=== PATIENT | male | born 1960 | race Caucasian/White ===

== ENCOUNTER 2017-08-03 10:21 | Inpatient (IN) | payer OTHER ==
[2017-08-03] MEDS ORDERED: MAGNESIUM SULFATE-D5W PMX 1 GM in DEXTROSE/WATER 1 100ML.BAG IVPB STA (10:55)
[2017-08-03] MEDS ORDERED: IPRATROPIUM 0.5 MG/2.5 ML NEBU INHALATION STA (10:55)
[2017-08-03] MEDS ORDERED: methylPREDNISolone SOD SUCCI 125 MG/2 ML VIAL IV STA (10:55)
[2017-08-03] MEDS ORDERED: ALBUTEROL NEBULIZED 2.5 MG/3 ML INHALATION STA (10:55)
[2017-08-03 11:46] LABS: Anisocytosis Slight; Basophils # (A) 0.1 k/uL (0-0.2); Basophils % (A) 0 %; Eosinophils # (A) 0.1 k/uL (0-0.7); Eosinophils % (A) 0 %; HCT 45.1 % (39.0-53.0); Lymphocytes # (A) 1.9 k/uL (1.0-4.8); Lymphocytes % (A) 14 %; MCHC 33.2 g/dL (31.0-37.0); MCV 81.4 fL (80.0-100.0); Mean Platelet Volume 6.5; Microcytosis Slight; Monocytes # (A) 0.6 k/uL (0-1.0); Monocytes % (A) 4 %; Neutrophils # (A) 10.4 k/uL (1.3-7.7); Neutrophils % (A) 79 %; Platelet Count 191 k/uL (150-450); RBC 5.54 m/uL (4.30-5.90); RDW 18.8 % (11.5-15.5); WBC 13.2 k/uL (3.8-10.6)
[2017-08-03 11:51] LABS: ALT 45 U/L (21-72); AST 24 U/L (17-59); Albumin 3.7 g/dL (3.5-5.0); Alkaline Phosphatase 67 U/L (38-126); Anion Gap 10 mmol/L; Blood Urea Nitrogen 23 mg/dL (9-20); Calcium 9.4 mg/dL (8.4-10.2); Carbon Dioxide 30 mmol/L (22-30); Chloride 100 mmol/L (98-107); Glucose 102 mg/dL (74-99); Potassium 4.4 mmol/L (3.5-5.1); Sodium 140 mmol/L (137-145); Total Bilirubin 0.4 mg/dL (0.2-1.3); Total Protein 6.6 g/dL (6.3-8.2)
[2017-08-03 11:59] LABS: Prothrombin Time 10.1 sec (9.0-12.0)
[2017-08-03 12:03] LABS: Partial Thromboplastin Time 21.4 sec (22.0-30.0)
--- NOTE | 2017-08-03 12:31 | XR ---
EXAMINATION TYPE: XR chest 2V DATE OF EXAM: 08/03/2017 COMPARISON: Prior chest x-ray 04/26/2016 HISTORY: Difficulty breathing TECHNIQUE: Frontal and lateral views of the chest are obtained. FINDINGS: There is a left-sided pneumothorax likely approximately 50%. No evident effusion. Basilar atelectasis noted on the left. Cardiac mediastinal silhouette, pulmonary vascularity and baldemar within normal limits accounting for patient rotation towards the right. IMPRESSION: Left-sided pneumothorax as described. Patient is rotated. Tension not identified with ce rtainty. Report relayed to Dr. Mazariegos telephonically at the time of interpretation.
--- NOTE | 2017-08-03 12:34 | ED ---
SOB HPI - General Chief Complaint: Shortness of Breath Stated Complaint: SOB Time Seen by Provider: 08/03/17 10:48 Source: patient Mode of arrival: ambulatory Limitations: no limitations - History of Present Illness Initial Comments: Patient presents with shortness of breath, getting worse for several days. He has a history of COPD. He has taken breathing treatments and steroids at home, but with no relief. Patient has no fevers or chills. He has no chest pain or tightness. He has no belly or back pain. He has no nausea or vomiting. Nothing is making his symptoms better. They're only getting worse over time. He has no lightheadedness or dizziness. He denies syncope or presyncope. - Related Data Home Medications Medication Instructions Recorded Confirmed Cholecalciferol [Vitamin D3] 1,000 unit PO BID 01/11/15 08/03/17 Montelukast [Singulair] 10 mg PO HS 01/11/15 08/03/17 Simvastatin [Zocor] 20 mg PO HS 01/11/15 08/03/17 Vit C/E/Zn/Coppr/Lutein/Zeaxan 1 cap PO BID 01/11/15 08/03/17 [Preservision Areds 2 Softgel] Acidophilus Pearls 1 cap PO DAILY 04/26/16 08/03/17 Citalopram Hydrobromide [CeleXA] 40 mg PO DAILY 04/26/16 08/03/17 Alyssa C 1,000 mg PO BID 04/26/16 08/03/17 Multivit-Min/FA/Lycopen/Lutein 1 tab PO DAILY 04/26/16 08/03/17 [Centrum Silver Tablet] Rivaroxaban [Xarelto] 20 mg PO DAILY 04/26/16 08/03/17 Albuterol Inhaler [Ventolin Hfa 1 puff INHALATION RT-Q6H PRN 08/03/17 08/03/17 Inhaler] Glucosam/Elijah-Msm1/C/Nikunj/Bosw 1 tab PO BID 08/03/17 08/03/17 [Glucosamine-Chondroitin Tablet] Psyllium Husk [Metamucil] 0.8 gm PO DAILY 08/03/17 08/03/17 Testosterone Cypionate 200 mg IM Q14D 08/03/17 08/03/17 [Depo-Testosterone] Tiotropium 18 Mcg/Puff [Spiriva] 1 cap INHALATION RT-DAILY 08/03/17 08/03/17 Allergies Allergy/AdvReac Type Severity Reaction Status Date / Time adhesive tape Allergy Rash/Hives Verified 08/03/17 10:57 Review of Systems ROS Statement: Those systems with pertinent positive or pertinent negative responses have been documented in the HPI. ROS Other: All systems not noted in ROS Statement are negative. Past Medical History Past Medical History: COPD, Hyperlipidemia Additional Past Medical History / Comment(s): Pulmonary embolism involving the RML arteries diagnosed in 01/2016, obesity, restless leg syndrome History of Any Multi-Drug Resistant Organisms: None Reported Past Surgical History: Appendectomy, Hernia Repair, Tonsillectomy Additional Past Surgical History / Comment(s): tic delaroux surgery, three incisonal hernias repairs and appendectomy for a perforated appendix Past Psychological History: Anxiety Smoking Status: Former smoker Past Alcohol Use History: Occasional Past Drug Use History: None Reported - Past Family History Father Additional Family Medical History / Comment(s): bronchitis pleuricy. dad's mom had leukemia Mother Additional Family Medical History / Comment(s): emphysemia General Exam Limitations: no limitations General appearance: alert, in no apparent distress Head exam: Present: atraumatic, normocephalic, normal inspection Eye exam: Present: normal appearance, PERRL, EOMI. Absent: scleral icterus, conjunctival injection, periorbital swelling ENT exam: Present: normal exam, mucous membranes moist Neck exam: Present: normal inspection. Absent: tenderness, meningismus, lymphadenopathy Respiratory exam: Present: respiratory distress, wheezes. Absent: rales, rhonchi, stridor Cardiovascular Exam: Present: regular rate, normal rhythm, normal heart sounds. Absent: systolic murmur, diastolic murmur, rubs, gallop, clicks GI/Abdominal exam: Present: soft, normal bowel sounds. Absent: distended, tenderness, guarding, rebound, rigid Extremities exam: Present: normal inspection, full ROM, normal capillary refill. Absent: tenderness, pedal edema, joint swelling, calf tenderness Back exam: Present: normal inspection Neurological exam: Present: alert, oriented X3, CN II-XII intact Psychiatric exam: Present: normal affect, normal mood Skin exam: Present: warm, dry, intact, normal color. Absent: rash Course Vital Signs 08/03/17 08/03/17 08/03/17 10:44 11:09 11:27 Temperature 98.1 F Pulse Rate 81 85 85 Respiratory 22 Rate Blood Pressure 133/70 O2 Sat by Pulse 92 L Oximetry 08/03/17 08/03/17 11:49 12:01 Temperature Pulse Rate 88 99 Respiratory 20 Rate Blood Pressure 133/78 O2 Sat by Pulse 92 L Oximetry Medical Decision Making - Medical Decision Making Patient presents with shortness of breath. I gave him IV magnesium, IV Solu- Medrol, breathing treatments. Chest x-ray reveals no pneumonia, but is positive for left-sided pneumothorax. Patient is placed on supplement oxygen and will be admitted to the hospital. - Lab Data Result diagrams: 08/03/17 11:25 08/03/17 11:25 Lab Results 08/03/17 08/03/17 08/03/17 Range/Units 11:25 11:25 11:25 WBC 13.2 H (3.8-10.6) k/uL RBC 5.54 (4.30-5.90) m/uL Hgb 15.0 (13.0-17.5) gm/dL Hct 45.1 (39.0-53.0) % MCV 81.4 (80.0-100.0) fL MCH 27.0 (25.0-35.0) pg MCHC 33.2 (31.0-37.0) g/dL RDW 18.8 H (11.5-15.5) % Plt Count 191 (150-450) k/uL Neutrophils % 79 % Lymphocytes % 14 % Monocytes % 4 % Eosinophils % 0 % Basophils % 0 % Neutrophils # 10.4 H (1.3-7.7) k/uL Lymphocytes # 1.9 (1.0-4.8) k/uL Monocytes # 0.6 (0-1.0) k/uL Eosinophils # 0.1 (0-0.7) k/uL Basophils # 0.1 (0-0.2) k/uL Anisocytosis Slight Microcytosis Slight PT (9.0-12.0) sec INR (<1.2) APTT (22.0-30.0) sec Sodium 140 (137-145) mmol/L Potassium 4.4 (3.5-5.1) mmol/L Chloride 100 (98-107) mmol/L Carbon Dioxide 30 (22-30) mmol/L Anion Gap 10 mmol/L BUN 23 H (9-20) mg/dL Creatinine 0.62 L (0.66-1.25) mg/dL Est GFR (CKD-EPI)AfAm >90 (>60 ml/min/1.73 sqM) Est GFR (CKD-EPI)NonAf >90 (>60 ml/min/1.73 sqM) Glucose 102 H (74-99) mg/dL Calcium 9.4 (8.4-10.2) mg/dL Total Bilirubin 0.4 (0.2-1.3) mg/dL AST 24 (17-59) U/L ALT 45 (21-72) U/L Alkaline Phosphatase 67 (38-126) U/L Troponin I (0.000-0.034) ng/mL NT-Pro-B Natriuret Pep 34 pg/mL Total Protein 6.6 (6.3-8.2) g/dL Albumin 3.7 (3.5-5.0) g/dL 08/03/17 08/03/17 Range/Units 11:25 11:25 WBC (3.8-10.6) k/uL RBC (4.30-5.90) m/uL Hgb (13.0-17.5) gm/dL Hct (39.0-53.0) % MCV (80.0-100.0) fL MCH (25.0-35.0) pg MCHC (31.0-37.0) g/dL RDW (11.5-15.5) % Plt Count (150-450) k/uL Neutrophils % % Lymphocytes % % Monocytes % % Eosinophils % % Basophils % % Neutrophils # (1.3-7.7) k/uL Lymphocytes # (1.0-4.8) k/uL Monocytes # (0-1.0) k/uL Eosinophils # (0-0.7) k/uL Basophils # (0-0.2) k/uL Anisocytosis Microcytosis PT 10.1 (9.0-12.0) sec INR 1.0 (<1.2) APTT 21.4 L (22.0-30.0) sec Sodium (137-145) mmol/L Potassium (3.5-5.1) mmol/L Chloride (98-107) mmol/L Carbon Dioxide (22-30) mmol/L Anion Gap mmol/L BUN (9-20) mg/dL Creatinine (0.66-1.25) mg/dL Est GFR (CKD-EPI)AfAm (>60 ml/min/1.73 sqM) Est GFR (CKD-EPI)NonAf (>60 ml/min/1.73 sqM) Glucose (74-99) mg/dL Calcium (8.4-10.2) mg/dL Total Bilirubin (0.2-1.3) mg/dL AST (17-59) U/L ALT (21-72) U/L Alkaline Phosphatase (38-126) U/L Troponin I <0.012 (0.000-0.034) ng/mL NT-Pro-B Natriuret Pep pg/mL Total Protein (6.3-8.2) g/dL Albumin (3.5-5.0) g/dL 08/03/17 12:33 Twelve-lead EKG shows ventricular rate 84 bpm, normal OH interval and QRS complexes, no ST elevation or depression, interpreted by me as normal sinus rhythm. Critical Care Time Critical Care Time: Yes Total Critical Care Time: 35 Disposition Clinical Impression: COPD (chronic obstructive pulmonary disease) Disposition: ADMITTED IP TO THIS HOSP Condition: Serious Referrals: Yvan Barton MD [Primary Care Provider] - 1-2 days
[2017-08-03] MEDS ORDERED: ONDANSETRON 4 MG/2 ML VIAL IVP PRN (12:35)
[2017-08-03] MEDS ORDERED: NALOXONE 0.4 MG/ML 1 ML VIAL IV PRN (12:35)
[2017-08-03] MEDS ORDERED: ALBUTEROL NEBULIZED 2.5 MG/3 ML INHALATION PRN (12:38)
[2017-08-03] MEDS ORDERED: RX INFO: IV CONTRAST WAS GIVEN 1 EACH MISC MISCELLANE PRN (13:42)
--- NOTE | 2017-08-03 14:06 | CT ---
EXAMINATION TYPE: CT angio chest DATE OF EXAM: 08/03/2017 COMPARISON: Chest x-ray from earlier in the day. HISTORY: KASEY. Pneumothorax CT DLP: 683 mGycm CONTRAST: CT chest with contrast and 3D reconstruction with MIP imaging is performed with IV Contrast, patient injected with 100ml mL of Isovue 370. Contrast-enhanced CT of the chest was performed through the course of the pulmonary arteries with burt g and mediastinal window settings submitted. 3D reconstruction with MIP imaging was also performed. PULMONARY ARTERIES: The pulmonary arteries and their major tributaries are patent. I do not see sandi dence for sizable filling defect to suggest pulmonary embolic process. LUNGS: 50% left-sided pneumothorax noted. Left lower lobe infiltrate and/or atelectasis. Mild depende nt atelectasis right lung base. No mediastinal shift. Upper lobe bulla noted. MEDIASTINUM: Thoracic aorta is of normal caliber,however, evaluation is limited given timing of the contrast bolus. If there is concern for thoracic aortic pathology consider NIKI. Correlate clinicall y . The heart is mildly enlarged. No evidence for mediastinal mass. No mediastinal lymph nodes grea ter than 1cm. HILAR STRUCTURES: No evidence for mass. No hilar lymph nodes greater than 1 cm. UPPER ABDOMEN: No significant abnormality is seen. IMPRESSION: 1. No evidence for Pulmonary embolism at this time. 2. 50% left-sided pneumothorax. No evidence for mediastinal shift. 3. Left basilar atelectasis or infiltrate.
[2017-08-03] MEDS: HYDROcodone/APAP 5-325MG 1 EACH TAB PO PRN ×2 (14:47→19:22)
--- NOTE | 2017-08-03 14:57 | XR ---
EXAMINATION TYPE: XR chest 1V DATE OF EXAM: 08/03/2017 COMPARISON: Prior chest x-ray same date earlier time HISTORY: Pneumothorax, status post thoracic vent placement TECHNIQUE: Single frontal view of the chest is obtained. FINDINGS: There is been interval placement of a thoracic vent on the left flank catheter is coursing towards the mediastinum. Pneumothorax is improved as compared to prior exam. There is some minimal b asilar atelectasis present. IMPRESSION: No evident complication status post chest tube placement. Improved pneumothorax.
[2017-08-03] MEDS: NYSTATIN 100,000 UNIT/ML SUSP 500,000 UNIT/5 ML CUP PO SCH ×3 (15:14→21:50)
--- NOTE | 2017-08-03 15:17 | P.HPIM ---
History of Present Illness 56 year old was sent to the ER from pulmonology office with increasing shortness of breath. Patient states he has been on CPAP machine for sleep apnea for 3 weeks.Patient has chronic COPD. Was evaluated by pulmonolgy chest tube inserted. Review of Systems Respiratory: Reports cough, Reports pain, Reports wheezing Past Medical History Past Medical History: COPD, Hyperlipidemia, Pneumonia, Pulmonary Embolus (PE), Sleep Apnea/CPAP/BIPAP Additional Past Medical History / Comment(s): Recent respiratory infection with 2 different antibiotics uses/steriods, VERA with CPAP started beginning of July, R pulmonary embolism, back pain but worsened with recent problem of coughing, DDD, diverticular dx. History of Any Multi-Drug Resistant Organisms: None Reported Past Surgical History: Appendectomy, Hernia Repair, Tonsillectomy Additional Past Surgical History / Comment(s): tic delaroux surgery, three incisonal hernias repairs and appendectomy for a perforated appendix, ulvula trimmed, deviated septum surgery, colonoscopy. Past Anesthesia/Blood Transfusion Reactions: No Reported Reaction Smoking Status: Former smoker - Past Family History Father Additional Family Medical History / Comment(s): bronchitis pleuricy. dad's mom had leukemia Mother Additional Family Medical History / Comment(s): emphysemia Medications and Allergies Home Medications Medication Instructions Recorded Confirmed Type Cholecalciferol [Vitamin D3] 1,000 unit PO BID 01/11/15 08/03/17 History Montelukast [Singulair] 10 mg PO HS 01/11/15 08/03/17 History Simvastatin [Zocor] 20 mg PO HS 01/11/15 08/03/17 History Vit C/E/Zn/Coppr/Lutein/Zeaxan 1 cap PO BID 01/11/15 08/03/17 History [Preservision Areds 2 Softgel] Acidophilus Pearls 1 cap PO DAILY 04/26/16 08/03/17 History Citalopram Hydrobromide [CeleXA] 40 mg PO DAILY 04/26/16 08/03/17 History Alyssa C 1,000 mg PO BID 04/26/16 08/03/17 History Multivit-Min/FA/Lycopen/Lutein 1 tab PO DAILY 04/26/16 08/03/17 History [Centrum Silver Tablet] Rivaroxaban [Xarelto] 20 mg PO DAILY 04/26/16 08/03/17 History Albuterol Inhaler [Ventolin Hfa 1 puff INHALATION RT-Q6H PRN 08/03/17 08/03/17 History Inhaler] Glucosam/Elijah-Msm1/C/Nikunj/Bosw 1 tab PO BID 08/03/17 08/03/17 History [Glucosamine-Chondroitin Tablet] Psyllium Husk [Metamucil] 0.8 gm PO DAILY 08/03/17 08/03/17 History Testosterone Cypionate 200 mg IM Q14D 08/03/17 08/03/17 History [Depo-Testosterone] Tiotropium 18 Mcg/Puff [Spiriva] 1 cap INHALATION RT-DAILY 08/03/17 08/03/17 History Allergies Allergy/AdvReac Type Severity Reaction Status Date / Time adhesive tape Allergy Rash/Hives Verified 08/03/17 10:57 Physical Exam Vitals: Vital Signs Temp Pulse Resp BP Pulse Ox 08/03/17 14:42 98 F 93 20 137/69 93 L 08/03/17 14:21 100 20 93 L 08/03/17 13:50 102 H 20 132/64 92 L 08/03/17 12:47 100 20 140/74 91 L 08/03/17 12:01 99 08/03/17 11:49 88 20 133/78 92 L 08/03/17 11:27 85 08/03/17 11:09 85 08/03/17 10:44 98.1 F 81 22 133/70 92 L Intake and Output 08/03/17 08/03/17 08/03/17 06:59 14:59 22:59 Other: Weight 122.47 kg - Constitutional General appearance: mild distress - EENT ENT: normal oropharynx Ears: bilateral: normal - Neck Neck: normal ROM - Respiratory Respiratory: left: diminished, bilateral: rhonchi, wheezing - Cardiovascular Rhythm: regular - Gastrointestinal General gastrointestinal: soft - Integumentary Integumentary: flushed - Neurologic Neurologic: CNII-XII intact - Musculoskeletal Musculoskeletal: generalized weakness - Psychiatric Psychiatric: A&O x's 3, appropriate affect, intact judgment & insight Results CBC & Chem 7: 08/03/17 11:25 08/03/17 11:25 Labs: Abnormal Lab Results - Last 24 Hours (Table) 08/03/17 08/03/17 08/03/17 Range/Units 11:25 11:25 11:25 WBC 13.2 H (3.8-10.6) k/uL RDW 18.8 H (11.5-15.5) % Neutrophils # 10.4 H (1.3-7.7) k/uL APTT 21.4 L (22.0-30.0) sec BUN 23 H (9-20) mg/dL Creatinine 0.62 L (0.66-1.25) mg/dL Glucose 102 H (74-99) mg/dL Chest x-ray: report reviewed Thrombosis Risk Factor Assmnt - Choose All That Apply Any of the Below Risk Factors Present?: Yes Each Factor Represents 1 point: Abnormal pulmonary function (COPD), Age 41-60 years, Obesity (BMI >25), Serious lung disease incl. pneumonia (< 1month) Other Risk Factors: No Other congenital or acquired thrombophilia - If yes, enter type in comment: No Thrombosis Risk Factor Assessment Total Risk Factor Score: 4 Thrombosis Risk Factor Assessment Level: Moderate Risk Assessment and Plan Plan: assessment COPD exacerbation Pneumothorax 50% left with chest tube hyperlipidemia hx pulmonary embolus sleep apnea with CPAP plan continued consultation with pulmonology
[2017-08-03] MEDS ORDERED: MORPHINE SULFATE/PF 10MG/10ML VL IVP PRN (16:23)
[2017-08-03] MEDS: MORPHINE SULFATE/PF 10MG/10ML VL IVP PRN ×2 (17:10→23:16)
--- NOTE | 2017-08-03 17:33 | P.PCN ---
Date of Procedure: 08/03/17 Preoperative Diagnosis: Left pneumothorax Postoperative Diagnosis: Left sided pneumothorax with reexpansion of the left lung Procedure(s) Performed: Left-sided Thora-Vent insertion Anesthesia: local Surgeon: Giovani Guadarrama Estimated Blood Loss (ml): 0 Pathology: none sent Condition: stable Disposition: PACU Indications for Procedure: Acute shortness of breath and large left-sided pneumothorax Operative Findings: Large left-sided pneumothorax per chest x-ray Description of Procedure: The procedure was explained in detail to the patient. Risks and benefits were provided including the risk of bleeding. Knowing the procedure needed to be done under urgent basis based on his profound shortness of breath and large left lung pneumothorax. The THORA-VENT was positioned and gently introduced through a small incision in the left anterior chest through the second intercostal space. The trocar tip perforated the pleural membrane and entered the pleural cavity. The red signal diaphragm deflects upward, at which point the trocar was not advanced any further. The full length of the catheter was introduced into the pleural cavity using the trocar as a stabilizing guide. The trocar was removed and the device was secured using the included adhesive patch. This was subsequently attached to a Pleur-evac. Air leak present. No complications. Follow-up chest x-ray reveals reexpansion of the left lung.
--- NOTE | 2017-08-03 17:37 | P.CNPUL ---
History of Present Illness Consult date: 08/03/17 Reason for consult: dyspnea, pneumothorax History of present illness: A pleasant 56-year-old male patient with known history of COPD, severe tracheal bronchomalacia, previous history of pulmonary embolism maintained on Xarelto, indigent 2 history of severe obstructive sleep apnea with an AHI of 68.4 and the patient was treated with CPAP which was recently dropped to a pressure of 10 cm of water. The patient has a preserved LV function with an ejection fraction of 55-60% without any valvular abnormalities. His other comorbid conditions include tic douloureux, hyperlipidemia, and obesity. He is an ex- smoker. This patient has been having symptoms of acute COPD exacerbation tracheal bronchitis which was being managed on outpatient basis by Dr. Gonsalez and Dr. Michelle Darling. The patient has received a combination of bronchodilators, and steroids without much of an improvement. Today was seen again in the office and he was actively coughing and bronchospastic. He was also having pain across his left chest. He came in to the burst department and the chest x-ray showed a pneumothorax on the left. Note that the patient has bullous emphysema and the findings were not absolutely clear to me. I proceeded with a CAT scan of the chest that showed no evidence of any pulmonary embolism. There was a 50 % pneumothorax on the left along with some bullous emphysematous changes in the lung apices bilaterally. At that point, I inserted a Thoravent in the emergency department on the left with successful expansion of the left lung. The patient remained hemodynamically stable throughout the procedure. Pulse ox improved and he came up to 95-96% on 2 L of oxygen by nasal cannula following the procedure. The patient has maintained on Spiriva on outpatient basis regarding his COPD. He is an ex-smoker. He has been doing well and his pulmonary embolism dates back to 2016. No swelling in lower extremities. No other complaint otherwise for now. No altered mental status. Review of Systems Comprehensive General Adult ROS Reported by Patient Constitutional Constitutional: no fever, no night sweats, no significant weight gain, no significant weight loss, exercise intolerance secondary to shortness of breath Eyes Eyes: no dry eyes, no vision change, no irritation ENMT Ears: no difficulty hearing, no ear pain Nose: no frequent nosebleeds, no nose problems, no sinus problems Mouth/Throat: no sore throat, no bleeding gums, no snoring, no dry mouth, no mouth ulcers, no oral abnormalities, no teeth problems Cardiovascular Cardiovascular: Left-sided chest pain, worse with breathing and movement., no arm pain on exertion, no shortness of breath when walking, no shortness of breath when lying down, no palpitations, no known heart murmur Respiratory Respiratory: Increased cough, chest tightness and wheezing and pain across the left chest area and the patient is having shortness of breath, sleep apnea. Pneumothorax was also identified in the emergency department. The patient has been vigorously coughing Gastrointestinal Gastrointestinal: no abdominal pain, no nausea, no vomiting, no constipation, normal appetite, no diarrhea, not vomiting blood, no dyspepsia, no GERD Genitourinary Genitourinary: no incontinence, no difficulty urinating, no hematuria, no increased frequency Musculoskeletal Musculoskeletal: no muscle aches, no muscle weakness, no arthralgias/joint pain , no back pain, no swelling in the extremities Integumentary Skin: no abnormal mole, no jaundice, no rashes, no laceration Neurologic Neurologic: no loss of consciousness, no weakness, no numbness, no seizures, no dizziness, no migraines, no headaches, no tremor Psychiatric Psych: no depression, no sleep disturbances, feeling safe in a relationship, no alcohol abuse, no anxiety, no hallucinations, no suicidal thoughts Endocrine Endocrine: no fatigue Hematologic/Lymphatic Hematologic/Lymphatic no swollen glands, no bruising, no excessive bleeding Allergic/Immunologic Allergy/Immunologic: no runny nose, no sinus pressure, no itching, no hives, no frequent sneezing Screening Past Medical History Past Medical History: COPD, Hyperlipidemia, Pneumonia, Pulmonary Embolus (PE), Sleep Apnea/CPAP/BIPAP Additional Past Medical History / Comment(s): COPD, bullous emphysema, previous history of pulmonary embolism back in 2016, obstructive sleep apnea severe maintained on CPAP at a pressure of 10 cm of water, tic douloureux, hyperlipidemia, degenerative arthritis, diverticulosis, chronic back pain History of Any Multi-Drug Resistant Organisms: None Reported Past Surgical History: Appendectomy, Hernia Repair, Tonsillectomy Additional Past Surgical History / Comment(s): tic delaroux surgery, three incisonal hernias repairs and appendectomy for a perforated appendix, ulvula trimmed, deviated septum surgery, colonoscopy. Past Anesthesia/Blood Transfusion Reactions: No Reported Reaction Smoking Status: Former smoker - Past Family History Father Additional Family Medical History / Comment(s): bronchitis pleuricy. dad's mom had leukemia Mother Additional Family Medical History / Comment(s): emphysemia Medications and Allergies Home Medications Medication Instructions Recorded Confirmed Type Cholecalciferol [Vitamin D3] 1,000 unit PO BID 01/11/15 08/03/17 History Montelukast [Singulair] 10 mg PO HS 01/11/15 08/03/17 History Simvastatin [Zocor] 20 mg PO HS 01/11/15 08/03/17 History Vit C/E/Zn/Coppr/Lutein/Zeaxan 1 cap PO BID 01/11/15 08/03/17 History [Preservision Areds 2 Softgel] Acidophilus Pearls 1 cap PO DAILY 04/26/16 08/03/17 History Citalopram Hydrobromide [CeleXA] 40 mg PO DAILY 04/26/16 08/03/17 History Alyssa C 1,000 mg PO BID 04/26/16 08/03/17 History Multivit-Min/FA/Lycopen/Lutein 1 tab PO DAILY 04/26/16 08/03/17 History [Centrum Silver Tablet] Rivaroxaban [Xarelto] 20 mg PO DAILY 04/26/16 08/03/17 History Albuterol Inhaler [Ventolin Hfa 1 puff INHALATION RT-Q6H PRN 08/03/17 08/03/17 History Inhaler] Glucosam/Elijah-Msm1/C/Nikunj/Bosw 1 tab PO BID 08/03/17 08/03/17 History [Glucosamine-Chondroitin Tablet] Psyllium Husk [Metamucil] 0.8 gm PO DAILY 08/03/17 08/03/17 History Testosterone Cypionate 200 mg IM Q14D 08/03/17 08/03/17 History [Depo-Testosterone] Tiotropium 18 Mcg/Puff [Spiriva] 1 cap INHALATION RT-DAILY 08/03/17 08/03/17 History Allergies Allergy/AdvReac Type Severity Reaction Status Date / Time adhesive tape Allergy Rash/Hives Verified 08/03/17 10:57 Physical Exam Vitals: Vital Signs Temp Pulse Pulse Resp BP BP Pulse Ox 08/03/17 16:49 92 24 03/28/18 16:29 98 08/03/17 16:16 94 08/03/17 15:14 98 F 92 24 127/77 92 L 08/03/17 14:42 98 F 93 20 137/69 93 L 08/03/17 14:21 100 20 93 L 08/03/17 13:50 102 H 20 132/64 92 L 08/03/17 12:47 100 20 140/74 91 L 08/03/17 12:01 99 08/03/17 11:49 88 20 133/78 92 L 08/03/17 11:27 85 08/03/17 11:09 85 08/03/17 10:44 98.1 F 81 22 133/70 92 L Intake and Output 08/03/17 08/03/17 08/03/17 06:59 14:59 22:59 Other: Weight 122.47 kg General Appearance no diaphoresis, patient was having respiratory distress, speech interrupted because of frequent cough dyspnea, no pallor, not cachectic , well nourished, appears well, obesity HEENT no pursed lip breathing, no jugular venous distention, no mucous membrane cyanosis, no perioral cyanosis, mallampati classification: class 1, Mallampati Classification: Class 4 Chest shows a marked diminished breath sound bilaterally along with diffuse expiratory wheezes and prolongation of expiratory phase of breathing. Breath sounds were diminished on the left compared to the right and breath sounds equal and following insertion of a small chest tube anteriorly on the left. No use of accessory muscles of breathing. sounds: rales / crackles: bilaterally: midlung an, decreased air movement Heart no right ventricular heave, no distant heart sounds, no s3 gallop, (normal ) jugular vein: jugular venous distention: by 0cm, (normal) jugular vein GI bowel sounds: hyperactive (borborygmi), bowel sounds: diminished or absent Extremities no cyanosis, no clubbing, no edema Neurologic no decreased mental status, no somnolence, no confusion Assisstive Devices: ambulates with no assitive devices Gait and Mobility: gait WNL, full weight bearing Skin General Appearance normal, (normal) normal except as noted Results - Laboratory Findings CBC and BMP: 08/03/17 11:25 08/03/17 11:25 PT/INR, D-dimer PT 10.1 sec (9.0-12.0) 08/03/17 11:25 INR 1.0 (<1.2) 08/03/17 11:25 Abnormal lab findings: Abnormal Labs 08/03/17 08/03/17 08/03/17 11:25 11:25 11:25 WBC 13.2 H RDW 18.8 H Neutrophils # 10.4 H APTT 21.4 L BUN 23 H Creatinine 0.62 L Glucose 102 H - Diagnostic Findings Chest x-ray: image reviewed CT scan - chest: image reviewed Assessment and Plan Plan: Assessment 1 acute secondary left-sided pneumothorax, 50% of the left hemithorax, status post insertion of Thora vent. The patient has positive air leak. There is adequate expansion of the left lung following the procedure. 2 acute shortness of breath secondary to a left-sided pneumothorax and COPD exacerbation 3 acute tracheobronchitis 4 acute COPD exacerbation with secondary shortness of breath cough bronchospasm wheezing 5 obstructive sleep apnea with an AHI of 64 currently on CPAP pressure of 10 cm of water 6 previous history of pulmonary embolism dates back in 2015 7 restless leg syndrome 8 hyperlipidemia 9 tic douloureux Plan Keep theThora vent attached to a Pleur-evac and monitor the air leak. Daily chest x-rays. Put the patient on a combination of DuoNeb the regimen around the clock, IV Solu-Medrol and antitussive medications will be utilized to suppress his cough. Provide the patient incentive spirometer. Hazard for pain control. IV Solu Medrol 60 every 6 hours. Empiric antibiotic coverage with Levaquin 750 mg by mouth daily. Consultation for CT surgery. Resume outpatient medications and the Xarelto can be held for now and be replaced by heparin subcu for DVT prophylaxis as the patient has been adequately treated for his pulmonary embolism that he had back in 2015.
[2017-08-03] MEDS: methylPREDNISolone SOD SUCCI 40 MG/ML 1 ML VIAL IV SCH ×2 (18:33→23:16)
[2017-08-03] MEDS: LEVOFLOXACIN 750 MG TAB PO SCH (18:34)
[2017-08-03] MEDS: ATORVASTATIN 10 MG TAB PO SCH (20:39)
[2017-08-03] MEDS: MONTELUKAST 10 MG TAB PO SCH (20:40)
[2017-08-03] MEDS: FAMOTIDINE 20 MG TAB PO SCH (20:40)
[2017-08-03] MEDS: ALBUTEROL NEBULIZED 2.5 MG/3 ML INHALATION PRN (20:41)
[2017-08-03 21:45] LABS: Glucose,Whole Blood 224 mg/dL (75-99)
[2017-08-03] MEDS: INSULIN ASPART 100 UNIT/ML 1 ML 10 ML VIAL SQ SCH (21:49)
[2017-08-03] MEDS: HEPARIN SODIUM,PORCINE 5,000 UNIT/ML 1 ML VIAL SQ SCH (23:15)
[2017-08-04] MEDS: HYDROcodone/APAP 5-325MG 1 EACH TAB PO PRN ×4 (03:01→22:15)
[2017-08-04] MEDS: methylPREDNISolone SOD SUCCI 40 MG/ML 1 ML VIAL IV SCH ×4 (06:44→23:42)
[2017-08-04 07:44] LABS: Glucose,Whole Blood 180 mg/dL (75-99)
[2017-08-04] MEDS: INSULIN ASPART 100 UNIT/ML 1 ML 10 ML VIAL SQ SCH ×5 (07:45→21:28)
[2017-08-04] MEDS: MORPHINE SULFATE/PF 10MG/10ML VL IVP PRN (07:46)
[2017-08-04] MEDS: HEPARIN SODIUM,PORCINE 5,000 UNIT/ML 1 ML VIAL SQ SCH ×3 (07:46→23:42)
[2017-08-04] MEDS: CITALOPRAM HYDROBROMIDE 20 MG TAB PO SCH (07:47)
[2017-08-04] MEDS: FAMOTIDINE 20 MG TAB PO SCH ×2 (07:48→20:19)
[2017-08-04] MEDS: NYSTATIN 100,000 UNIT/ML SUSP 500,000 UNIT/5 ML CUP PO SCH ×4 (07:48→22:21)
[2017-08-04] MEDS: ALBUTEROL NEBULIZED 2.5 MG/3 ML INHALATION PRN (07:48)
[2017-08-04] MEDS ORDERED: IPRATROPIUM 0.5 MG/2.5 ML NEBU INHALATION SCH (08:00)
[2017-08-04] MEDS: LEVOFLOXACIN 750 MG TAB PO SCH (08:59)
[2017-08-04] MEDS ORDERED: IPRATROPIUM-ALBUTEROL 3 ML NEB INHALATION PRN (11:34)
[2017-08-04 12:01] LABS: Glucose,Whole Blood 154 mg/dL (75-99)
[2017-08-04] MEDS: IPRATROPIUM-ALBUTEROL 3 ML NEB INHALATION SCH ×3 (12:11→20:21)
--- NOTE | 2017-08-04 12:14 | XR ---
EXAMINATION TYPE: XR chest 2V DATE OF EXAM: 08/04/2017 COMPARISON: Prior chest x-ray 08/03/2017 HISTORY: Chest tube and pneumothorax TECHNIQUE: Frontal and lateral views of the chest are obtained. FINDINGS: Left-sided chest tube is again noted, tubing coursing laterally although there are differe nces in rotation. Small left apical pneumothorax persists. Some basilar atelectatic changes are pres ent. Minimal subcutaneous emphysema noted. No evident pleural effusion. IMPRESSION: Similar findings. Chest tube in place. His or atelectasis. Only minimal apical pneumotho rax suspected.
[2017-08-04] MEDS ORDERED: PROMETHAZ-COD 6.25-10 MG/5 ML 5 ML CUP PO PRN (13:35)
[2017-08-04 14:16] LABS: Hemoglobin A1C 6.6 % (4.0-6.0)
[2017-08-04] MEDS: PROMETHAZ-COD 6.25-10 MG/5 ML 5 ML CUP PO SCH ×3 (14:20→23:41)
[2017-08-04] MEDS: MORPHINE ORAL SOLN 10 MG/5 ML CUP PO PRN ×2 (14:22→22:16)
--- NOTE | 2017-08-04 15:41 | P.PN ---
Subjective Progress Note Date: 08/04/17 Principal diagnosis: Acute secondary left-sided pneumothorax, 50% left pneumothorax, status post insertion of Thoravent. Acute exacerbation of COPD, and acute tracheobronchitis. A pleasant 56-year-old male patient with known history of COPD, severe tracheal bronchomalacia, previous history of pulmonary embolism maintained on Xarelto, indigent 2 history of severe obstructive sleep apnea with an AHI of 68.4 and the patient was treated with CPAP which was recently dropped to a pressure of 10 cm of water. The patient has a preserved LV function with an ejection fraction of 55-60% without any valvular abnormalities. His other comorbid conditions include tic douloureux, hyperlipidemia, and obesity. He is an ex- smoker. This patient has been having symptoms of acute COPD exacerbation tracheal bronchitis which was being managed on outpatient basis by Dr. Gonsalez and Dr. Michelel Darling. The patient has received a combination of bronchodilators, and steroids without much of an improvement. Today was seen again in the office and he was actively coughing and bronchospastic. He was also having pain across his left chest. He came in to the burst department and the chest x-ray showed a pneumothorax on the left. Note that the patient has bullous emphysema and the findings were not absolutely clear to me. I proceeded with a CAT scan of the chest that showed no evidence of any pulmonary embolism. There was a 50 % pneumothorax on the left along with some bullous emphysematous changes in the lung apices bilaterally. At that point, I inserted a Thoravent in the emergency department on the left with successful expansion of the left lung. The patient remained hemodynamically stable throughout the procedure. Pulse ox improved and he came up to 95-96% on 2 L of oxygen by nasal cannula following the procedure. The patient has maintained on Spiriva on outpatient basis regarding his COPD. He is an ex-smoker. He has been doing well and his pulmonary embolism dates back to 2016. No swelling in lower extremities. No other complaint otherwise for now. No altered mental status. On 08/04/2017 patient seen in follow-up. He states his shortness of breath is better, but he has a persistent barky, nonproductive cough. Today's chest x- ray was reviewed by Dr. Guadarrama, and showed Thoravent in place. Small left apical pneumothorax persists, some basilar atelectatic changes are present. No evident pleural effusion. Lung sounds are positive for scattered diffuse rhonchi throughout the lung an. Thoravent is in place, and connected to Pleur-evac, there is minimal air leak noted, on today's exam. We'll continue with current treatment, and we will add Phenergan with codeine for persistent coughing. Objective - Vital Signs Vital signs: Vital Signs Temp 97.8 F 08/04/17 07:00 Pulse 86 08/04/17 12:14 Resp 22 08/04/17 07:00 BP 153/81 08/04/17 07:00 Pulse Ox 92 L 08/04/17 07:00 Intake & Output 08/03/17 08/04/17 08/04/17 18:59 06:59 18:59 Intake Total 400 520 Output Total 1000 Balance 400 -480 Weight 122.47 kg Intake: Oral 400 520 Output: Urine 1000 Other: Voiding Method Urinal # Voids 1 - Exam General Appearance no diaphoresis, patient was having respiratory distress, speech interrupted because of frequent cough dyspnea, no pallor, not cachectic , well nourished, appears well, obesity HEENT no pursed lip breathing, no jugular venous distention, no mucous membrane cyanosis, no perioral cyanosis, mallampati classification: class 1, Mallampati Classification: Class 4 Chest shows a marked diminished breath sound bilaterally along with diffuse expiratory wheezes and prolongation of expiratory phase of breathing. Breath sounds were diminished on the left compared to the right and breath sounds equal and following insertion of a small chest tube anteriorly on the left. No use of accessory muscles of breathing. sounds: rales / crackles: bilaterally: midlung an, decreased air movement Heart no right ventricular heave, no distant heart sounds, no s3 gallop, (normal ) jugular vein: jugular venous distention: by 0cm, (normal) jugular vein GI bowel sounds: hyperactive (borborygmi), bowel sounds: diminished or absent Extremities no cyanosis, no clubbing, no edema Neurologic no decreased mental status, no somnolence, no confusion Assisstive Devices: ambulates with no assitive devices Gait and Mobility: gait WNL, full weight bearing Skin General Appearance normal, (normal) normal except as noted - Labs CBC & Chem 7: 08/03/17 11:25 08/03/17 11:25 Labs: Abnormal Lab Results - Last 24 Hours (Table) 08/03/17 08/04/17 08/04/17 Range/Units 21:41 07:33 11:58 POC Glucose (mg/dL) 224 H 180 H 154 H (75-99) mg/dL Microbiology - Last 24 Hours (Table) 08/03/17 11:25 Blood Culture - Preliminary Blood No Growth after 24 hours Assessment and Plan Plan: Assessment: 1 acute secondary left-sided pneumothorax, 50% of the left hemithorax, status post insertion of Thora vent. The patient has positive air leak. There is adequate expansion of the left lung following the procedure. 2 acute shortness of breath secondary to a left-sided pneumothorax and COPD exacerbation 3 acute tracheobronchitis 4 acute COPD exacerbation with secondary shortness of breath cough bronchospasm wheezing 5 obstructive sleep apnea with an AHI of 64 currently on CPAP pressure of 10 cm of water 6 previous history of pulmonary embolism dates back in 2016 7 restless leg syndrome 8 hyperlipidemia 9 tic douloureux Plan: Today's chest x-ray has been reviewed by Dr. Guadarrama, there is a small left apical pneumothorax persists, the Thora vent is in place, patient's left lung is he's reexpanding, minimal air leak noted. He was discussed with the patient that in the future recurrent cases of pneumothorax, he will be referred to cardiothoracic surgery for possible thoracoscopy and resection of any leaking bulla. Otherwise continue current medical treatment, continue current antibiotics, nebulized treatments, we will add Phenergan with codeine. We will continue to follow. I performed a history & physical examination of the patient and discussed their management with my nurse practitioner, Nicole Duarte. I reviewed the nurse practitioner's note and agree with the documented findings and plan of care. Lung sounds are positive for diffuse rhonchi. The findings and the impression was discussed with the patient. I attest to the documentation by the nurse practitioner. Time with Patient: Less than 30
[2017-08-04 17:23] LABS: Glucose,Whole Blood 197 mg/dL (75-99)
--- NOTE | 2017-08-04 17:33 | P.PN ---
Subjective Progress Note Date: 08/04/17 progress note being dictated for Dr. Chase. interval history:maintained on nebulized bronchodilators, antibiotics, steroids.Breathing improving, nonproductive cough.chest x-ray reporting similar findings, minimal subcu emphysema, minimal apical pneumothorax.afebrile, preliminary blood cultures negative at 24 hours. CPAP at bedside.blood sugars elevated. Objective - Vital Signs Vital signs: Vital Signs Temp 97.2 F L 08/04/17 15:00 Pulse 84 08/04/17 15:50 Resp 20 08/04/17 15:00 BP 118/64 08/04/17 15:00 Pulse Ox 92 L 08/04/17 15:00 Intake & Output 08/03/17 08/04/17 08/04/17 18:59 06:59 18:59 Intake Total 400 520 Output Total 1000 Balance 400 -480 Weight 122.47 kg Intake: Oral 400 520 Output: Urine 1000 Other: Voiding Method Urinal # Voids 1 - Exam PHYSICAL EXAM: VITAL SIGNS: [as above] GENERAL: sitting up in bed, increased respiratory effortpersistent cough HEENT: Conjunctivae normal. eyes normal. NECK: No JVD. No thyroid enlargement. No LNs CARDIOVASCULAR: S1, S2 muffled. No murmur RESPIRATION: Breath sounds diminished in the bases. occasional scattered rhonchi , no crackles.expiratory wheezing.left chest tube/Pleurax ABDOMEN: Soft, nontender . No guarding. no masses palpable.Bowel sounds heard. LEGS: No edema. no swelling PSYCHIATRY: Alert and oriented -3, mood and affect normal. NERVOUS SYSTEM: Cranial N 2-12 grossly normal. Moves all 4 limbs. Diffuse weakness No focal deficits. Skin: no ulcer no rash Joints: No active swelling. No inflammation. Lymphatic system. No LN neck axilla or groin. - Labs CBC & Chem 7: 08/03/17 11:25 08/03/17 11:25 Labs: Abnormal Lab Results - Last 24 Hours (Table) 08/03/17 08/03/17 08/04/17 Range/Units 11:25 21:41 07:33 POC Glucose (mg/dL) 224 H 180 H (75-99) mg/dL Hemoglobin A1c 6.6 H (4.0-6.0) % 08/04/17 Range/Units 11:58 POC Glucose (mg/dL) 154 H (75-99) mg/dL Hemoglobin A1c (4.0-6.0) % Microbiology - Last 24 Hours (Table) 08/03/17 11:25 Blood Culture - Preliminary Blood No Growth after 24 hours Assessment and Plan Assessment: -acuteCOPD exacerbationwith acute tracheobronchitis -acute left-sided Pneumothorax 50% with chest tube/thoravent -sleep apnea with CPAP -hx pulmonary embolus -hyperlipidemia -possible Diabetes mellitus, hemoglobin A1c 6.6 plan: Continue on current medication regime ,monitoring and symptomatic treatment. Maintain nebulized bronchodilators, antibiotics, Phenergan with codeine.follow closely with pulmonary.Levemir insulin, pre-meal insulin added to med regime with close monitoring of Accu-Cheks The impression and plan of care has been dictated as directed. : I performed a history and examination of this patient, discussed the same with the dictator. I agree with the dictator's note ,documented as a scribe. Any additional findings or plans will be noted.
[2017-08-04] MEDS: PANTOPRAZOLE 40 MG/10 ML VIAL IVP SCH (18:04)
[2017-08-04] MEDS: MONTELUKAST 10 MG TAB PO SCH (20:19)
[2017-08-04] MEDS: ATORVASTATIN 10 MG TAB PO SCH (20:19)
[2017-08-04] MEDS: SYMBICORT 160-4.5 MCG INHALER INHALATION SCH (20:21)
[2017-08-04 21:07] LABS: Glucose,Whole Blood 199 mg/dL (75-99)
[2017-08-04] MEDS: INSULIN DETEMIR 100 UNIT/ML 10 ML VIAL SQ SCH (21:28)
[2017-08-05] MEDS: MORPHINE ORAL SOLN 10 MG/5 ML CUP PO PRN ×4 (04:22→23:00)
[2017-08-05] MEDS: HYDROcodone/APAP 5-325MG 1 EACH TAB PO PRN ×3 (04:23→19:17)
[2017-08-05] MEDS: methylPREDNISolone SOD SUCCI 40 MG/ML 1 ML VIAL IV SCH ×3 (06:24→17:55)
[2017-08-05] MEDS: PROMETHAZ-COD 6.25-10 MG/5 ML 5 ML CUP PO SCH ×3 (06:24→16:57)
[2017-08-05] MEDS: SYMBICORT 160-4.5 MCG INHALER INHALATION SCH ×2 (07:25→19:53)
[2017-08-05] MEDS: IPRATROPIUM-ALBUTEROL 3 ML NEB INHALATION SCH ×4 (07:25→19:53)
[2017-08-05 07:32] LABS: Glucose,Whole Blood 163 mg/dL (75-99)
[2017-08-05] MEDS: INSULIN ASPART 100 UNIT/ML 1 ML 10 ML VIAL SQ SCH ×7 (07:57→21:18)
[2017-08-05] MEDS: CITALOPRAM HYDROBROMIDE 20 MG TAB PO SCH (07:59)
[2017-08-05] MEDS: LEVOFLOXACIN 750 MG TAB PO SCH (07:59)
[2017-08-05] MEDS: HEPARIN SODIUM,PORCINE 5,000 UNIT/ML 1 ML VIAL SQ SCH ×2 (08:00→16:41)
[2017-08-05] MEDS: PANTOPRAZOLE 40 MG/10 ML VIAL IVP SCH (08:00)
[2017-08-05] MEDS: FAMOTIDINE 20 MG TAB PO SCH (08:00)
[2017-08-05] MEDS: NYSTATIN 100,000 UNIT/ML SUSP 500,000 UNIT/5 ML CUP PO SCH ×4 (08:00→21:21)
--- NOTE | 2017-08-05 10:08 | XR ---
EXAMINATION TYPE: XR chest 2V DATE OF EXAM: 08/05/2017 COMPARISON: Prior chest x-ray 08/04/2017 HISTORY: Chest tube TECHNIQUE: Frontal and lateral views of the chest are obtained. FINDINGS: Left-sided chest tube is again noted basilar atelectatic changes again seen. No evident pn eumothorax. Interval opacity of the right lung base appears right hemidiaphragm. Cardiac mediastinal silhouette, pulmonary vascularity and baldemar are stable. IMPRESSION: No residual pneumothorax is evident. Interval right basilar atelectasis, correlate to ex clude pneumonia, effusion.
[2017-08-05 10:51] LABS: Anisocytosis Slight; Basophils % (A) 0 %; Eosinophils % (A) 0 %; HCT 45.2 % (39.0-53.0); HGB 14.1 gm/dL (13.0-17.5); Hypochromasia Slight; Lymphocytes # (A) 0.6 k/uL (1.0-4.8); Lymphocytes % (A) 4 %; MCH 26.3 pg (25.0-35.0); MCHC 31.2 g/dL (31.0-37.0); MCV 84.2 fL (80.0-100.0); Mean Platelet Volume 6.7; Monocytes # (A) 0.4 k/uL (0-1.0); Monocytes % (A) 3 %; Neutrophils # (A) 13.7 k/uL (1.3-7.7); Neutrophils % (A) 93 %; Platelet Count 202 k/uL (150-450); RBC 5.37 m/uL (4.30-5.90); RDW 18.7 % (11.5-15.5); WBC 14.8 k/uL (3.8-10.6)
[2017-08-05 11:32] LABS: Anion Gap 13 mmol/L; Blood Urea Nitrogen 29 mg/dL (9-20); Calcium 9.3 mg/dL (8.4-10.2); Carbon Dioxide 26 mmol/L (22-30); Chloride 100 mmol/L (98-107); Glucose 166 mg/dL (74-99); Potassium 4.5 mmol/L (3.5-5.1); Sodium 139 mmol/L (137-145)
[2017-08-05 12:42] LABS: Glucose,Whole Blood 194 mg/dL (75-99)
--- NOTE | 2017-08-05 15:24 | P.PN ---
Subjective Progress Note Date: 08/05/17 Principal diagnosis: Acute secondary left-sided pneumothorax, 50% left pneumothorax, status post insertion of Thoravent. Acute exacerbation of COPD, and acute tracheobronchitis. A pleasant 56-year-old male patient with known history of COPD, severe tracheal bronchomalacia, previous history of pulmonary embolism maintained on Xarelto, indigent 2 history of severe obstructive sleep apnea with an AHI of 68.4 and the patient was treated with CPAP which was recently dropped to a pressure of 10 cm of water. The patient has a preserved LV function with an ejection fraction of 55-60% without any valvular abnormalities. His other comorbid conditions include tic douloureux, hyperlipidemia, and obesity. He is an ex- smoker. This patient has been having symptoms of acute COPD exacerbation tracheal bronchitis which was being managed on outpatient basis by Dr. Gonsalez and Dr. Michelle Darling. The patient has received a combination of bronchodilators, and steroids without much of an improvement. Today was seen again in the office and he was actively coughing and bronchospastic. He was also having pain across his left chest. He came in to the burst department and the chest x-ray showed a pneumothorax on the left. Note that the patient has bullous emphysema and the findings were not absolutely clear to me. I proceeded with a CAT scan of the chest that showed no evidence of any pulmonary embolism. There was a 50 % pneumothorax on the left along with some bullous emphysematous changes in the lung apices bilaterally. At that point, I inserted a Thoravent in the emergency department on the left with successful expansion of the left lung. The patient remained hemodynamically stable throughout the procedure. Pulse ox improved and he came up to 95-96% on 2 L of oxygen by nasal cannula following the procedure. The patient has maintained on Spiriva on outpatient basis regarding his COPD. He is an ex-smoker. He has been doing well and his pulmonary embolism dates back to 2016. No swelling in lower extremities. No other complaint otherwise for now. No altered mental status. On 08/04/2017 patient seen in follow-up. He states his shortness of breath is better, but he has a persistent barky, nonproductive cough. Today's chest x- ray was reviewed by Dr. Guadarrama, and showed Thoravent in place. Small left apical pneumothorax persists, some basilar atelectatic changes are present. No evident pleural effusion. Lung sounds are positive for scattered diffuse rhonchi throughout the lung an. Thoravent is in place, and connected to Pleur-evac, there is minimal air leak noted, on today's exam. We'll continue with current treatment, and we will add Phenergan with codeine for persistent coughing. On 07/09/2017 patient is seen and examined. He states his breathing continues to improve, although not back to his baseline. Lung sounds are less congested, less rhonchorous on today's exam. Only a few scattered wheezes, still having the persistent coughing, will stop the flutter valve. The promethazine improved the persistent coughing somewhat. Today's chest x-ray was reviewed by Dr. Guadarrama and showed no residual pneumothorax. Interval right basilar atelectasis. Patient's thoravent remains in place, with no air leak. Today we will disconnect the Pleur-evac, and discontinue to wall suction. We'll repeat the chest x-ray in the morning. Continue with medical treatments, nebulized treatments, steroids, empiric antibiotics, Singulair, promethazine with codeine. Objective - Vital Signs Vital signs: Vital Signs Temp 97.2 F L 08/05/17 06:42 Pulse 89 08/05/17 11:03 Resp 22 08/05/17 06:42 BP 135/73 08/05/17 06:42 Pulse Ox 95 08/05/17 06:42 Intake & Output 08/04/17 08/05/17 08/05/17 18:59 06:59 18:59 Intake Total 520 100 480 Output Total 1000 550 Balance -480 100 -70 Intake: Oral 520 100 480 Output: Urine 1000 550 Other: Voiding Method Urinal Urinal # Voids 1 1 # Bowel Movements 1 0 - Exam General Appearance no diaphoresis, patient was having respiratory distress, speech interrupted because of frequent cough dyspnea, no pallor, not cachectic , well nourished, appears well, obesity HEENT no pursed lip breathing, no jugular venous distention, no mucous membrane cyanosis, no perioral cyanosis, mallampati classification: class 1, Mallampati Classification: Class 4 Chest shows a marked diminished breath sound bilaterally along with a few scattered expiratory wheezes and prolongation of expiratory phase of breathing. Some residual rhonchi bilaterally, but this is improved from yesterday's exam. Left upper chest thoravent connected to pleuravac and wall suction Heart no right ventricular heave, no distant heart sounds, no s3 gallop, (normal ) jugular vein: jugular venous distention: by 0cm, (normal) jugular vein GI bowel sounds: hyperactive (borborygmi), bowel sounds: diminished or absent Extremities no cyanosis, no clubbing, no edema Neurologic no decreased mental status, no somnolence, no confusion Assisstive Devices: ambulates with no assitive devices Gait and Mobility: gait WNL, full weight bearing Skin General Appearance normal, (normal) normal except as noted - Labs CBC & Chem 7: 08/05/17 09:20 08/05/17 09:20 Labs: Abnormal Lab Results - Last 24 Hours (Table) 08/03/17 08/04/17 08/04/17 Range/Units 11:25 17:19 20:56 WBC (3.8-10.6) k/uL RDW (11.5-15.5) % Neutrophils # (1.3-7.7) k/uL Lymphocytes # (1.0-4.8) k/uL BUN (9-20) mg/dL Glucose (74-99) mg/dL POC Glucose (mg/dL) 197 H 199 H (75-99) mg/dL Hemoglobin A1c 6.6 H (4.0-6.0) % 08/05/17 08/05/17 08/05/17 Range/Units 07:25 09:20 09:20 WBC 14.8 H (3.8-10.6) k/uL RDW 18.7 H (11.5-15.5) % Neutrophils # 13.7 H (1.3-7.7) k/uL Lymphocytes # 0.6 L (1.0-4.8) k/uL BUN 29 H (9-20) mg/dL Glucose 166 H (74-99) mg/dL POC Glucose (mg/dL) 163 H (75-99) mg/dL Hemoglobin A1c (4.0-6.0) % 08/05/17 Range/Units 12:34 WBC (3.8-10.6) k/uL RDW (11.5-15.5) % Neutrophils # (1.3-7.7) k/uL Lymphocytes # (1.0-4.8) k/uL BUN (9-20) mg/dL Glucose (74-99) mg/dL POC Glucose (mg/dL) 194 H (75-99) mg/dL Hemoglobin A1c (4.0-6.0) % Microbiology - Last 24 Hours (Table) 08/03/17 11:25 Blood Culture - Preliminary Blood No Growth after 24 hours Assessment and Plan Plan: Assessment: 1 acute secondary left-sided pneumothorax, 50% of the left hemithorax, status post insertion of Thora vent. The patient has positive air leak. There is adequate expansion of the left lung following the procedure. 2 acute shortness of breath secondary to a left-sided pneumothorax and COPD exacerbation 3 acute tracheobronchitis 4 acute COPD exacerbation with secondary shortness of breath cough bronchospasm wheezing 5 obstructive sleep apnea with an AHI of 64 currently on CPAP pressure of 10 cm of water 6 previous history of pulmonary embolism dates back in 2016 7 restless leg syndrome 8 hyperlipidemia 9 tic douloureux Plan: Today's chest x-ray was reviewed by Dr. Guadarrama, and there is no residual pneumothorax noted. The pleuravac and wall suction were discontinued. We'll obtain repeat chest x-ray in the morning, if the left lung remains expanded, may consider capping the Thora vent. Patient reports improvement with dyspnea, chest congestion and wheezing. We'll continue with current treatment for his exacerbation of COPD. Continue current antibiotic coverage, continue nebulized treatments, bronchodilators. Increase activity as tolerated. We'll continue to follow. I performed a history & physical examination of the patient and discussed their management with my nurse practitioner, Nicole Duarte. I reviewed the nurse practitioner's note and agree with the documented findings and plan of care. Lung sounds are less congested, less wheezy on today's exam.. The findings and the impression was discussed with the patient. I attest to the documentation by the nurse practitioner. Time with Patient: Less than 30
--- NOTE | 2017-08-05 15:53 | P.PN ---
Subjective Progress Note Date: 08/05/17 progress note being dictated for Dr. Chase. interval history:maintained on nebulized bronchodilators, antibiotics, steroids.Breathing improving, nonproductive cough.chest x-ray reporting similar findings, minimal subcu emphysema, minimal apical pneumothorax.afebrile, preliminary blood cultures negative at 24 hours. CPAP at bedside.blood sugars elevated. 08/05/2017 maintained on nebulized bronchodilators, antibiotics, steroids. breathing/coughing slowly improving. Chest x-ray reporting no residual pneumothorax, interval right basilar atelectasis, possible pneumonia/effusion. Pleural VAC present, wall suction discontinued today. Blood sugars controlled. Objective - Vital Signs Vital signs: Vital Signs Temp 97.9 F 08/05/17 15:00 Pulse 99 08/05/17 15:00 Resp 20 08/05/17 15:00 BP 125/72 08/05/17 15:00 Pulse Ox 90 L 08/05/17 15:00 Intake & Output 08/04/17 08/05/17 08/05/17 18:59 06:59 18:59 Intake Total 520 100 480 Output Total 1000 550 Balance -480 100 -70 Intake: Oral 520 100 480 Output: Urine 1000 550 Other: Voiding Method Urinal Urinal # Voids 1 1 # Bowel Movements 1 0 - Exam PHYSICAL EXAM: VITAL SIGNS: [as above] GENERAL: sitting up in bed, increased respiratory effort HEENT: Conjunctivae normal. eyes normal. NECK: No JVD. No thyroid enlargement. No LNs CARDIOVASCULAR: S1, S2 muffled. No murmur RESPIRATION: Breath sounds diminished in the bases. occasional scattered rhonchi , no crackles.expiratory wheezing.left chest tube/Pleurax ABDOMEN: Soft, nontender . No guarding. no masses palpable.Bowel sounds heard. LEGS: No edema. no swelling PSYCHIATRY: Alert and oriented -3, mood and affect normal. NERVOUS SYSTEM: Cranial N 2-12 grossly normal. Moves all 4 limbs. Diffuse weakness No focal deficits. Skin: no ulcer no rash Joints: No active swelling. No inflammation. Lymphatic system. No LN neck axilla or groin. - Labs CBC & Chem 7: 08/05/17 09:20 08/05/17 09:20 Labs: Abnormal Lab Results - Last 24 Hours (Table) 08/03/17 08/04/17 08/04/17 Range/Units 11:25 17:19 20:56 WBC (3.8-10.6) k/uL RDW (11.5-15.5) % Neutrophils # (1.3-7.7) k/uL Lymphocytes # (1.0-4.8) k/uL BUN (9-20) mg/dL Glucose (74-99) mg/dL POC Glucose (mg/dL) 197 H 199 H (75-99) mg/dL Hemoglobin A1c 6.6 H (4.0-6.0) % 08/05/17 08/05/17 08/05/17 Range/Units 07:25 09:20 09:20 WBC 14.8 H (3.8-10.6) k/uL RDW 18.7 H (11.5-15.5) % Neutrophils # 13.7 H (1.3-7.7) k/uL Lymphocytes # 0.6 L (1.0-4.8) k/uL BUN 29 H (9-20) mg/dL Glucose 166 H (74-99) mg/dL POC Glucose (mg/dL) 163 H (75-99) mg/dL Hemoglobin A1c (4.0-6.0) % 08/05/17 Range/Units 12:34 WBC (3.8-10.6) k/uL RDW (11.5-15.5) % Neutrophils # (1.3-7.7) k/uL Lymphocytes # (1.0-4.8) k/uL BUN (9-20) mg/dL Glucose (74-99) mg/dL POC Glucose (mg/dL) 194 H (75-99) mg/dL Hemoglobin A1c (4.0-6.0) % Microbiology - Last 24 Hours (Table) 08/03/17 11:25 Blood Culture - Preliminary Blood No Growth after 48 hours Assessment and Plan Assessment: -acuteCOPD exacerbationwith acute tracheobronchitis -acute left-sided Pneumothorax 50% with chest tube/thoravent -sleep apnea with CPAP -hx pulmonary embolus -hyperlipidemia -possible Diabetes mellitus, hemoglobin A1c 6.6 plan: Continue on current medication regime ,monitoring and symptomatic treatment. Maintain nebulized bronchodilators, antibiotics, Phenergan with codeine.follow closely with pulmonary.close monitoring of Accu-Cheks The impression and plan of care has been dictated as directed. : I performed a history and examination of this patient, discussed the same with the dictator. I agree with the dictator's note ,documented as a scribe. Any additional findings or plans will be noted.
[2017-08-05 17:38] LABS: Glucose,Whole Blood 187 mg/dL (75-99)
[2017-08-05 20:32] LABS: Glucose,Whole Blood 205 mg/dL (75-99)
[2017-08-05] MEDS: ATORVASTATIN 10 MG TAB PO SCH (20:36)
[2017-08-05] MEDS: MONTELUKAST 10 MG TAB PO SCH (20:36)
[2017-08-05] MEDS: INSULIN DETEMIR 100 UNIT/ML 10 ML VIAL SQ SCH (21:18)
[2017-08-06] MEDS: PROMETHAZ-COD 6.25-10 MG/5 ML 5 ML CUP PO SCH ×4 (00:08→17:25)
[2017-08-06] MEDS: methylPREDNISolone SOD SUCCI 40 MG/ML 1 ML VIAL IV SCH ×5 (00:09→23:16)
[2017-08-06] MEDS: HEPARIN SODIUM,PORCINE 5,000 UNIT/ML 1 ML VIAL SQ SCH ×4 (00:09→23:16)
[2017-08-06] MEDS: MORPHINE ORAL SOLN 10 MG/5 ML CUP PO PRN ×4 (04:58→23:15)
--- NOTE | 2017-08-06 07:00 | XR ---
EXAMINATION TYPE: XR chest 2V DATE OF EXAM: 08/06/2017 HISTORY: follow up left pneumothorax. REFERENCE: Previous study dated 08/05/2017. FINDINGS: A Heimlich valve remains in place on the left. No definite pneumothorax is seen. There is apparent elevation right hemidiaphragm. Platelike atelectasis in the left midlung has resolv ed. There continues to be atelectatic change or consolidation at the right lung base. I suspect a sma ll right effusion. IMPRESSION: NO DEFINITE RESIDUAL PNEUMOTHORAX.
[2017-08-06 07:50] LABS: Glucose,Whole Blood 148 mg/dL (75-99)
[2017-08-06] MEDS: SYMBICORT 160-4.5 MCG INHALER INHALATION SCH ×2 (07:51→19:34)
[2017-08-06] MEDS: IPRATROPIUM-ALBUTEROL 3 ML NEB INHALATION SCH ×4 (07:51→19:34)
[2017-08-06] MEDS: HYDROcodone/APAP 5-325MG 1 EACH TAB PO PRN ×3 (08:22→20:13)
[2017-08-06] MEDS: PANTOPRAZOLE 40 MG TABLET PO SCH (08:23)
[2017-08-06] MEDS: CITALOPRAM HYDROBROMIDE 20 MG TAB PO SCH (08:23)
[2017-08-06] MEDS: LEVOFLOXACIN 750 MG TAB PO SCH (08:23)
[2017-08-06] MEDS: INSULIN ASPART 100 UNIT/ML 1 ML 10 ML VIAL SQ SCH ×7 (08:23→21:33)
[2017-08-06] MEDS: NYSTATIN 100,000 UNIT/ML SUSP 500,000 UNIT/5 ML CUP PO SCH ×4 (08:23→23:16)
[2017-08-06 08:56] LABS: Anisocytosis Slight; Basophils % (A) 0 %; Eosinophils % (A) 0 %; HCT 44.5 % (39.0-53.0); HGB 14.6 gm/dL (13.0-17.5); Lymphocytes # (A) 1.2 k/uL (1.0-4.8); Lymphocytes % (A) 8 %; MCH 27.1 pg (25.0-35.0); MCHC 32.8 g/dL (31.0-37.0); MCV 82.6 fL (80.0-100.0); Mean Platelet Volume 6.7; Microcytosis Slight; Monocytes # (A) 0.5 k/uL (0-1.0); Monocytes % (A) 3 %; Neutrophils # (A) 12.8 k/uL (1.3-7.7); Neutrophils % (A) 88 %; Platelet Count 200 k/uL (150-450); RBC 5.39 m/uL (4.30-5.90); RDW 18.5 % (11.5-15.5); WBC 14.6 k/uL (3.8-10.6)
[2017-08-06 09:02] LABS: Anion Gap 12 mmol/L; Blood Urea Nitrogen 26 mg/dL (9-20); Calcium 9.3 mg/dL (8.4-10.2); Carbon Dioxide 28 mmol/L (22-30); Chloride 98 mmol/L (98-107); Glucose 167 mg/dL (74-99); Potassium 4.9 mmol/L (3.5-5.1); Sodium 138 mmol/L (137-145)
[2017-08-06] MEDS ORDERED: DOCUSATE 100 MG CAP PO PRN (11:45)
[2017-08-06 12:01] LABS: Glucose,Whole Blood 285 mg/dL (75-99)
--- NOTE | 2017-08-06 13:23 | P.PN ---
Subjective Progress Note Date: 08/06/17 A pleasant 56-year-old male patient with known history of COPD, severe tracheal bronchomalacia, previous history of pulmonary embolism maintained on Xarelto, indigent 2 history of severe obstructive sleep apnea with an AHI of 68.4 and the patient was treated with CPAP which was recently dropped to a pressure of 10 cm of water. The patient has a preserved LV function with an ejection fraction of 55-60% without any valvular abnormalities. His other comorbid conditions include tic douloureux, hyperlipidemia, and obesity. He is an ex- smoker. This patient has been having symptoms of acute COPD exacerbation tracheal bronchitis which was being managed on outpatient basis by Dr. Gonsalez and Dr. Michelle Darling. The patient has received a combination of bronchodilators, and steroids without much of an improvement. Today was seen again in the office and he was actively coughing and bronchospastic. He was also having pain across his left chest. He came in to the burst department and the chest x-ray showed a pneumothorax on the left. Note that the patient has bullous emphysema and the findings were not absolutely clear to me. I proceeded with a CAT scan of the chest that showed no evidence of any pulmonary embolism. There was a 50 % pneumothorax on the left along with some bullous emphysematous changes in the lung apices bilaterally. At that point, I inserted a Thoravent in the emergency department on the left with successful expansion of the left lung. The patient remained hemodynamically stable throughout the procedure. Pulse ox improved and he came up to 95-96% on 2 L of oxygen by nasal cannula following the procedure. The patient has maintained on Spiriva on outpatient basis regarding his COPD. He is an ex-smoker. He has been doing well and his pulmonary embolism dates back to 2016. No swelling in lower extremities. No other complaint otherwise for now. No altered mental status. On 08/04/2017 patient seen in follow-up. He states his shortness of breath is better, but he has a persistent barky, nonproductive cough. Today's chest x- ray was reviewed by Dr. Guadarrama, and showed Thoravent in place. Small left apical pneumothorax persists, some basilar atelectatic changes are present. No evident pleural effusion. Lung sounds are positive for scattered diffuse rhonchi throughout the lung an. Thoravent is in place, and connected to Pleur-evac, there is minimal air leak noted, on today's exam. We'll continue with current treatment, and we will add Phenergan with codeine for persistent coughing. On 07/09/2017 patient is seen and examined. He states his breathing continues to improve, although not back to his baseline. Lung sounds are less congested, less rhonchorous on today's exam. Only a few scattered wheezes, still having the persistent coughing, will stop the flutter valve. The promethazine improved the persistent coughing somewhat. Today's chest x-ray was reviewed by Dr. Guadarrama and showed no residual pneumothorax. Interval right basilar atelectasis. Patient's thoravent remains in place, with no air leak. Today we will disconnect the Pleur-evac, and discontinue to wall suction. We'll repeat the chest x-ray in the morning. Continue with medical treatments, nebulized treatments, steroids, empiric antibiotics, Singulair, promethazine with codeine. On 08/06/2017, I'm seeing this patient for a follow-up. The patient looking well. Cough has improved in the order of 50%. Less progress spastic and wheezy compared to yesterday. The chest x-ray from today is fully expanded and there is no evidence of any pneumothorax. The patient has a Thoravent in place and the catheter has been For now. No significant leukocytosis. Blood sugars slightly elevated as the patient is receiving systemic steroids. He is also on bronchodilators [id number]. The chest x-ray from today shows a limited atelectatic changes in the right lung base. Right hemidiaphragm is also elevated compared to the left. No altered mentation. No chest pain. No other significant events overnight. Objective - Vital Signs Vital signs: Vital Signs Temp 97.4 F L 08/06/17 07:00 Pulse 89 08/06/17 11:35 Resp 18 08/06/17 07:00 BP 149/89 08/06/17 07:00 Pulse Ox 91 L 08/06/17 07:00 Intake & Output 08/05/17 08/06/17 08/06/17 18:59 06:59 18:59 Intake Total 480 Output Total 1350 Balance -870 Intake: Oral 480 Output: Urine 1350 Other: # Voids 1 2 # Bowel Movements 0 - Exam General Appearance no diaphoresis, patient was having respiratory distress, speech interrupted because of frequent cough dyspnea, no pallor, not cachectic , well nourished, appears well, obesity HEENT no pursed lip breathing, no jugular venous distention, no mucous membrane cyanosis, no perioral cyanosis, mallampati classification: class 1, Mallampati Classification: Class 4 Chest shows a marked diminished breath sound bilaterally along with a few scattered expiratory wheezes and prolongation of expiratory phase of breathing. Some residual rhonchi bilaterally, but this is improved from yesterday's exam. Left upper chest thoravent is currently capped Heart no right ventricular heave, no distant heart sounds, no s3 gallop, (normal ) jugular vein: jugular venous distention: by 0cm, (normal) jugular vein GI bowel sounds: hyperactive (borborygmi), bowel sounds: diminished or absent Extremities no cyanosis, no clubbing, no edema Neurologic no decreased mental status, no somnolence, no confusion Assisstive Devices: ambulates with no assitive devices Gait and Mobility: gait WNL, full weight bearing Skin General Appearance normal, (normal) normal except as noted - Labs CBC & Chem 7: 08/06/17 08:08 08/06/17 08:08 Labs: Abnormal Lab Results - Last 24 Hours (Table) 08/05/17 08/05/17 08/06/17 Range/Units 17:36 20:30 07:41 WBC (3.8-10.6) k/uL RDW (11.5-15.5) % Neutrophils # (1.3-7.7) k/uL BUN (9-20) mg/dL Glucose (74-99) mg/dL POC Glucose (mg/dL) 187 H 205 H 148 H (75-99) mg/dL 08/06/17 08/06/17 08/06/17 Range/Units 08:08 08:08 11:59 WBC 14.6 H (3.8-10.6) k/uL RDW 18.5 H (11.5-15.5) % Neutrophils # 12.8 H (1.3-7.7) k/uL BUN 26 H (9-20) mg/dL Glucose 167 H (74-99) mg/dL POC Glucose (mg/dL) 285 H (75-99) mg/dL Microbiology - Last 24 Hours (Table) 08/03/17 11:25 Blood Culture - Preliminary Blood No Growth after 48 hours Assessment and Plan Plan: Assessment 1 acute secondary left-sided pneumothorax, 50% of the left hemithorax, status post insertion of Thora vent. The patient established a full expansion of the left lung and currently the patient does not have any pneumothorax and the catheters. 2 acute shortness of breath secondary to a left-sided pneumothorax and COPD exacerbation, improved as the patient is being treated for COPD exacerbation a left-sided pneumothorax has been treated 3 acute tracheobronchitis, currently on antibiotics and steroids and bronchodilators 4 acute COPD exacerbation with secondary shortness of breath cough bronchospasm wheezing 5 obstructive sleep apnea with an AHI of 64 currently on CPAP pressure of 10 cm of water 6 previous history of pulmonary embolism dates back in 2016 7 restless leg syndrome 8 hyperlipidemia 9 tic douloureux Plan Keep the catheter For now. Repeat chest x-ray in the morning. Continue bronchodilators and steroids for another 24 hours. I'm inclined to keep the catheter in as long as the patient is still cough and. The catheter be taken off the ventilator stage probably tomorrow day after. No other significant events otherwise for now. He is improving. He is ambulating. His cough has subsided. Is on oral antibiotics. We'll continue to follow.
--- NOTE | 2017-08-06 16:41 | PN ---
PROGRESS NOTE DATE OF SERVICE: 08/06/2017. INTERVAL HISTORY: This 56-year-old gentleman who was admitted with COPD acute exacerbation, tracheobronchitis also had left sided pneumothorax 50%. The pneumothorax is completely improved at this time. No chest pain. No palpitation. No fever. Thoravent in situ. EXAM: Alert and oriented times three. Pulse 98, blood pressure 127/63, respiratory rate 16, temperature 97.2, pulse ox 94% on 6 L. HEENT is conjunctivae normal. Neck: No jugular venous distention. Cardiovascular: S1, S2. Respiratory: Breath sounds diminished in the bases. Bilateral scattered rhonchi and crackles. Expiratory wheezing and crackles. Abdomen is soft, nontender. Legs are no edema, no swelling. LABS: WBC 14.6. Accu-Cheks 285. ASSESSMENT: 1. Chronic obstructive pulmonary disease acute exacerbation with acute purulent tracheobronchitis. 2. Acute left side pneumonia 50% status post chest tube Thoravent. 3. Sleep apnea, on CPAP. 4. History of pulmonary embolus. 5. Hyperlipidemia. 6. 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 RECOMMENDATION AND DISCUSSION: This 56-year-old gentleman who presented with multiple complex medical issues. We will monitor the patient closely. Continue the current medications, continue symptomatic treatment. Continue the bronchodilators. Continue empiric antibiotics. Otherwise I would also recommend continue with DVT prophylaxis. Closely follow with Dr. Guadarrama and Cardiothoracic Surgery. Guarded prognosis. Further recommendations to follow. MMODL / IJN: [id number] /
[2017-08-06 16:53] LABS: Glucose,Whole Blood 193 mg/dL (75-99)
[2017-08-06 21:05] LABS: Glucose,Whole Blood 211 mg/dL (75-99)
[2017-08-06] MEDS: INSULIN DETEMIR 100 UNIT/ML 10 ML VIAL SQ SCH (21:33)
[2017-08-06] MEDS: ATORVASTATIN 10 MG TAB PO SCH (21:33)
[2017-08-06] MEDS: MONTELUKAST 10 MG TAB PO SCH (21:33)
[2017-08-07] MEDS: PROMETHAZ-COD 6.25-10 MG/5 ML 5 ML CUP PO SCH ×5 (00:05→23:16)
--- NOTE | 2017-08-07 06:33 | XR ---
EXAMINATION TYPE: XR chest 2V DATE OF EXAM: 08/07/2017 HISTORY: follow up left pneumothorax. REFERENCE: Previous study dated 08/06/2017. FINDINGS: A Heimlich valve remains in place on the left. I do not see a residual pneumothorax. There is apparent elevation right hemidiaphragm. The lungs appear clear. Pleural spaces are clear. IMPRESSION: 1. NO EVIDENCE OF RESIDUAL PNEUMOTHORAX. 2. CONTINUED APPARENT ELEVATION OF THE RIGHT HEMIDIAPHRAGM. THIS MAY BE SECONDARY TO PARALYSIS, CONSO LIDATION OR SUBPULMONIC FLUID.
[2017-08-07] MEDS: methylPREDNISolone SOD SUCCI 40 MG/ML 1 ML VIAL IV SCH ×4 (06:36→23:16)
[2017-08-07 07:00] LABS: Glucose,Whole Blood 145 mg/dL (75-99)
[2017-08-07] MEDS: IPRATROPIUM-ALBUTEROL 3 ML NEB INHALATION SCH ×4 (07:30→19:42)
[2017-08-07] MEDS: SYMBICORT 160-4.5 MCG INHALER INHALATION SCH ×2 (07:30→19:42)
[2017-08-07] MEDS: LEVOFLOXACIN 750 MG TAB PO SCH (08:08)
[2017-08-07] MEDS: CITALOPRAM HYDROBROMIDE 20 MG TAB PO SCH (08:08)
[2017-08-07] MEDS: NYSTATIN 100,000 UNIT/ML SUSP 500,000 UNIT/5 ML CUP PO SCH ×4 (08:09→23:19)
[2017-08-07] MEDS: HEPARIN SODIUM,PORCINE 5,000 UNIT/ML 1 ML VIAL SQ SCH ×3 (08:09→23:16)
[2017-08-07] MEDS: PANTOPRAZOLE 40 MG TABLET PO SCH (08:09)
[2017-08-07] MEDS: INSULIN ASPART 100 UNIT/ML 1 ML 10 ML VIAL SQ SCH ×7 (08:14→20:41)
[2017-08-07] MEDS: HYDROcodone/APAP 5-325MG 1 EACH TAB PO PRN ×2 (08:14→20:41)
[2017-08-07 08:19] LABS: Anisocytosis Slight; Basophils % (A) 0 %; Eosinophils % (A) 0 %; HCT 43.8 % (39.0-53.0); HGB 13.8 gm/dL (13.0-17.5); Hypochromasia Slight; Lymphocytes # (A) 0.9 k/uL (1.0-4.8); Lymphocytes % (A) 7 %; MCH 25.9 pg (25.0-35.0); MCHC 31.4 g/dL (31.0-37.0); MCV 82.4 fL (80.0-100.0); Microcytosis Slight; Monocytes # (A) 0.6 k/uL (0-1.0); Monocytes % (A) 4 %; Neutrophils # (A) 11.6 k/uL (1.3-7.7); Neutrophils % (A) 89 %; Platelet Count 200 k/uL (150-450); RBC 5.32 m/uL (4.30-5.90); RDW 18.8 % (11.5-15.5); WBC 13.1 k/uL (3.8-10.6)
[2017-08-07 08:23] LABS: Anion Gap 9 mmol/L; Blood Urea Nitrogen 24 mg/dL (9-20); Calcium 9.2 mg/dL (8.4-10.2); Carbon Dioxide 31 mmol/L (22-30); Chloride 97 mmol/L (98-107); Glucose 142 mg/dL (74-99); Potassium 4.7 mmol/L (3.5-5.1); Sodium 137 mmol/L (137-145)
[2017-08-07 12:15] LABS: Glucose,Whole Blood 201 mg/dL (75-99)
[2017-08-07] MEDS: MORPHINE ORAL SOLN 10 MG/5 ML CUP PO PRN (12:26)
--- NOTE | 2017-08-07 13:31 | P.PN ---
Subjective Progress Note Date: 08/07/17 A pleasant 56-year-old male patient with known history of COPD, severe tracheal bronchomalacia, previous history of pulmonary embolism maintained on Xarelto, indigent 2 history of severe obstructive sleep apnea with an AHI of 68.4 and the patient was treated with CPAP which was recently dropped to a pressure of 10 cm of water. The patient has a preserved LV function with an ejection fraction of 55-60% without any valvular abnormalities. His other comorbid conditions include tic douloureux, hyperlipidemia, and obesity. He is an ex- smoker. This patient has been having symptoms of acute COPD exacerbation tracheal bronchitis which was being managed on outpatient basis by Dr. Gonsalez and Dr. Michelle Darling. The patient has received a combination of bronchodilators, and steroids without much of an improvement. Today was seen again in the office and he was actively coughing and bronchospastic. He was also having pain across his left chest. He came in to the burst department and the chest x-ray showed a pneumothorax on the left. Note that the patient has bullous emphysema and the findings were not absolutely clear to me. I proceeded with a CAT scan of the chest that showed no evidence of any pulmonary embolism. There was a 50 % pneumothorax on the left along with some bullous emphysematous changes in the lung apices bilaterally. At that point, I inserted a Thoravent in the emergency department on the left with successful expansion of the left lung. The patient remained hemodynamically stable throughout the procedure. Pulse ox improved and he came up to 95-96% on 2 L of oxygen by nasal cannula following the procedure. The patient has maintained on Spiriva on outpatient basis regarding his COPD. He is an ex-smoker. He has been doing well and his pulmonary embolism dates back to 2016. No swelling in lower extremities. No other complaint otherwise for now. No altered mental status. On 08/04/2017 patient seen in follow-up. He states his shortness of breath is better, but he has a persistent barky, nonproductive cough. Today's chest x- ray was reviewed by Dr. Guadarrama, and showed Thoravent in place. Small left apical pneumothorax persists, some basilar atelectatic changes are present. No evident pleural effusion. Lung sounds are positive for scattered diffuse rhonchi throughout the lung an. Thoravent is in place, and connected to Pleur-evac, there is minimal air leak noted, on today's exam. We'll continue with current treatment, and we will add Phenergan with codeine for persistent coughing. On 07/09/2017 patient is seen and examined. He states his breathing continues to improve, although not back to his baseline. Lung sounds are less congested, less rhonchorous on today's exam. Only a few scattered wheezes, still having the persistent coughing, will stop the flutter valve. The promethazine improved the persistent coughing somewhat. Today's chest x-ray was reviewed by Dr. Guadarrama and showed no residual pneumothorax. Interval right basilar atelectasis. Patient's thoravent remains in place, with no air leak. Today we will disconnect the Pleur-evac, and discontinue to wall suction. We'll repeat the chest x-ray in the morning. Continue with medical treatments, nebulized treatments, steroids, empiric antibiotics, Singulair, promethazine with codeine. On 08/06/2017, I'm seeing this patient for a follow-up. The patient looking well. Cough has improved in the order of 50%. Less progress spastic and wheezy compared to yesterday. The chest x-ray from today is fully expanded and there is no evidence of any pneumothorax. The patient has a Thoravent in place and the catheter has been For now. No significant leukocytosis. Blood sugars slightly elevated as the patient is receiving systemic steroids. He is also on bronchodilators [id number]. The chest x-ray from today shows a limited atelectatic changes in the right lung base. Right hemidiaphragm is also elevated compared to the left. No altered mentation. No chest pain. No other significant events overnight. On 1017, I'm seeing this patient for a follow-up. The chest x-ray remains fully expanded and the chest tube itself capped. I decided to keep the chest tube in for another 24 hours as the patient is still having some coughing spells and I'm worried that he may the collapses lung. This tube which is a smaller tube can be pulled out at anytime at a later stage. Clinically is improving. Ambulating. He has a congested cough and wheeze and this is related to his underlying COPD exacerbation. He is afebrile. His hemodynamics is stable. The sputum Gram stain and culture came back negative. The blood culture was also negative. Objective - Vital Signs Vital signs: Vital Signs Temp 96.2 F L 08/07/17 06:07 Pulse 77 08/07/17 11:19 Resp 16 08/07/17 09:14 BP 128/78 08/07/17 06:07 Pulse Ox 95 08/07/17 06:07 Intake & Output 08/06/17 08/07/17 08/07/17 18:59 06:59 18:59 Intake Total 350 Balance 350 Weight 122.47 kg Intake: Oral 350 Other: Voiding Method Urinal # Voids 3 1 - Exam General Appearance no diaphoresis, patient was having respiratory distress, speech interrupted because of frequent cough dyspnea, no pallor, not cachectic , well nourished, appears well, obesity HEENT no pursed lip breathing, no jugular venous distention, no mucous membrane cyanosis, no perioral cyanosis, mallampati classification: class 1, Mallampati Classification: Class 4 Chest shows a marked diminished breath sound bilaterally along with a few scattered expiratory wheezes and prolongation of expiratory phase of breathing. Some residual rhonchi bilaterally, but this is improved from yesterday's exam. Left upper chest thoravent is currently capped Heart no right ventricular heave, no distant heart sounds, no s3 gallop, (normal ) jugular vein: jugular venous distention: by 0cm, (normal) jugular vein GI bowel sounds: hyperactive (borborygmi), bowel sounds: diminished or absent Extremities no cyanosis, no clubbing, no edema Neurologic no decreased mental status, no somnolence, no confusion Assisstive Devices: ambulates with no assitive devices Gait and Mobility: gait WNL, full weight bearing Skin General Appearance normal, (normal) normal except as noted - Labs CBC & Chem 7: 08/07/17 07:34 08/07/17 07:34 Labs: Abnormal Lab Results - Last 24 Hours (Table) 08/06/17 08/06/17 08/07/17 Range/Units 16:51 21:02 06:56 WBC (3.8-10.6) k/uL RDW (11.5-15.5) % Neutrophils # (1.3-7.7) k/uL Lymphocytes # (1.0-4.8) k/uL Chloride (98-107) mmol/L Carbon Dioxide (22-30) mmol/L BUN (9-20) mg/dL Glucose (74-99) mg/dL POC Glucose (mg/dL) 193 H 211 H 145 H (75-99) mg/dL 08/07/17 08/07/17 08/07/17 Range/Units 07:34 07:34 12:11 WBC 13.1 H (3.8-10.6) k/uL RDW 18.8 H (11.5-15.5) % Neutrophils # 11.6 H (1.3-7.7) k/uL Lymphocytes # 0.9 L (1.0-4.8) k/uL Chloride 97 L (98-107) mmol/L Carbon Dioxide 31 H (22-30) mmol/L BUN 24 H (9-20) mg/dL Glucose 142 H (74-99) mg/dL POC Glucose (mg/dL) 201 H (75-99) mg/dL Microbiology - Last 24 Hours (Table) 08/06/17 08:00 Gram Stain - Preliminary Sputum Sputum Culture - Preliminary 08/03/17 11:25 Blood Culture - Preliminary Blood No Growth after 72 hours Assessment and Plan Plan: Assessment 1 acute secondary left-sided pneumothorax, 50% of the left hemithorax, status post insertion of Thora vent. The patient established a full expansion of the left lung and currently the patient does not have any pneumothorax and the catheters. On today's evaluation of the chest x-ray shows no evidence of any pneumothorax and the tube is also on a good location. 2 acute shortness of breath secondary to a left-sided pneumothorax and COPD exacerbation, improved as the patient is being treated for COPD exacerbation a left-sided pneumothorax has been treated 3 acute tracheobronchitis, currently on antibiotics and steroids and bronchodilators 4 acute COPD exacerbation with secondary shortness of breath cough bronchospasm wheezing 5 obstructive sleep apnea with an AHI of 64 currently on CPAP pressure of 10 cm of water 6 previous history of pulmonary embolism dates back in 2016 7 restless leg syndrome 8 hyperlipidemia 9 tic douloureux Plan Keep the catheter For now. I decided to keep the catheter and despite the fact that the patient is well expanded. I think that there is a risk of re-collapse the lung as long as the patient continues to have significant amount of cough. With decided to keep the tube in for another 24 hours and remove it tomorrow. Continue bronchodilators. Continue steroids. Continue antibiotics. He is improving clinically. He is on IV Solu Medrol 40 mg every 6 hours. He is on Levaquin. Continue bronchodilators. Possible discharge within the next 24-48 hours based on his overall progress.
--- NOTE | 2017-08-07 16:48 | P.PN ---
Subjective Progress Note Date: 08/07/17 Principal diagnosis: Acute COPD exacerbation interval history:maintained on nebulized bronchodilators, antibiotics, steroids.Breathing improving, nonproductive cough.chest x-ray reporting similar findings, minimal subcu emphysema, minimal apical pneumothorax.afebrile, preliminary blood cultures negative at 24 hours. CPAP at bedside.blood sugars elevated. 08/05/2017 maintained on nebulized bronchodilators, antibiotics, steroids. breathing/coughing slowly improving. Chest x-ray reporting no residual pneumothorax, interval right basilar atelectasis, possible pneumonia/effusion. Pleural VAC present, wall suction discontinued today. Blood sugars controlled. 08/07/2017 Patient is improving clinically. Still requiring BiPAP in the night. No complains of fever or chills. Chest tube is At this time. Continue to monitor as a 24 hours as per pulmonary recommendations. Patient is being continued on IV steroids and breathing treatments. No complaints of chest pain. No nausea vomiting or abdominal pain. All other review of systems negative except the above Active Medications Generic Name Dose Route Start Last Admin Trade Name Freq PRN Reason Stop Dose Admin Hydrocodone Bitart/Acetaminophen 1 each 08/03/17 12:35 08/07/17 08:14 [place] 5-325 PO 1 each Q4HR PRN Administration Moderate Pain Albuterol/Ipratropium 3 ml 08/04/17 12:00 08/07/17 15:26 Duoneb 0.5 Mg-3 Mg/3 Ml Soln INHALATION 3 ml RT-QID MARIA DEL CARMEN Administration Albuterol/Ipratropium 3 ml 08/04/17 11:34 Duoneb 0.5 Mg-3 Mg/3 Ml Soln INHALATION RT-Q2H PRN Shortness Of Breath Or Wheezing Atorvastatin Calcium 10 mg 08/03/17 21:00 08/06/17 21:33 Lipitor PO 10 mg HS MARIA DEL CARMEN Administration Budesonide/Formoterol Fumarate 2 puff 08/04/17 20:00 08/07/17 07:30 Symbicort 160-4.5 Mcg Inhaler INHALATION 2 puff RT-BID MARIA DEL CARMEN Administration Citalopram Hydrobromide 40 mg 08/04/17 09:00 08/07/17 08:08 Celexa PO 40 mg DAILY MARIA DEL CARMEN Administration Docusate Sodium 100 mg 08/06/17 11:45 08/06/17 12:18 Colace PO 100 mg DAILY PRN Administration Constipation Heparin Sodium (Porcine) 5,000 unit 08/04/17 00:00 08/07/17 15:31 Heparin SQ 5,000 unit Q8HR MARIA DEL CARMEN Administration Insulin Aspart 0 unit 08/03/17 21:00 08/07/17 12:26 Novolog SQ 6 unit ACHS MARIA DEL CARMEN Administration Protocol Insulin Aspart 5 unit 08/04/17 17:30 08/07/17 12:25 Novolog SQ 5 unit AC-TID MARIA DEL CARMEN Administration Insulin Detemir 10 unit 08/04/17 21:00 08/06/17 21:33 Levemir SQ 10 unit HS [facility] Administration Levofloxacin 750 mg 08/03/17 17:45 08/07/17 08:08 Levaquin PO 750 mg DAILY MARIA DEL CARMEN Administration Methylprednisolone Sodium Succinate 40 mg 08/03/17 18:00 08/07/17 12:27 Solu-Medrol IV 40 mg Q6HR MARIA DEL CARMEN Administration Montelukast Sodium 10 mg 08/03/17 21:00 08/06/17 21:33 Singulair PO 10 mg HS MARIA DEL CARMEN Administration Morphine Sulfate 6 mg 08/04/17 11:20 08/07/17 12:26 Morphine Oral Bárbara 2mg/Ml PO 6 mg Q6H PRN Administration Mild to Moderate Pain Morphine Sulfate 12 mg 08/04/17 11:21 08/06/17 23:15 Morphine Oral Bárbara 2mg/Ml PO 12 mg Q6H PRN Administration Severe Pain Naloxone HCl 0.2 mg 08/03/17 12:35 Narcan IV Q2M PRN Opioid Reversal Nystatin 500,000 unit 08/03/17 13:45 08/07/17 12:26 Mycostatin Oral Susp PO 500,000 unit QID MARIA DEL CARMEN Administration Ondansetron HCl 4 mg 08/03/17 12:35 Zofran IVP Q8HR PRN Nausea And Vomiting Pantoprazole Sodium 40 mg 08/06/17 07:30 08/07/17 08:09 Protonix PO 40 mg [id number]-[id number] [facility] Administration Promethazine HCl/Codeine 5 ml 08/04/17 14:00 08/07/17 12:27 Phenergan With Codeine PO 5 ml Q6HR MARIA DEL CARMEN Administration Objective - Vital Signs Vital signs: Vital Signs Temp 97.2 F L 08/07/17 15:00 Pulse 79 08/07/17 15:40 Resp 20 08/07/17 16:05 BP 130/74 08/07/17 15:00 Pulse Ox 88 L 08/07/17 15:00 Intake & Output 08/06/17 08/07/17 08/07/17 18:59 06:59 18:59 Intake Total 2350 Balance 2350 Weight 122.47 kg Intake: Oral 2350 Other: Voiding Method Urinal # Voids 3 1 3 - Exam PHYSICAL EXAMINATION: Patient is lying in the bed comfortably, no acute distress, awake alert and oriented.. HEENT: Normocephalic. Neck is supple. Pupils reactive. Nostrils clear. Oral cavity is moist. Ears reveal no drainage. Neck reveals no JVD, carotid bruits, or thyromegaly. CHEST EXAMINATION: Trachea is central. Symmetrical expansion. Bilateral diffuse reveals and rhonchi. Expiratory wheezing CARDIAC: Normal S1, S2 with no gallops. No murmurs ABDOMEN: Soft. Bowel sounds normal. No organomegaly. No abdominal bruits. Extremities: reveal no edema. No clubbing or cyanosis Neurologically awake, alert, oriented x3 with well-coordinated movements. No focal deficits noted Skin: No rash or skin lesions. Psychiatric: Cooperative. Nonsuicidal Musculoskeletal: No joint swelling or deformity. Normal range of motion. - Labs CBC & Chem 7: 08/07/17 07:34 08/07/17 07:34 Labs: Abnormal Lab Results - Last 24 Hours (Table) 08/06/17 08/06/17 08/07/17 Range/Units 16:51 21:02 06:56 WBC (3.8-10.6) k/uL RDW (11.5-15.5) % Neutrophils # (1.3-7.7) k/uL Lymphocytes # (1.0-4.8) k/uL Chloride (98-107) mmol/L Carbon Dioxide (22-30) mmol/L BUN (9-20) mg/dL Glucose (74-99) mg/dL POC Glucose (mg/dL) 193 H 211 H 145 H (75-99) mg/dL 08/07/17 08/07/17 08/07/17 Range/Units 07:34 07:34 12:11 WBC 13.1 H (3.8-10.6) k/uL RDW 18.8 H (11.5-15.5) % Neutrophils # 11.6 H (1.3-7.7) k/uL Lymphocytes # 0.9 L (1.0-4.8) k/uL Chloride 97 L (98-107) mmol/L Carbon Dioxide 31 H (22-30) mmol/L BUN 24 H (9-20) mg/dL Glucose 142 H (74-99) mg/dL POC Glucose (mg/dL) 201 H (75-99) mg/dL Microbiology - Last 24 Hours (Table) 08/03/17 11:25 Blood Culture - Preliminary Blood No Growth after 96 hours 08/06/17 08:00 Gram Stain - Preliminary Sputum Sputum Culture - Preliminary Assessment and Plan Assessment: -acute COPD exacerbation with acute tracheobronchitis -acute left-sided Pneumothorax-50% hemithorax status post chest tube/thoravent. -Shortness of breath secondary to COPD and pneumothorax -Obstructive sleep apnea with CPAP -hx pulmonary embolus -hyperlipidemia -possible Diabetes mellitus, hemoglobin A1c 6.6 plan: Continue on current medication regime ,monitoring and symptomatic treatment. Maintain nebulized bronchodilators, antibiotics, Phenergan with codeine.follow closely with pulmonary.close monitoring of Accu-Cheks. Time with Patient: Greater than 30
[2017-08-07 18:04] LABS: Glucose,Whole Blood 191 mg/dL (75-99)
[2017-08-07] MEDS: INSULIN DETEMIR 100 UNIT/ML 10 ML VIAL SQ SCH (20:41)
[2017-08-07] MEDS: MONTELUKAST 10 MG TAB PO SCH (20:41)
[2017-08-07] MEDS: ATORVASTATIN 10 MG TAB PO SCH (20:41)
[2017-08-07 20:57] LABS: Glucose,Whole Blood 212 mg/dL (75-99)
[2017-08-08] MEDS: methylPREDNISolone SOD SUCCI 40 MG/ML 1 ML VIAL IV SCH ×4 (06:29→23:27)
[2017-08-08] MEDS: PROMETHAZ-COD 6.25-10 MG/5 ML 5 ML CUP PO SCH ×4 (06:29→23:27)
[2017-08-08 07:00] LABS: Glucose,Whole Blood 175 mg/dL (75-99)
[2017-08-08] MEDS: INSULIN ASPART 100 UNIT/ML 1 ML 10 ML VIAL SQ SCH ×8 (07:33→20:40)
[2017-08-08] MEDS: HEPARIN SODIUM,PORCINE 5,000 UNIT/ML 1 ML VIAL SQ SCH ×3 (07:57→23:27)
[2017-08-08] MEDS: NYSTATIN 100,000 UNIT/ML SUSP 500,000 UNIT/5 ML CUP PO SCH ×4 (07:58→20:40)
[2017-08-08] MEDS: CITALOPRAM HYDROBROMIDE 20 MG TAB PO SCH (07:58)
[2017-08-08] MEDS: PANTOPRAZOLE 40 MG TABLET PO SCH (07:58)
[2017-08-08] MEDS: LEVOFLOXACIN 750 MG TAB PO SCH (07:59)
--- NOTE | 2017-08-08 08:13 | XR ---
EXAMINATION TYPE: XR chest 2V DATE OF EXAM: 08/08/2017 COMPARISON: 08/07/2017 TECHNIQUE: PA and lateral views submitted. HISTORY: Follow-up left pneumothorax FINDINGS: Right-sided consolidation and pleural effusion noted. No sizable pneumothorax on the left elevated ri ght hemidiaphragm noted. A Heimlich valve remains in place on the left. IMPRESSION: 1. Stable right-sided consolidation and pleural effusion. 2. No sizable pneumothorax..
[2017-08-08] MEDS: SYMBICORT 160-4.5 MCG INHALER INHALATION SCH ×2 (08:19→21:05)
[2017-08-08] MEDS: IPRATROPIUM-ALBUTEROL 3 ML NEB INHALATION SCH ×4 (08:19→21:05)
[2017-08-08 09:11] LABS: Anisocytosis Slight; Basophils % (A) 0 %; Eosinophils # (A) 0.1 k/uL (0-0.7); Eosinophils % (A) 0 %; HCT 45.5 % (39.0-53.0); HGB 14.5 gm/dL (13.0-17.5); Lymphocytes # (A) 0.8 k/uL (1.0-4.8); Lymphocytes % (A) 6 %; MCH 26.5 pg (25.0-35.0); MCHC 31.9 g/dL (31.0-37.0); MCV 83.1 fL (80.0-100.0); Mean Platelet Volume 6.1; Monocytes # (A) 0.4 k/uL (0-1.0); Monocytes % (A) 3 %; Neutrophils % (A) 90 %; Platelet Count 188 k/uL (150-450); RBC 5.47 m/uL (4.30-5.90); RDW 18.6 % (11.5-15.5); WBC 12.3 k/uL (3.8-10.6)
[2017-08-08 09:26] LABS: Chloride 97 mmol/L (98-107); Glucose 194 mg/dL (74-99); Potassium 4.7 mmol/L (3.5-5.1); Sodium 135 mmol/L (137-145)
[2017-08-08 09:27] LABS: Anion Gap 9 mmol/L; Blood Urea Nitrogen 26 mg/dL (9-20); Calcium 9.1 mg/dL (8.4-10.2); Carbon Dioxide 29 mmol/L (22-30)
[2017-08-08 11:57] LABS: Glucose,Whole Blood 134 mg/dL (75-99)
--- NOTE | 2017-08-08 12:24 | P.PN ---
Subjective Progress Note Date: 08/08/17 Principal diagnosis: Acute left sided spontaneous pneumothorax. A pleasant 56-year-old male patient with known history of COPD, severe tracheal bronchomalacia, previous history of pulmonary embolism maintained on Xarelto, indigent 2 history of severe obstructive sleep apnea with an AHI of 68.4 and the patient was treated with CPAP which was recently dropped to a pressure of 10 cm of water. The patient has a preserved LV function with an ejection fraction of 55-60% without any valvular abnormalities. His other comorbid conditions include tic douloureux, hyperlipidemia, and obesity. He is an ex- smoker. This patient has been having symptoms of acute COPD exacerbation tracheal bronchitis which was being managed on outpatient basis by Dr. Gonsalez and Dr. Michelle Darling. The patient has received a combination of bronchodilators, and steroids without much of an improvement. Today was seen again in the office and he was actively coughing and bronchospastic. He was also having pain across his left chest. He came in to the burst department and the chest x-ray showed a pneumothorax on the left. Note that the patient has bullous emphysema and the findings were not absolutely clear to me. I proceeded with a CAT scan of the chest that showed no evidence of any pulmonary embolism. There was a 50 % pneumothorax on the left along with some bullous emphysematous changes in the lung apices bilaterally. At that point, I inserted a Thoravent in the emergency department on the left with successful expansion of the left lung. The patient remained hemodynamically stable throughout the procedure. Pulse ox improved and he came up to 95-96% on 2 L of oxygen by nasal cannula following the procedure. The patient has maintained on Spiriva on outpatient basis regarding his COPD. He is an ex-smoker. He has been doing well and his pulmonary embolism dates back to 2016. No swelling in lower extremities. No other complaint otherwise for now. No altered mental status. On 08/04/2017 patient seen in follow-up. He states his shortness of breath is better, but he has a persistent barky, nonproductive cough. Today's chest x- ray was reviewed by Dr. Guadarrama, and showed Thoravent in place. Small left apical pneumothorax persists, some basilar atelectatic changes are present. No evident pleural effusion. Lung sounds are positive for scattered diffuse rhonchi throughout the lung an. Thoravent is in place, and connected to Pleur-evac, there is minimal air leak noted, on today's exam. We'll continue with current treatment, and we will add Phenergan with codeine for persistent coughing. On 07/09/2017 patient is seen and examined. He states his breathing continues to improve, although not back to his baseline. Lung sounds are less congested, less rhonchorous on today's exam. Only a few scattered wheezes, still having the persistent coughing, will stop the flutter valve. The promethazine improved the persistent coughing somewhat. Today's chest x-ray was reviewed by Dr. Guadarrama and showed no residual pneumothorax. Interval right basilar atelectasis. Patient's thoravent remains in place, with no air leak. Today we will disconnect the Pleur-evac, and discontinue to wall suction. We'll repeat the chest x-ray in the morning. Continue with medical treatments, nebulized treatments, steroids, empiric antibiotics, Singulair, promethazine with codeine. On 08/06/2017, I'm seeing this patient for a follow-up. The patient looking well. Cough has improved in the order of 50%. Less progress spastic and wheezy compared to yesterday. The chest x-ray from today is fully expanded and there is no evidence of any pneumothorax. The patient has a Thoravent in place and the catheter has been For now. No significant leukocytosis. Blood sugars slightly elevated as the patient is receiving systemic steroids. He is also on bronchodilators [id number]. The chest x-ray from today shows a limited atelectatic changes in the right lung base. Right hemidiaphragm is also elevated compared to the left. No altered mentation. No chest pain. No other significant events overnight. On 1017, I'm seeing this patient for a follow-up. The chest x-ray remains fully expanded and the chest tube itself capped. I decided to keep the chest tube in for another 24 hours as the patient is still having some coughing spells and I'm worried that he may the collapses lung. This tube which is a smaller tube can be pulled out at anytime at a later stage. Clinically is improving. Ambulating. He has a congested cough and wheeze and this is related to his underlying COPD exacerbation. He is afebrile. His hemodynamics is stable. The sputum Gram stain and culture came back negative. The blood culture was also negative. Reevaluated today on 08/08/2017, patient is feeling better, his thoravent has been For the last 2 days, chest x-ray showed no evidence of pneumothorax. Patient continues to have intermittent episodes of cough, some wheezing and congestion. Remains afebrile. And remains hemodynamically stable. Chest x- ray was reviewed suspicious for right lower lobe atelectasis. Strongly doubt pneumonia. Laboratory studies including CBC and basic metabolic profile were noted to be relatively normal except for slight leukocytosis with WBC count of 12.3. Objective - Vital Signs Vital signs: Vital Signs Temp 97.6 F 08/08/17 07:00 Pulse 96 08/08/17 11:45 Resp 20 08/08/17 07:00 BP 129/77 08/08/17 07:00 Pulse Ox 92 L 08/08/17 08:23 Intake & Output 08/07/17 08/08/17 08/08/17 18:59 06:59 18:59 Intake Total 2350 350 480 Output Total 600 600 Balance 2350 -250 -120 Weight 122.47 kg 122.47 kg Intake: Oral 2350 350 480 Output: Urine 600 600 Other: Voiding Method Urinal Urinal # Voids 3 1 1 - Exam Physical Exam: Revealed a 56-year-old white male in no distress. HEENT:[Neck is supple.] [No neck masses.] [No thyromegaly.] [No JVD.] Chest: [Clear throughout, no crackles, no rhonchi, no wheezes.] Cardiac Exam: [Normal S1 and S2, no S3 gallop, no murmur.] Abdomen: [Soft, nontender, no megaly, no rebound, no guarding, normal bowel sounds.] Extremities: [No clubbing, no edema, no cyanosis.] Neurological Exam: [No focal neurologic deficit.] Psychiatric: Normal mood affect and mental status exam Lymphatics: No lymphadenopathy. Musculoskeletal: Intact, normal range of motion, no deformities. - Labs CBC & Chem 7: 08/08/17 08:41 08/08/17 08:41 Labs: Abnormal Lab Results - Last 24 Hours (Table) 08/07/17 08/07/17 08/08/17 Range/Units 17:43 20:32 06:50 WBC (3.8-10.6) k/uL RDW (11.5-15.5) % Neutrophils # (1.3-7.7) k/uL Lymphocytes # (1.0-4.8) k/uL Sodium (137-145) mmol/L Chloride (98-107) mmol/L BUN (9-20) mg/dL Glucose (74-99) mg/dL POC Glucose (mg/dL) 191 H 212 H 175 H (75-99) mg/dL 08/08/17 08/08/17 08/08/17 Range/Units 08:41 08:41 11:53 WBC 12.3 H (3.8-10.6) k/uL RDW 18.6 H (11.5-15.5) % Neutrophils # 11.0 H (1.3-7.7) k/uL Lymphocytes # 0.8 L (1.0-4.8) k/uL Sodium 135 L (137-145) mmol/L Chloride 97 L (98-107) mmol/L BUN 26 H (9-20) mg/dL Glucose 194 H (74-99) mg/dL POC Glucose (mg/dL) 134 H (75-99) mg/dL Microbiology - Last 24 Hours (Table) 08/06/17 08:00 Gram Stain - Final Sputum Sputum Culture - Final 08/03/17 11:25 Blood Culture - Preliminary Blood No Growth after 96 hours Assessment and Plan Assessment: 1 acute secondary left-sided pneumothorax, 50% of the left hemithorax, status post insertion of Thora vent. The patient established a full expansion of the left lung and currently the patient does not have any pneumothorax and the catheters. On today's evaluation of the chest x-ray shows no evidence of any pneumothorax and the tube is also on a good location. Hence the Thora vent will be removed today. 2 acute shortness of breath secondary to a left-sided pneumothorax and COPD exacerbation, improved as the patient is being treated for COPD exacerbation a left-sided pneumothorax has been treated 3 acute tracheobronchitis, currently on antibiotics and steroids and bronchodilators 4 acute COPD exacerbation with secondary shortness of breath cough bronchospasm wheezing 5 obstructive sleep apnea with an AHI of 64 currently on CPAP pressure of 10 cm of water 6 previous history of pulmonary embolism dates back in 2016 7 restless leg syndrome 8 hyperlipidemia 9 tic douloureux Recommendation: Plan to have the Thora vent removed today, and possible discharge home later today or in a.m. Repeat chest x-ray later today if the tube is removed today. Time with Patient: Less than 30
[2017-08-08] MEDS: HYDROcodone/APAP 5-325MG 1 EACH TAB PO PRN ×2 (12:41→20:39)
[2017-08-08 17:41] LABS: Glucose,Whole Blood 225 mg/dL (75-99)
--- NOTE | 2017-08-08 18:01 | P.PN ---
Subjective Acute COPD exacerbation and pneumothorax interval history:maintained on nebulized bronchodilators, antibiotics, steroids.Breathing improving, nonproductive cough.chest x-ray reporting similar findings, minimal subcu emphysema, minimal apical pneumothorax.afebrile, preliminary blood cultures negative at 24 hours. CPAP at bedside.blood sugars elevated. 08/05/2017 maintained on nebulized bronchodilators, antibiotics, steroids. breathing/coughing slowly improving. Chest x-ray reporting no residual pneumothorax, interval right basilar atelectasis, possible pneumonia/effusion. Pleural VAC present, wall suction discontinued today. Blood sugars controlled. 08/07/2017 Patient is improving clinically. Still requiring BiPAP in the night. No complains of fever or chills. Chest tube is At this time. Continue to monitor as a 24 hours as per pulmonary recommendations. Patient is being continued on IV steroids and breathing treatments. No complaints of chest pain. No nausea vomiting or abdominal pain. All other review of systems negative except the above 08/08/2017 Patient's chest tube was removed feeling well he does have a abnormal breath sounds because of broncho-Malasia patient is off oxygen is feeling well. And repeat chest x-ray tomorrow. iConstitutional: Denied any fatigue denied any fever. Cardio vascular: denied any chest pain, palpitations Gastrointestinal denied any nausea vomiting Pulmonary: Denied any shortness of breath cough Neurologic denied any new focal deficits Objective - Vital Signs Vital signs: Vital Signs Temp 97.5 F L 08/08/17 15:00 Pulse 96 08/08/17 16:12 Resp 18 08/08/17 15:00 BP 118/77 08/08/17 15:00 Pulse Ox 92 L 08/08/17 15:00 Intake & Output 08/07/17 08/08/17 08/08/17 18:59 06:59 18:59 Intake Total 2350 350 720 Output Total 600 600 Balance 2350 -250 120 Weight 122.47 kg 122.47 kg Intake: Oral 2350 350 720 Output: Urine 600 600 Other: Voiding Method Urinal Urinal # Voids 3 1 2 # Bowel Movements 0 - Exam PHYSICAL EXAMINATION: GENERAL: The patient is alert and oriented x3, not in any acute distress. Well developed, well nourished. HEENT: Pupils are round and equally reacting to light. EOMI. No scleral icterus. No conjunctival pallor. Normocephalic, atraumatic. No pharyngeal erythema. No thyromegaly. CARDIOVASCULAR: S1 and S2 present. No murmurs, rubs, or gallops. PULMONARY: abnormal rhonchus breath sounds good air entry into bilateral lung an no wheezing was appreciated ABDOMEN: Soft, nontender, nondistended, normoactive bowel sounds. No palpable organomegaly. MUSCULOSKELETAL: No joint swelling or deformity. EXTREMITIES: No cyanosis, clubbing, or pedal edema. NEUROLOGICAL: Gross neurological examination did not reveal any focal deficits. SKIN: No rashes. - Labs CBC & Chem 7: 08/08/17 08:41 08/08/17 08:41 Labs: Abnormal Lab Results - Last 24 Hours (Table) 08/07/17 08/07/17 08/08/17 Range/Units 17:43 20:32 06:50 WBC (3.8-10.6) k/uL RDW (11.5-15.5) % Neutrophils # (1.3-7.7) k/uL Lymphocytes # (1.0-4.8) k/uL Sodium (137-145) mmol/L Chloride (98-107) mmol/L BUN (9-20) mg/dL Glucose (74-99) mg/dL POC Glucose (mg/dL) 191 H 212 H 175 H (75-99) mg/dL 08/08/17 08/08/17 08/08/17 Range/Units 08:41 08:41 11:53 WBC 12.3 H (3.8-10.6) k/uL RDW 18.6 H (11.5-15.5) % Neutrophils # 11.0 H (1.3-7.7) k/uL Lymphocytes # 0.8 L (1.0-4.8) k/uL Sodium 135 L (137-145) mmol/L Chloride 97 L (98-107) mmol/L BUN 26 H (9-20) mg/dL Glucose 194 H (74-99) mg/dL POC Glucose (mg/dL) 134 H (75-99) mg/dL 08/08/17 Range/Units 17:37 WBC (3.8-10.6) k/uL RDW (11.5-15.5) % Neutrophils # (1.3-7.7) k/uL Lymphocytes # (1.0-4.8) k/uL Sodium (137-145) mmol/L Chloride (98-107) mmol/L BUN (9-20) mg/dL Glucose (74-99) mg/dL POC Glucose (mg/dL) 225 H (75-99) mg/dL Microbiology - Last 24 Hours (Table) 08/03/17 11:25 Blood Culture - Preliminary Blood No Growth after 120 hours 08/06/17 08:00 Gram Stain - Final Sputum Sputum Culture - Final Assessment and Plan Plan: -acute COPD exacerbation with acute tracheobronchitis -acute left-sided Pneumothorax-50% hemithorax status post chest tube/thoravent. chest tubes were removed today -Shortness of breath secondary to COPD and pneumothorax -Obstructive sleep apnea with CPAP -hx pulmonary embolus -hyperlipidemia -possible Diabetes mellitus, hemoglobin A1c 6.6 plan: Continue on current medication regime ,monitoring and symptomatic treatment. Maintain nebulized bronchodilators, antibiotics, Phenergan with codeine.follow closely with pulmonary.close monitoring of Accu-Cheks.repeat chest x-ray tomorrow if there is no abnormality patient probably will be discharged tomorrow, wean off oxygen.
[2017-08-08] MEDS: INSULIN DETEMIR 100 UNIT/ML 10 ML VIAL SQ SCH (20:40)
[2017-08-08] MEDS: MONTELUKAST 10 MG TAB PO SCH (20:40)
[2017-08-08] MEDS: ATORVASTATIN 10 MG TAB PO SCH (20:46)
[2017-08-08 21:07] LABS: Glucose,Whole Blood 226 mg/dL (75-99)
[2017-08-09] MEDS: PROMETHAZ-COD 6.25-10 MG/5 ML 5 ML CUP PO SCH ×2 (05:11→11:34)
[2017-08-09] MEDS: HYDROcodone/APAP 5-325MG 1 EACH TAB PO PRN ×2 (05:11→08:44)
[2017-08-09] MEDS: methylPREDNISolone SOD SUCCI 40 MG/ML 1 ML VIAL IV SCH ×2 (05:11→11:35)
[2017-08-09 07:19] LABS: Glucose,Whole Blood 168 mg/dL (75-99)
[2017-08-09 07:33] VITALS: BP 136/77; TEMP 96.3
[2017-08-09 08:30] VITALS: RESP 16
[2017-08-09] MEDS: IPRATROPIUM-ALBUTEROL 3 ML NEB INHALATION SCH ×2 (08:30→12:24)
[2017-08-09] MEDS: SYMBICORT 160-4.5 MCG INHALER INHALATION SCH (08:30)
[2017-08-09] MEDS: INSULIN ASPART 100 UNIT/ML 1 ML 10 ML VIAL SQ SCH ×4 (08:31→12:32)
[2017-08-09] MEDS: HEPARIN SODIUM,PORCINE 5,000 UNIT/ML 1 ML VIAL SQ SCH (08:32)
[2017-08-09] MEDS: PANTOPRAZOLE 40 MG TABLET PO SCH (08:32)
[2017-08-09] MEDS: NYSTATIN 100,000 UNIT/ML SUSP 500,000 UNIT/5 ML CUP PO SCH ×2 (08:33→14:17)
[2017-08-09] MEDS: CITALOPRAM HYDROBROMIDE 20 MG TAB PO SCH (08:33)
[2017-08-09] MEDS: LEVOFLOXACIN 750 MG TAB PO SCH (08:33)
--- NOTE | 2017-08-09 09:12 | XR ---
EXAMINATION TYPE: XR chest 1V portable DATE OF EXAM: 08/09/2017 COMPARISON: 08/08/2017 HISTORY: Chest tube removal TECHNIQUE: Single frontal view of the chest is obtained. FINDINGS: No sizable pneumothorax post chest tube removal. Right-sided consolidation and pleural effusion stable. Heart mildly prominent no overt failure. IMPRESSION: 1. Stable right-sided consolidation and pleural effusion. 2. No pneumothorax post chest tube removal
[2017-08-09 12:05] LABS: Glucose,Whole Blood 180 mg/dL (75-99)
[2017-08-09] MEDS ORDERED: predniSONE 20 MG TAB PO SCH (12:30)
[2017-08-09 12:32] VITALS: PULSE 96
--- NOTE | 2017-08-09 15:07 | P.PN ---
Subjective Progress Note Date: 08/09/17 Principal diagnosis: Acute left sided spontaneous pneumothorax. A pleasant 56-year-old male patient with known history of COPD, severe tracheal bronchomalacia, previous history of pulmonary embolism maintained on Xarelto, indigent 2 history of severe obstructive sleep apnea with an AHI of 68.4 and the patient was treated with CPAP which was recently dropped to a pressure of 10 cm of water. The patient has a preserved LV function with an ejection fraction of 55-60% without any valvular abnormalities. His other comorbid conditions include tic douloureux, hyperlipidemia, and obesity. He is an ex- smoker. This patient has been having symptoms of acute COPD exacerbation tracheal bronchitis which was being managed on outpatient basis by Dr. Gonsalez and Dr. Michelle Darling. The patient has received a combination of bronchodilators, and steroids without much of an improvement. Today was seen again in the office and he was actively coughing and bronchospastic. He was also having pain across his left chest. He came in to the burst department and the chest x-ray showed a pneumothorax on the left. Note that the patient has bullous emphysema and the findings were not absolutely clear to me. I proceeded with a CAT scan of the chest that showed no evidence of any pulmonary embolism. There was a 50 % pneumothorax on the left along with some bullous emphysematous changes in the lung apices bilaterally. At that point, I inserted a Thoravent in the emergency department on the left with successful expansion of the left lung. The patient remained hemodynamically stable throughout the procedure. Pulse ox improved and he came up to 95-96% on 2 L of oxygen by nasal cannula following the procedure. The patient has maintained on Spiriva on outpatient basis regarding his COPD. He is an ex-smoker. He has been doing well and his pulmonary embolism dates back to 2016. No swelling in lower extremities. No other complaint otherwise for now. No altered mental status. On 08/04/2017 patient seen in follow-up. He states his shortness of breath is better, but he has a persistent barky, nonproductive cough. Today's chest x- ray was reviewed by Dr. Guadarrama, and showed Thoravent in place. Small left apical pneumothorax persists, some basilar atelectatic changes are present. No evident pleural effusion. Lung sounds are positive for scattered diffuse rhonchi throughout the lung an. Thoravent is in place, and connected to Pleur-evac, there is minimal air leak noted, on today's exam. We'll continue with current treatment, and we will add Phenergan with codeine for persistent coughing. On 07/09/2017 patient is seen and examined. He states his breathing continues to improve, although not back to his baseline. Lung sounds are less congested, less rhonchorous on today's exam. Only a few scattered wheezes, still having the persistent coughing, will stop the flutter valve. The promethazine improved the persistent coughing somewhat. Today's chest x-ray was reviewed by Dr. Guadarrama and showed no residual pneumothorax. Interval right basilar atelectasis. Patient's thoravent remains in place, with no air leak. Today we will disconnect the Pleur-evac, and discontinue to wall suction. We'll repeat the chest x-ray in the morning. Continue with medical treatments, nebulized treatments, steroids, empiric antibiotics, Singulair, promethazine with codeine. On 08/06/2017, I'm seeing this patient for a follow-up. The patient looking well. Cough has improved in the order of 50%. Less progress spastic and wheezy compared to yesterday. The chest x-ray from today is fully expanded and there is no evidence of any pneumothorax. The patient has a Thoravent in place and the catheter has been For now. No significant leukocytosis. Blood sugars slightly elevated as the patient is receiving systemic steroids. He is also on bronchodilators [id number]. The chest x-ray from today shows a limited atelectatic changes in the right lung base. Right hemidiaphragm is also elevated compared to the left. No altered mentation. No chest pain. No other significant events overnight. On 1017, I'm seeing this patient for a follow-up. The chest x-ray remains fully expanded and the chest tube itself capped. I decided to keep the chest tube in for another 24 hours as the patient is still having some coughing spells and I'm worried that he may the collapses lung. This tube which is a smaller tube can be pulled out at anytime at a later stage. Clinically is improving. Ambulating. He has a congested cough and wheeze and this is related to his underlying COPD exacerbation. He is afebrile. His hemodynamics is stable. The sputum Gram stain and culture came back negative. The blood culture was also negative. Reevaluated today on 08/08/2017, patient is feeling better, his thoravent has been For the last 2 days, chest x-ray showed no evidence of pneumothorax. Patient continues to have intermittent episodes of cough, some wheezing and congestion. Remains afebrile. And remains hemodynamically stable. Chest x- ray was reviewed suspicious for right lower lobe atelectasis. Strongly doubt pneumonia. Laboratory studies including CBC and basic metabolic profile were noted to be relatively normal except for slight leukocytosis with WBC count of 12.3. Reevaluated today on 08/09/2017, patient continues to do well, except for intermittent cough and some wheezing. Significantly improved compared to how he felt upon admission. Chest x-ray today is reassuring, continues to have an area of atelectasis or consolidation, in the right lower lobe. Patient remains on antibiotics in the form of Levaquin. Today after reviewing the chest x-ray, I suggested switching him to oral Levaquin, oral prednisone 20 mg tapered over 2 weeks, Phenergan With Codeine, he is to continue his Symbicort, Spiriva, and albuterol, and he could be discharged home and follow up with Dr. Gonsalez on outpatient basis. Objective - Vital Signs Vital signs: Vital Signs Temp 96.3 F L 08/09/17 07:32 Pulse 96 08/09/17 12:32 Resp 16 08/09/17 08:30 BP 136/77 08/09/17 07:32 Pulse Ox 93 L 08/09/17 08:32 Intake & Output 08/08/17 08/09/17 08/09/17 18:59 06:59 18:59 Intake Total 720 1150 Output Total 600 Balance 120 1150 Weight 122.47 kg 122.47 kg Intake: Oral 720 1150 Output: Urine 600 Other: Voiding Method Urinal Urinal # Voids 2 1 # Bowel Movements 0 1 - Exam Physical Exam: Revealed a 56-year-old white male in no distress. HEENT:[Neck is supple.] [No neck masses.] [No thyromegaly.] [No JVD.] Chest: [Clear throughout, no crackles, no rhonchi, no wheezes.] Cardiac Exam: [Normal S1 and S2, no S3 gallop, no murmur.] Abdomen: [Soft, nontender, no megaly, no rebound, no guarding, normal bowel sounds.] Extremities: [No clubbing, no edema, no cyanosis.] Neurological Exam: [No focal neurologic deficit.] Psychiatric: Normal mood affect and mental status exam Lymphatics: No lymphadenopathy. Musculoskeletal: Intact, normal range of motion, no deformities. - Labs CBC & Chem 7: 08/08/17 08:41 08/08/17 08:41 Labs: Abnormal Lab Results - Last 24 Hours (Table) 08/08/17 08/08/17 08/09/17 Range/Units 17:37 20:30 07:09 POC Glucose (mg/dL) 225 H 226 H 168 H (75-99) mg/dL 08/09/17 Range/Units 12:03 POC Glucose (mg/dL) 180 H (75-99) mg/dL Microbiology - Last 24 Hours (Table) 08/03/17 11:25 Blood Culture - Preliminary Blood No Growth after 120 hours 08/06/17 08:00 Gram Stain - Final Sputum Sputum Culture - Final Assessment and Plan Assessment: 1 acute secondary left-sided pneumothorax, 50% of the left hemithorax, status post insertion of Thora vent. And removal, pneumothorax did resolve completely. 2 acute shortness of breath secondary to a left-sided pneumothorax and COPD exacerbation, improved as the patient is being treated for COPD exacerbation a left-sided pneumothorax has been treated 3 acute tracheobronchitis, currently on antibiotics and steroids and bronchodilators 4 acute COPD exacerbation with secondary shortness of breath cough bronchospasm wheezing 5 obstructive sleep apnea with an AHI of 64 currently on CPAP pressure of 10 cm of water 6 previous history of pulmonary embolism dates back in 2016 7 restless leg syndrome 8 hyperlipidemia 9 tic douloureux Recommendation: Switch to oral antibiotics, oral prednisone, continue bronchodilators, clear for discharge planning today and follow up with Dr. Gonsalez in the next few days or early next week. Time with Patient: Less than 30
--- NOTE | 2017-08-09 16:14 | P.DS ---
Providers Date of admission: 08/03/17 12:35 Expected date of discharge: 08/09/17 Attending physician: Yvan Montanez Consults: 08/03/17 12:36 Consult Physician Routine Consulting Provider: Giovani Guadarrama Consult Reason/Comments: copd Do you want consulting provider notified?: Yes Primary care physician: Yvan Barton Hospital Course: Final Diagnoses: -acute COPD exacerbation with acute tracheobronchitis -acute left-sided Pneumothorax-50% hemithorax status post chest tube/thoravent. chest tubes removed -Shortness of breath secondary to COPD and pneumothorax -Obstructive sleep apnea with CPAP -hx pulmonary embolus -hyperlipidemia -possible Diabetes mellitus, hemoglobin A1c 6.6 Hospital course: This is a 56-year-old gentleman admitted with acute COPD exacerbation, acute left-sided spontaneous pneumothorax, severe tracheal bronchomalacia and multiple other medical issues. PE ruled out. Evaluated by pulmonary. Thoravent inserted with successful expansion of left lung. Maintained on nebulized bronchodilators, antibiotics, steroids. Significant clinical improvement. Chest tube discontinued, tolerated well with no evidence of pneumothorax; right lower lobe consolidation or atelectasis. Cleared by pulmonary for discharge. Patient is being discharged home in a stable condition with guarded prognosis. Hemoglobin A1c is 6.6 on admission and patient to continue monitoring his Accu- Cheks 4 times a day, maintain log, take to follow-up follow-up visit with PCP for further recommendations. Patient is being discharged home in a stable condition with guarded prognosis. PHYSICAL EXAMINATION: GENERAL: The patient is alert and oriented x3, not in any acute distress. Well developed, well nourished. HEENT: Pupils are round and equally reacting to light. EOMI. No scleral icterus. No conjunctival pallor. Normocephalic, atraumatic. No pharyngeal erythema. No thyromegaly. CARDIOVASCULAR: S1 and S2 present. No murmurs, rubs, or gallops. PULMONARY: abnormal rhonchus breath sounds good air entry into bilateral lung an no wheezing was appreciated ABDOMEN: Soft, nontender, nondistended, normoactive bowel sounds. No palpable organomegaly. MUSCULOSKELETAL: No joint swelling or deformity. EXTREMITIES: No cyanosis, clubbing, or pedal edema. NEUROLOGICAL: Gross neurological examination did not reveal any focal deficits. SKIN: No rashes. The impression and plan of care has been dictated as directed. : I performed a history and examination of this patient, discussed the same with the dictator. I agree with the dictator's note ,documented as a scribe. Any additional findings or plans will be noted. Time taken: 35 minutes Patient Condition at Discharge: Stable Plan - Discharge Summary Discharge Rx Participant: No New Discharge Prescriptions: New Budesonide-Formot 160-4.5 Mcg [Symbicort 160-4.5 Mcg Inhaler] 2 puff INHALATION RT-BID #1 inh Nystatin 100,000 Unit/ml Susp [Mycostatin Oral Susp] 500,000 unit PO QID #28 cup Pantoprazole [Protonix] 40 mg PO AC-BRKFST #15 tablet. Levofloxacin [Levaquin] 500 mg PO DAILY 7 Days #7 tab Promethaz-Cod 6.25-10 mg/5 ml [Phenergan with Codeine] 5 ml PO Q6HR ml Continue Montelukast [Singulair] 10 mg PO HS Vit C/E/Zn/Coppr/Lutein/Zeaxan [Preservision Areds 2 Softgel] 1 cap PO BID Cholecalciferol [Vitamin D3] 1,000 unit PO BID Simvastatin [Zocor] 20 mg PO HS Rivaroxaban [Xarelto] 20 mg PO DAILY Citalopram Hydrobromide [CeleXA] 40 mg PO DAILY Multivit-Min/FA/Lycopen/Lutein [Centrum Silver Tablet] 1 tab PO DAILY Alyssa C 1,000 mg PO BID Acidophilus Pearls 1 cap PO DAILY Albuterol Inhaler [Ventolin Hfa Inhaler] 1 puff INHALATION RT-Q6H PRN PRN Reason: Shortness Of Breath Tiotropium 18 Mcg/Puff [Spiriva] 1 cap INHALATION RT-DAILY Glucosam/Elijah-Msm1/C/Nikunj/Bosw [Glucosamine-Chondroitin Tablet] 1 tab PO BID Psyllium Husk [Metamucil] 0.8 gm PO DAILY Testosterone Cypionate [Depo-Testosterone] 200 mg IM Q14D Discharge Medication List Cholecalciferol [Vitamin D3] 1,000 unit PO BID 01/11/15 [History] Montelukast [Singulair] 10 mg PO HS 01/11/15 [History] Simvastatin [Zocor] 20 mg PO HS 01/11/15 [History] Vit C/E/Zn/Coppr/Lutein/Zeaxan [Preservision Areds 2 Softgel] 1 cap PO BID 01/11 [History] Acidophilus Pearls 1 cap PO DAILY 04/26/16 [History] Citalopram Hydrobromide [CeleXA] 40 mg PO DAILY 04/26/16 [History] Alyssa C 1,000 mg PO BID 04/26/16 [History] Multivit-Min/FA/Lycopen/Lutein [Centrum Silver Tablet] 1 tab PO DAILY 04/26/16 [ History] Rivaroxaban [Xarelto] 20 mg PO DAILY 04/26/16 [History] Albuterol Inhaler [Ventolin Hfa Inhaler] 1 puff INHALATION RT-Q6H PRN 08/03/17 [ History] Glucosam/Elijah-Msm1/C/Nikunj/Bosw [Glucosamine-Chondroitin Tablet] 1 tab PO BID [History] Psyllium Husk [Metamucil] 0.8 gm PO DAILY 08/03/17 [History] Testosterone Cypionate [Depo-Testosterone] 200 mg IM Q14D 08/03/17 [History] Tiotropium 18 Mcg/Puff [Spiriva] 1 cap INHALATION RT-DAILY 08/03/17 [History] Budesonide-Formot 160-4.5 Mcg [Symbicort 160-4.5 Mcg Inhaler] 2 puff INHALATION RT-BID #1 inh 08/09/17 [Rx] Levofloxacin [Levaquin] 500 mg PO DAILY 7 Days #7 tab 08/09/17 [Rx] Nystatin 100,000 Unit/ml Susp [Mycostatin Oral Susp] 500,000 unit PO QID #28 cup 08/09/17 [Rx] Pantoprazole [Protonix] 40 mg PO AC-BRKFST #15 tablet. 08/09/17 [Rx] Promethaz-Cod 6.25-10 mg/5 ml [Phenergan with Codeine] 5 ml PO Q6HR ml [Rx] Follow up Appointment(s)/Referral(s): Yvan Barton MD [Primary Care Provider] - 08/12/17 10:00 am Concha García MD [STAFF PHYSICIAN] - 08/31/17 10:00 am Ambulatory/Diagnostic Orders: Complete Blood Count w/diff [LAB.AMB] Time Frame: 3 Days, Location: Determined By Patient Patient Instructions/Handouts: Spontaneous Pneumothorax (DC), COPD (Chronic Obstructive Pulmonary Disease) (DC) Activity/Diet/Wound Care/Special Instructions: Diet: Consistent carb Accu-Cheks before meals and at bedtime,(hemoglobin A1c 6.6), keep log of blood glucose; take to follow-up visit with Dr. Barton/Carmenza for further recommendations. Discharge Disposition: HOME SELF-CARE
== END 2017-08-09 15:36 | disposition home or self-care (01) | DRG 200 ==
LOC: EC 10:21 → 4MS4W 12:35
PROVIDERS: ADMIT Family Medicine; ATTEND Family Medicine
PROC: 0W9B30Z Drainage of Left Pleural Cavity with Drainage Device, Percutaneous Approach (ICD-10-PCS; principal; 2017-08-03)
DX: J93.82 Other air leak (principal); J44.1 Chronic obstructive pulmonary disease with (acute) exacerbation; J44.0 Chronic obstructive pulmonary disease with (acute) lower respiratory infection; J98.11 Atelectasis; E78.5 Hyperlipidemia, unspecified; G47.33 Obstructive sleep apnea (adult) (pediatric); M19.90 Unspecified osteoarthritis, unspecified site; J20.9 Acute bronchitis, unspecified; R53.1 Weakness; E66.9 Obesity, unspecified; G25.81 Restless legs syndrome; G50.0 Trigeminal neuralgia; F41.9 Anxiety disorder, unspecified; E09.9 Drug or chemical induced diabetes mellitus without complications; T38.0X5A Adverse effect of glucocorticoids and synthetic analogues, initial encounter; K59.00 Constipation, unspecified; Z79.890 Hormone replacement therapy; Z87.01 Personal history of pneumonia (recurrent); Z86.711 Personal history of pulmonary embolism; Z87.19 Personal history of other diseases of the digestive system; Z90.89 Acquired absence of other organs; Z87.891 Personal history of nicotine dependence; Z80.6 Family history of leukemia; Z82.5 Family history of asthma and other chronic lower respiratory diseases; Z79.899 Other long term (current) drug therapy; Z79.01 Long term (current) use of anticoagulants; Z68.37 Body mass index [BMI] 37.0-37.9, adult
CPT/HCPCS: 36415; 71045; 71046; 71275; 80048; 80053; 83036; 83880; 84484; 85025; 85610; 85730; 87040; 87070; 87205; 93005; 94640; 94644; 94660; 94667; 94760; 96365; 96375; 99291

== ENCOUNTER → 2018-09-21 | Outpatient (CLI) | payer BC ==
--- NOTE | 2018-09-22 08:19 | XR ---
EXAMINATION TYPE: XR chest 2V DATE OF EXAM: 09/21/2018 COMPARISON: 08/11/2017 TECHNIQUE: PA and lateral views submitted. HISTORY: Cough FINDINGS: The lungs are clear and there is no pneumothorax, pleural effusion, or focal pneumonia. Heart size p rominent. No overt failure. Hypertrophic and degenerative change of the vertebral column. IMPRESSION: 1. No acute process.
== END | disposition home or self-care (01) ==
LOC: RADXRMAIN 15:59
PROVIDERS: ATTEND Physician Assistant
DX: R05 Cough (principal)
CPT/HCPCS: 71046

== ENCOUNTER → 2019-02-13 | Outpatient (CLI) | payer BC ==
[~2019-02-13] MED LIST: REGADENOSON 0.4 MG/5 ML SYRINGE IV ONE
--- NOTE | 2019-02-13 11:56 | ECHOF ---
Referral Reason:R07.9 chest pain,I10 Hypertension MEASUREMENTS -------- HEIGHT: 180.3 cm WEIGHT: 133.8 kg BP: RVIDd: 3.3 cm (< 3.3) IVSd: 1.2 cm (0.6 - 1.1) LVIDd: 5.0 cm (3.9 - 5.3) LVPWd: 1.2 cm (0.6 - 1.1) IVSs: 1.7 cm LVIDs: 3.9 cm LVPWs: 1.8 cm LA Diam: 4.0 cm (2.7 - 3.8) LAESV Index (A-L): 21.92 ml/m Ao Diam: 3.0 cm (2.0 - 3.7) AV Cusp: 1.8 cm (1.5 - 2.6) TAPSE: 1.7 cm EPSS: 0.7 cm MV E Hood: 0.82 m/s MV DecT: 193 ms MV A Hood: 0.96 m/s MV E/A Ratio: 0.85 RAP: 5.00 mmHg RVSP: 29.49 mmHg MV EF SLOPE: 124.98 mm/s (70 - 150) MV EXCURSION: 1.99 cm (> 18.000) FINDINGS -------- Sinus rhythm. This was a technically adequate study. The left ventricular size is normal. There is borderline concentric left ventricular hypertrophy. Overall left ventricular systolic function is normal with, an EF between 60 - 65 %. The diastolic filling pattern is normal for the age of the patient 10.32. The right ventricle is mildly enlarged. Normal LA size by volume 22+/-6 ml/m2. The right atrium is normal in size. Interatrial and interventricular septum intact. The aortic valve is trileaflet and appears structurally normal. Mild mitral regurgitation is present. Mild tricuspid regurgitation present. Right ventricular systolic pressure is normal at < 35 mmHg. There is no pulmonic regurgitation present. The aortic root size is normal. Normal inferior vena cava with normal inspiratory collapse consistent with estimated right atrial pre ssure of 5 mmHg. The inferior vena cava is mildly dilated. There is no pericardial effusion. CONCLUSIONS -------- 1. Sinus rhythm. 2. This was a technically adequate study. 3. The left ventricular size is normal. 4. There is borderline concentric left ventricular hypertrophy. 5. Overall left ventricular systolic function is normal with, an EF between 60 - 65 %. 6. The diastolic filling pattern is normal for the age of the patient 10.32 7. The right ventricle is mildly enlarged. 8. Normal LA size by volume 22+/-6 ml/m2. 9. The right atrium is normal in size. 10. Interatrial and interventricular septum intact. 11. The aortic valve is trileaflet and appears structurally normal. 12. Mild mitral regurgitation is present. 13. Mild tricuspid regurgitation present. 14. Right ventricular systolic pressure is normal at < 35 mmHg. 15. There is no pulmonic regurgitation present. 16. The aortic root size is normal. 17. Normal inferior vena cava with normal inspiratory collapse consistent with estimated right atrial pressure of 5 mmHg. 18. The inferior vena cava is mildly dilated. 19. There is no pericardial effusion. SALESPERSON NECKTIES: Sandy Young RDCS
--- NOTE | 2019-02-13 14:52 | NM ---
EXAMINATION TYPE: NM stress lexiscan cardiolite DATE OF EXAM: 02/13/2019 COMPARISON: NONE HISTORY: Chest pain and hypertension TECHNIQUE: After the intravenous administration of 10.04 mCi Tc 99m Sestamibi - Cardiolite resting S PECT images acquired 45 minutes post injection. The patient received 0.4mg Lexiscan, 26.3 mCi Tc 99m Sestamibi - Stress images obtained [address] injection FINDINGS: Review of stress and rest SPECT images demonstrates no distinct perfusion abnormality. Gated analysi s shows normal wall motion with an estimated left ventricular ejection fraction of 46 %. IMPRESSION: No scintigraphic evidence for reversible ischemia.
--- NOTE | 2019-02-14 13:16 | EST ---
EXERCISE STRESS DATE OF SERVICE: 02/13/2019 AGE: 58 SEX: Male HT: 73" WT: 295 pounds PROTOCOL: Lexiscan Cardiolite STAGE: DURATION OF EXERCISE: HEART RATE REST: 80 BLOOD PRESSURE REST: 121/51 MAXIMUM HEART RATE ACHIEVED: 86 MAXIMUM BLOOD PRESSURE: 102/74 85% MPHR: 100% MPHR: METS: INDICATIONS: Chest pain. CLINICAL INFORMATION: The patient was given Lexiscan injection over a period of 10 seconds. Resting heart rate is 80 beats per minute. The resting blood pressure was 121/51 mmHg was noted. Peak heart rate of 86 was noted. Peak blood pressure was 102/74 mmHg was noted. Resting EKG shows normal sinus rhythm with normal MD interval and QRS duration and normal ST-T waves. No ST-segment depression suggestive of ischemia is noted. The results of the nuclear study will follow. RAIZA / CORI: [id number] /
== END | disposition home or self-care (01) ==
LOC: RADNMMAIN 07:46
PROVIDERS: ATTEND Family Medicine
DX: I11.9 Hypertensive heart disease without heart failure (principal); I08.1 Rheumatic disorders of both mitral and tricuspid valves; R07.9 Chest pain, unspecified
CPT/HCPCS: 93017; 93306; 78452; A9500; J2785

== ENCOUNTER → 2019-07-12 | Outpatient (CLI) | payer BC ==
--- NOTE | 2019-07-12 15:00 | CT ---
EXAMINATION TYPE: CT brain wo/w con DATE OF EXAM: 07/12/2019 COMPARISON: None HISTORY: Headaches x [address] DLP: 2458 mGycm Automated exposure control for dose reduction was used. CONTRAST: CT scan of the head is performed without and with IV Contrast, patient injected with 100 mL of Isovue M300. FINDINGS: There is no abnormal enhancing mass or midline shift identified. There is mild generalized degenerati ve change. Portions of the right occiput are not visualized. Correlate for previous surgery. No midline shift. No acute hemorrhage. Faint low-attenuation the white matter is nonspecific but most typical remote microvascular ischemia. There is mild prominence the basilar tip. IMPRESSION: 1. No acute hemorrhage or enhancing mass. There is a questionable nodular prominence to the basilar t ip. MRI MRA three affiliated of [place] recommended for further evaluation. 2. 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
== END | disposition home or self-care (01) ==
LOC: RADCTMAIN 13:35
PROVIDERS: ATTEND Family Medicine
DX: R51 Headache (principal)
CPT/HCPCS: 70470; Q9967

== ENCOUNTER → 2019-08-02 | Outpatient (CLI) | payer BC ==
--- NOTE | 2019-08-02 12:33 | MR ---
EXAMINATION TYPE: MR angio head wo con DATE OF EXAM: 08/02/2019 COMPARISON: CT brain July 12, 2019. HISTORY: Cerebrovascular disease, unspecified TECHNIQUE: Time of flight images focusing on the [place] of [place] were performed without contrast.. 2-D and 3-D postprocessing imaging is performed on independent workstation and reviewed. FINDINGS: There is codominant vertebrobasilar system. Vertebral arteries are patent to basilar juncti on. There is no significant focal stenosis or aneurysmal change. There is patent posterior communicat ing artery on the right. There is hypoplastic left posterior communicating artery. Images of the anterior circulation show hypoplastic anterior communicating artery. There is no signif icant focal stenosis or aneurysmal change seen. IMPRESSION: No significant focal stenosis or aneurysmal change at level of [place].
--- NOTE | 2019-08-02 12:49 | MR ---
EXAMINATION TYPE: MR brain wo/w con DATE OF EXAM: 08/02/2019 COMPARISON: CT brain July 12, 2019. HISTORY: Cerebrovascular disease, unspecified TECHNIQUE: Multiplanar, multisequence images of the brain and brainstem is performed without and with IV contras t, utilizing 13.5 mL intravenous Gadavist . FINDINGS: Diffusion weighted images demonstrate no evidence of a recent infarct or other diffusion ab normality. There is no worrisome extra-axial fluid collection. There is diffuse ventricular and sulc al prominence. There are scattered foci of T2 hyperintensity seen throughout the white matter bilater ally. Right occipital craniectomy change seen better on CT versus MRI present axial image 8 for refer ence Midline structures demonstrate normal morphology. The craniocervical junction appears within normal limits. Post contrast images demonstrate no abnormal enhancement. The dural venous sinuses appear pa tent. Mild mucosal thickening involving ethmoid sinuses and inferior maxillary sinuses bilaterally. G lobes are intact bilaterally. IMPRESSION: 1. No MRI evidence for a recent infarct. 2. Background of mild diffuse cerebral atrophy and chronic small vessel ischemic change. 3. Background mild chronic ethmoid and maxillary sinus disease.
== END | disposition home or self-care (01) ==
LOC: RADMRIMAIN 10:58
PROVIDERS: ATTEND Family Medicine
DX: G31.9 Degenerative disease of nervous system, unspecified (principal); I67.82 Cerebral ischemia
CPT/HCPCS: 70544; 70553; A9585

== ENCOUNTER → 2019-11-02 | Outpatient (CLI) | payer BC ==
[2019-11-02 13:15] LABS: African American GFR (CKD) >90 (>60 ml/min/1.73 sqM); Blood Urea Nitrogen 23 mg/dL (9-20); Non-African American GFR(CKD) >90 (>60 ml/min/1.73 sqM)
--- NOTE | 2019-11-02 13:47 | CT ---
EXAMINATION TYPE: CT angio chest DATE OF EXAM: 11/02/2019 COMPARISON: 08/03/2017 HISTORY: Shortness of breath. CT DLP: 1121.2 mGycm CONTRAST: CT chest with contrast and 3D reconstruction with MIP imaging is performed with IV Contrast, patient injected with 140ml mL of Isovue 370. Contrast-enhanced CT of the chest was performed through the course of the pulmonary arteries with burt g and mediastinal window settings submitted. 3D reconstruction with MIP imaging was also performed. PULMONARY ARTERIES: Emphysematous changes present. The pulmonary arteries and their major tributarie s are patent. I do not see evidence for sizable filling defect to suggest pulmonary embolic process. LUNGS: The lungs are clear and free of infiltrate. No evidence for atelectasis. No pulmonary nodule or mass is detected. No pleural effusion. MEDIASTINUM: Thoracic aorta is of normal caliber,however, evaluation is limited given timing of the contrast bolus. If there is concern for thoracic aortic pathology consider NIKI. Correlate clinicall y . The heart is not enlarged. No evidence for mediastinal mass. No mediastinal lymph nodes greater than 1cm. HILAR STRUCTURES: No evidence for mass. No hilar lymph nodes greater than 1 cm. UPPER ABDOMEN: No significant abnormality is seen. IMPRESSION: 1. No evidence for Pulmonary embolism at this time.
== END | disposition home or self-care (01) ==
LOC: RADCTMAIN 12:32
PROVIDERS: ATTEND Internal Medicine Critical Care Medicine
DX: R06.02 Shortness of breath (principal); Z88.1 Allergy status to other antibiotic agents; Z88.8 Allergy status to other drugs, medicaments and biological substances
CPT/HCPCS: 82565; 84520; 71275; 36415; Q9967

== ENCOUNTER 2020-03-17 06:26 | Emergency (ER) | payer BC ==
[2020-03-17 06:38] VITALS: PULSE 77; RESP 18; TEMP 98
[2020-03-17] MEDS ORDERED: HYDROmorphone 0.5 MG/0.5 ML SYRINGE IVP STA ×2 (06:43→08:58)
[2020-03-17 07:07] LABS: Basophils # (A) 0.1 k/uL (0-0.2); Basophils % (A) 1 %; Eosinophils # (A) 0.1 k/uL (0-0.7); Eosinophils % (A) 2 %; HCT 46.5 % (39.0-53.0); HGB 14.8 gm/dL (13.0-17.5); Lymphocytes # (A) 1.3 k/uL (1.0-4.8); Lymphocytes % (A) 19 %; MCH 27.9 pg (25.0-35.0); MCHC 31.9 g/dL (31.0-37.0); MCV 87.6 fL (80.0-100.0); Mean Platelet Volume 7.2; Monocytes # (A) 0.4 k/uL (0-1.0); Monocytes % (A) 6 %; Neutrophils # (A) 4.5 k/uL (1.3-7.7); Neutrophils % (A) 70 %; Platelet Count 225 k/uL (150-450); RDW 15.9 % (11.5-15.5); WBC 6.5 k/uL (3.8-10.6)
--- NOTE | 2020-03-17 07:10 | ED ---
Fall HPI <Lamont Zimmerman - Last Filed: 03/17/20 08:16> <Ana Laura Stearns - Last Filed: 03/17/20 08:22> - General Source: patient Mode of arrival: ambulatory <Chayito Jones - Last Filed: 03/17/20 08:33> - General Chief Complaint: Fall Stated Complaint: Fall Time Seen by Provider: 03/17/20 06:40 - History of Present Illness Initial Comments: Patient is a 59-year-old male, history COPD, diabetes, and to the emergency department after having a fall this morning. Patient states he was getting ready for work and missed the first step on the top of the stairs and fell all the way down approximately 10-12 stairs. Patient states he hit his head on the door at the bottom of the stairs, there was a crack in the door. Patient denies loss of consciousness, he does have a headache, neck pain, right-sided chest discomfort. Patient denies being on blood thinner. He denies any previous surgeries of his C-spine or lumbar spine. He has had chronic lower back pain no prior surgeries. He denies any pain in his lower extremities. He does have some mild discomfort in his right shoulder but he does have full range of motion . He denies any abdominal pain, nausea or vomiting. He denies any shortness of breath. His did put a soft c-collar on his neck prior to arrival. He is no further complaints at this time. Upon arrival to the ER his vitals are stable. (Chayito Jones) - Related Data Home Medications Medication Instructions Recorded Confirmed Cholecalciferol [Vitamin D3 (25 1,000 unit PO BID 01/11/15 08/11/17 Mcg = 1000 Iu)] Montelukast [Singulair] 10 mg PO HS 01/11/15 08/11/17 Simvastatin [Zocor] 20 mg PO HS 01/11/15 08/11/17 Vit C/E/Zn/Coppr/Lutein/Zeaxan 1 cap PO BID 01/11/15 08/11/17 [Preservision Areds 2 Softgel] Acidophilus Pearls 1 cap PO DAILY 04/26/16 08/11/17 Citalopram Hydrobromide [CeleXA] 40 mg PO DAILY 04/26/16 08/11/17 Alyssa C 1,000 mg PO BID 04/26/16 08/11/17 Multivit-Min/FA/Lycopen/Lutein 1 tab PO DAILY 04/26/16 08/11/17 [Centrum Silver Tablet] Rivaroxaban [Xarelto] 20 mg PO DAILY 04/26/16 08/11/17 Albuterol Inhaler (Mhu) [Ventolin 1 puff INHALATION RT-Q6H PRN 08/03/17 08/11/17 Hfa Inhaler (Mhu)] Glucosam/Elijah-Msm1/C/Nikunj/Bosw 1 tab PO BID 08/03/17 08/11/17 [Glucosamine-Chondroitin Tablet] Psyllium Husk [Metamucil] 0.8 gm PO DAILY 08/03/17 08/11/17 Testosterone Cypionate 200 mg IM Q14D 08/03/17 08/11/17 [Depo-Testosterone] Tiotropium 18 Mcg/Puff [Spiriva] 1 cap INHALATION RT-DAILY 08/03/17 08/11/17 Previous Rx's Medication Instructions Recorded Budesonide-Formot 160-4.5 Mcg 2 puff INHALATION RT-BID #1 inh 08/09/17 [Symbicort 160-4.5 Mcg Inhaler] Nystatin 100,000 Unit/ml Susp 500,000 unit PO QID #28 cup 08/09/17 [Mycostatin Oral Susp] Pantoprazole [Protonix] 40 mg PO AC-BRKFST #15 tablet. 08/09/17 Allergies Allergy/AdvReac Type Severity Reaction Status Date / Time adhesive tape Allergy Rash/Hives Verified 03/17/20 06:38 levofloxacin [From Levaquin] Allergy Rash/Hives Verified 03/17/20 06:38 Review of Systems ROS Other: All systems not noted in ROS Statement are negative. <Lamont Zimmerman - Last Filed: 03/17/20 08:16> ROS Other: All systems not noted in ROS Statement are negative. <Ana Laura Stearns - Last Filed: 03/17/20 08:22> ROS Other: All systems not noted in ROS Statement are negative. <Chayito Jones - Last Filed: 03/17/20 08:33> ROS Statement: Those systems with pertinent positive or pertinent negative responses have been documented in the HPI. Past Medical History Past Medical History: COPD, Diabetes Mellitus, Hyperlipidemia, Pneumonia, Pulmonary Embolus (PE), Sleep Apnea/CPAP/BIPAP Additional Past Medical History / Comment(s): COPD, bullous emphysema, previous history of pulmonary embolism back in 2016, obstructive sleep apnea severe maintained on CPAP at a pressure of 10 cm of water, tic douloureux, hyperlipidemia, degenerative arthritis, diverticulosis, chronic back pain History of Any Multi-Drug Resistant Organisms: None Reported Past Surgical History: Appendectomy, Hernia Repair, Tonsillectomy Additional Past Surgical History / Comment(s): tic delaroux surgery, three incisonal hernias repairs and appendectomy for a perforated appendix, ulvula trimmed, deviated septum surgery, colonoscopy. Past Anesthesia/Blood Transfusion Reactions: No Reported Reaction Past Psychological History: Anxiety, Depression Smoking Status: Former smoker Past Alcohol Use History: Occasional Past Drug Use History: None Reported - Past Family History Father Additional Family Medical History / Comment(s): bronchitis pleuricy. dad's mom had leukemia Mother Additional Family Medical History / Comment(s): emphysemia <Chayito Jones L - Last Filed: 03/17/20 08:33> General Exam Limitations: no limitations <Chayito Jones L - Last Filed: 03/17/20 08:33> - General Exam Comments Initial Comments: GENERAL: Patient is well-developed and well-nourished. Patient is nontoxic and in mild distress. HEAD: Atraumatic, normocephalic. EYES: Pupils equal round and reactive to light, extraocular movements intact, sclera anicteric, conjunctiva are normal. Eyelids were unremarkable. ENT: TMs normal, nares patent, oropharynx clear without exudates. Moist mucous membranes. NECK: Soft c-collar was in place prior to arrival, we did place a hard c-collar. Mild midline tenderness to the cervical spine. Range of motion was not tested secondary to CT results., supple without lymphadenopathy or JVD. LUNGS: Unlabored respirations. Breath sounds clear to auscultation bilaterally and equal. No wheezes rales or rhonchi. HEART: Regular rate and rhythm without murmurs, rubs or gallops. ABDOMEN: Soft, nontender, normoactive bowel sounds. No guarding, no rebound. No masses appreciated. : Deferred MUSCULOSKELETAL: Normal extremities with adequate strength and normal range of motion, no pitting or edema. Uniformer strength is equal and bilateral. No clubbing or cyanosis. NEUROLOGICAL: Patient is alert and oriented x 3. Motor and sensory are also intact. Cranial nerves II through XII grossly intact. Symmetrical smile. Normal speech, normal gait. PSYCH: Normal mood, normal affect. SKIN: Warm, Dry, normal turgor, no rashes or lesions noted. (Chayito Jones) Course Vital Signs 03/17/20 06:31 Temperature 98 F Pulse Rate 77 Respiratory 18 Rate Blood Pressure 157/85 O2 Sat by Pulse 95 Oximetry Medical Decision Making - Lab Data Result diagrams: 03/17/20 06:56 03/17/20 06:56 <Lamont Zimmerman - Last Filed: 03/17/20 08:16> - Lab Data Result diagrams: 03/17/20 06:56 03/17/20 06:56 <Ana Laura Stearns - Last Filed: 03/17/20 08:22> - Lab Data Result diagrams: 03/17/20 06:56 03/17/20 06:56 <Chayito Jones - Last Filed: 03/17/20 08:33> - Medical Decision Making Patient reevaluated and reexamined by myself, Dr. Zimmerman. Patient resting comfortably in bed. Strength 5/5 throughout extremities. Sensation is intact. Patient and family are updated on results and plan. I do agree with PA findings. This includes diagnostic interpretation and treatment plan. Dr. Jones son did come evaluate patient and would like patient transferred to [facility]. Case was discussed with Dr. lockhart there who will accept transfer. (Lamont Zimmerman) I personally saw and evaluated the patient medially upon arrival to the ER as there was concern for neck pain after fall, there is no indication for activation of the trauma. I did place full trauma panel orders including CT scans of the head neck chest abdomen and pelvis with 3 cons of the entire spine. Patient was transitioned from soft collar to hard collar. MILTON Jones obtain further past medical history and evaluation of the patient. Critical CT results were communicated, I contacted Dr. Montgomery and ortho- spine who states that [facility]. (Ana Laura Stearns) Patient is a 59-year-old male here after falling down a flight of stairs at home. His main complaint was a headache, neck pain. This was a non-activated trauma, Dr. Stearns did also see the patient. CT of the brain and C-spine reveals a fracture of the C1 segment involving its anterior and posterior ring displacement is noted proximally 4.[address] of the chest abdomen pelvis showed no acute injury. 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 Labs show no acute abnormality, EKG is normal. The patient did receive pain medication and is comfortable at this time. We did discuss this finding with orthopedic solution architect, Dr. Montgomery who agrees to accept the transfer over at [facility]. Patient will be transferred by EMS. Patient is in agreement with this plan of care. Case discussed with Dr. Zimmerman/Dr. Stearns. (Chayito Jones) - Lab Data Lab Results 03/17/20 03/17/20 03/17/20 Range/Units 06:56 06:56 06:56 WBC 6.5 (3.8-10.6) k/uL RBC 5.30 (4.30-5.90) m/uL Hgb 14.8 (13.0-17.5) gm/dL Hct 46.5 (39.0-53.0) % MCV 87.6 (80.0-100.0) fL MCH 27.9 (25.0-35.0) pg MCHC 31.9 (31.0-37.0) g/dL RDW 15.9 H (11.5-15.5) % Plt Count 225 (150-450) k/uL Neutrophils % 70 % Lymphocytes % 19 % Monocytes % 6 % Eosinophils % 2 % Basophils % 1 % Neutrophils # 4.5 (1.3-7.7) k/uL Lymphocytes # 1.3 (1.0-4.8) k/uL Monocytes # 0.4 (0-1.0) k/uL Eosinophils # 0.1 (0-0.7) k/uL Basophils # 0.1 (0-0.2) k/uL PT 10.1 (9.0-12.0) sec INR 1.0 (<1.2) APTT 21.6 L (22.0-30.0) sec Sodium 138 (137-145) mmol/L Potassium 4.6 (3.5-5.1) mmol/L Chloride 105 (98-107) mmol/L Carbon Dioxide 26 (22-30) mmol/L Anion Gap 7 mmol/L BUN 24 H (9-20) mg/dL Creatinine 0.64 L (0.66-1.25) mg/dL Est GFR (CKD-EPI)AfAm >90 (>60 ml/min/1.73 sqM) Est GFR (CKD-EPI)NonAf >90 (>60 ml/min/1.73 sqM) Glucose 157 H (74-99) mg/dL Calcium 9.0 (8.4-10.2) mg/dL Total Bilirubin 0.4 (0.2-1.3) mg/dL AST 29 (17-59) U/L ALT 28 (4-49) U/L Alkaline Phosphatase 100 (38-126) U/L Troponin I (0.000-0.034) ng/mL Total Protein 6.9 (6.3-8.2) g/dL Albumin 3.9 (3.5-5.0) g/dL Serum Alcohol <10 mg/dL Blood Type Blood Type Confirm Blood Type Recheck Bld Type Recheck Status Antibody Screen Spec Expiration Date 03/17/20 03/17/20 03/17/20 Range/Units 06:56 06:56 07:05 WBC (3.8-10.6) k/uL RBC (4.30-5.90) m/uL Hgb (13.0-17.5) gm/dL Hct (39.0-53.0) % MCV (80.0-100.0) fL MCH (25.0-35.0) pg MCHC (31.0-37.0) g/dL RDW (11.5-15.5) % Plt Count (150-450) k/uL Neutrophils % % Lymphocytes % % Monocytes % % Eosinophils % % Basophils % % Neutrophils # (1.3-7.7) k/uL Lymphocytes # (1.0-4.8) k/uL Monocytes # (0-1.0) k/uL Eosinophils # (0-0.7) k/uL Basophils # (0-0.2) k/uL PT (9.0-12.0) sec INR (<1.2) APTT (22.0-30.0) sec Sodium (137-145) mmol/L Potassium (3.5-5.1) mmol/L Chloride (98-107) mmol/L Carbon Dioxide (22-30) mmol/L Anion Gap mmol/L BUN (9-20) mg/dL Creatinine (0.66-1.25) mg/dL Est GFR (CKD-EPI)AfAm (>60 ml/min/1.73 sqM) Est GFR (CKD-EPI)NonAf (>60 ml/min/1.73 sqM) Glucose (74-99) mg/dL Calcium (8.4-10.2) mg/dL Total Bilirubin (0.2-1.3) mg/dL AST (17-59) U/L ALT (4-49) U/L Alkaline Phosphatase (38-126) U/L Troponin I <0.012 (0.000-0.034) ng/mL Total Protein (6.3-8.2) g/dL Albumin (3.5-5.0) g/dL Serum Alcohol mg/dL Blood Type B Positive Blood Type Confirm B Positive Blood Type Recheck No Previous Record Bld Type Recheck Status CABO Indicated Antibody Screen NEGATIVE Spec Expiration Date 03/20/2020 - 6739 - EKG Data EKG Comments: Normal sinus rhythm, normal ECG. Ventricular rate 79, PA for 146, QT 366. (Chayito Jones) Disposition <Lamont Zimmerman - Last Filed: 03/17/20 08:16> <Ana Laura Stearns - Last Filed: 03/17/20 08:22> - Out of Hospital Transfer - Req. Specs Out of Hospital Transfer - Requested Specifics: Other Emergency Center ([facility]) <Chayito Jones - Last Filed: 03/17/20 08:33> Clinical Impression: Fall, C1 cervical fracture Disposition: OTHER INSTITUTION NOT DEFINED Condition: Stable Referrals: Yvan Barton MD [Primary Care Provider] - 1-2 days
[2020-03-17 07:17] LABS: ALT 28 U/L (4-49); AST 29 U/L (17-59); African American GFR (CKD) >90 (>60 ml/min/1.73 sqM); Albumin 3.9 g/dL (3.5-5.0); Alcohol <10 mg/dL; Alkaline Phosphatase 100 U/L (38-126); Anion Gap 7 mmol/L; Blood Urea Nitrogen 24 mg/dL (9-20); Carbon Dioxide 26 mmol/L (22-30); Chloride 105 mmol/L (98-107); Glucose 157 mg/dL (74-99); Non-African American GFR(CKD) >90 (>60 ml/min/1.73 sqM); Potassium 4.6 mmol/L (3.5-5.1); Sodium 138 mmol/L (137-145); Total Bilirubin 0.4 mg/dL (0.2-1.3); Total Protein 6.9 g/dL (6.3-8.2)
[2020-03-17 07:26] LABS: Prothrombin Time 10.1 sec (9.0-12.0)
[2020-03-17 07:34] LABS: Partial Thromboplastin Time 21.6 sec (22.0-30.0)
--- NOTE | 2020-03-17 07:42 | CT ---
EXAMINATION TYPE: CT brain cspine wo con DATE OF EXAM: 03/17/2020 COMPARISON: None HISTORY: fall down flight of stairs, broke door at bottom, Lt sided neck pain, Rt upper chest pain CT DLP: 1004.[address] of the brain was performed. The ventricles, basal cisterns and sulci overlying the cerebral convexities demonstrate mild enlargem ent. There is no evidence for intracranial hemorrhage or sulcal effacement. There is decreased attenuatio n about the periventricular white matter and deep white matter of both cerebral hemispheres, compatib le with chronic small vessel ischemia. No mass effects are seen. If symptoms persist consider MRI. Osseous calvarium is intact. IMPRESSION: 1. Age related atrophic and chronic small vessel ischemic change without acute intracranial process seen at this time. CT Cervical Spine: Unenhanced CT of the cervical spine was performed with bone and soft tissue window settings submitted . Coronal and sagittal reconstruction is obtained. There is fracture noted to involve the C1 segment on the left involving its anterior and posterior ri ng displacement is noted of approximately 4.2 mm. No additional fractures identified. Scattered dege nerative changes. Ventral and dorsal spondylosis. IMPRESSION: 1. There is fracture noted to involve the C1 segment on the left involving its anterior and posterio r ring displacement is noted of approximately 4.2 mm.
--- NOTE | 2020-03-17 07:53 | CT ---
EXAMINATION TYPE: CT ChestAbdPelvis w con DATE OF EXAM: 03/17/2020 COMPARISON: None HISTORY: fall down flight of stairs, broke door at bottom, Lt sided neck pain, Rt upper chest pain CT DLP: 2923 mGycm CONTRAST: Contrast enhanced Trauma CT of the Chest, Abdomen and Pelvis is performed with IV Contrast, patient i njected with 100 mL of Isovue 300. Chest: LUNGS: There is no evidence for pneumothorax. The lungs are clear and free of focal contusion or ate lectasis. No pleural effusion MEDIASTINUM: Thoracic aorta is of normal caliber without CT evidence to suggest traumatic induced ao rtic injury. No mediastinal fluid or blood. No pericardial fluid or cardia abnormality. HILAR STRUCTURES: No evidence for mass. No hilar adenopathy is appreciated. OTHER: No significant abnormality. OSSEOUS: No displaced osseous fractures identified. CT ABDOMEN AND PELVIS FINDINGS: LIVER/GB: No focal laceration, contusion or subcapsular hemorrhage. No calcified gallstones. Small hemangioma at the dome of the liver. Biliary tree is of normal caliber. PANCREAS: No evidence for transection. No inflammation. No distinct mass. SPLEEN: No focal laceration, contusion or subcapsular hemorrhage. ADRENALS: No hemorrhage. No nodule. No thickening. KIDNEYS/BLADDER: No focal laceration, contusion or subcapsular hemorrhage. No hydronephrosis. No n ephrolithiasis. No distinct renal mass. BOWEL: Bowel is intact. No evidence for pneumoperitoneum. GENITAL ORGANS: No gross abnormality. LYMPH NODES: No greater than 1cm abdominal or pelvic lymph nodes areappreciated. AORTA: No traumatic aortic injury visualized. OSSEOUS STRUCTURES: No displaced fracture seen. OTHER: No evidence for hemoperitoneum. IMPRESSION: 1. No evidence for traumatic injury to the chest. 2. No evidence for traumatic injury to the abdomen or pelvis.
--- NOTE | 2020-03-17 07:56 | CT ---
EXAMINATION TYPE: CT thor lumbar spine w con DATE OF EXAM: 03/17/2020 COMPARISON: None HISTORY: fall down flight of stairs, broke door at bottom, Lt sided neck pain, Rt upper chest pain CT DLP: 2923 mGycm Automated exposure control for dose reduction was used. Unenhanced CT of the thoracic spine was perfo rmed with axial coronal and sagittal images obtained. CONTRAST: Performed with IV Contrast, patient injected with 100 mL of Isovue 300. FINDINGS: There is no evidence for thoracic spine fracture or malalignment. Mild scattered degenerative disc sp johny narrowing and disc bulging. No obvious disc herniation. Well-corticated ossific density anterior superior L4 segment. IMPRESSION: NO EVIDENCE FOR THORACIC SPINE FRACTURE OR MALALIGNMENT.
--- NOTE | 2020-03-17 08:28 | XR ---
EXAMINATION TYPE: XR chest 1V portable DATE OF EXAM: 03/17/2020 COMPARISON: Chest x-ray September 21, 2018. CT earlier today. HISTORY: Fall injury with pain. TECHNIQUE: 2 frontal supine views of the chest are obtained. FINDINGS: Visualized lungs are grossly clear. Somewhat low lung volumes redemonstrated. Cardiac silh ouette size is stable and within normal limits. The osseous structures are intact. IMPRESSION: No acute cardiopulmonary process.
--- NOTE | 2020-03-17 08:36 | XR ---
AP pelvis HISTORY: Trauma and pain Single frontal view of the pelvis submitted. Correlation to CT scan same date. Exam is limited technically. Patient is rotated. Bone mineralization, joint spaces and alignment are maintained. Retained contrast present within the urinary bladder. IMPRESSION: No fracture or dislocation.
--- NOTE | 2020-03-17 08:45 | P.CNOR ---
History of Present Illness - HPI Consult date: 03/17/20 Consult reason: fracture History of present illness: 59 yo male presents to [facility] for evaluation after sustaining a fall off stairs and hitting his head. Pt c/o immediate neck pain. His had a soft neck collar which she placed on his neck and drove him to hospital. He states pain in his neck that does not radiate. Denies any weakness, numbness or tingling. Denies any difficulty breathing or swallowing. Pt has a hx of COPD, remote hx of PE, and DM for which he is on metformin. Denies any f/c/ sob/co ugh/congestion/n/v. Review of Systems 14 points review of systems completed and as stated in HPI or otherwise negative. Past Medical History Past Medical History: COPD, Diabetes Mellitus, Hyperlipidemia, Pneumonia, Pulmonary Embolus (PE), Sleep Apnea/CPAP/BIPAP Additional Past Medical History / Comment(s): COPD, bullous emphysema, previous history of pulmonary embolism back in 2016, obstructive sleep apnea severe maintained on CPAP at a pressure of 10 cm of water, tic douloureux, hyperlipidemia, degenerative arthritis, diverticulosis, chronic back pain History of Any Multi-Drug Resistant Organisms: None Reported Past Surgical History: Appendectomy, Hernia Repair, Tonsillectomy Additional Past Surgical History / Comment(s): tic delaroux surgery, three incisonal hernias repairs and appendectomy for a perforated appendix, ulvula trimmed, deviated septum surgery, colonoscopy. Past Anesthesia/Blood Transfusion Reactions: No Reported Reaction Past Psychological History: Anxiety, Depression Smoking Status: Former smoker Past Alcohol Use History: Occasional Past Drug Use History: None Reported - Past Family History Father Additional Family Medical History / Comment(s): bronchitis pleuricy. dad's mom had leukemia Mother Additional Family Medical History / Comment(s): emphysemia Medications and Allergies Home Medications Medication Instructions Recorded Confirmed Type Cholecalciferol [Vitamin D3 (25 1,000 unit PO BID 01/11/15 08/11/17 History Mcg = 1000 Iu)] Montelukast [Singulair] 10 mg PO HS 01/11/15 08/11/17 History Simvastatin [Zocor] 20 mg PO HS 01/11/15 08/11/17 History Vit C/E/Zn/Coppr/Lutein/Zeaxan 1 cap PO BID 01/11/15 08/11/17 History [Preservision Areds 2 Softgel] Acidophilus Pearls 1 cap PO DAILY 04/26/16 08/11/17 History Citalopram Hydrobromide [CeleXA] 40 mg PO DAILY 04/26/16 08/11/17 History Alyssa C 1,000 mg PO BID 04/26/16 08/11/17 History Multivit-Min/FA/Lycopen/Lutein 1 tab PO DAILY 04/26/16 08/11/17 History [Centrum Silver Tablet] Rivaroxaban [Xarelto] 20 mg PO DAILY 04/26/16 08/11/17 History Albuterol Inhaler (Mhu) [Ventolin 1 puff INHALATION RT-Q6H PRN 08/03/17 08/11/17 History Hfa Inhaler (Mhu)] Glucosam/Elijah-Msm1/C/Nikunj/Bosw 1 tab PO BID 08/03/17 08/11/17 History [Glucosamine-Chondroitin Tablet] Psyllium Husk [Metamucil] 0.8 gm PO DAILY 08/03/17 08/11/17 History Testosterone Cypionate 200 mg IM Q14D 08/03/17 08/11/17 History [Depo-Testosterone] Tiotropium 18 Mcg/Puff [Spiriva] 1 cap INHALATION RT-DAILY 08/03/17 08/11/17 His tory Budesonide-Formot 160-4.5 Mcg 2 puff INHALATION RT-BID #1 inh 08/09/17 08/11/17 Rx [Symbicort 160-4.5 Mcg Inhaler] Nystatin 100,000 Unit/ml Susp 500,000 unit PO QID #28 cup 08/09/17 08/11/17 Rx [Mycostatin Oral Susp] Pantoprazole [Protonix] 40 mg PO AC-BRKFST #15 tablet. 08/09/17 08/11/17 Rx Allergies Allergy/AdvReac Type Severity Reaction Status Date / Time adhesive tape Allergy Rash/Hives Verified 03/17/20 06:38 levofloxacin [From Levaquin] Allergy Rash/Hives Verified 03/17/20 06:38 Physical Examination Osteopathic Statement: *. No significant issues noted on an osteopathic structural exam other than those noted in the History and Physical/Consult. GEN: AOX3, NAD VSS Inspection: Patient is currently in a hard c-collar. He is at about 30 of head up. He has no lesions skin irritation or other issues noted around the neck area. He does have some abrasions to his right and left middle fingers. He has some bruising over his lower extremities from the fall. He has no pain in the remainder of his joints shoulders elbows wrists and hands hips knees and ankles all have full painless active and passive range of motion. Palpation: The patient is tender to palpation over the occipital condyles as well as the posterior neck musculature. Paraspinal as well as centrally. Patient has painful range of motion of the neck in any direction. No pain over his clavicles. Motor: 5/5 shoulder abd/EF/EE/WF/intrinsics bilaterally 5/5 DF/PF/EHL/FHL/HF/KE/KF bilaterally Reflexes: 2/4 DTR all upper and LE Sensation intact to light touch in C5-T1 as well as L2-S1 distribution Mojica's: Negative bilaterally Clonus: None Babinski: Negative bilaterally Body habitus is obese No head injury notable no hematomas. Again full passive and active range of motion of all upper extremity and lower extremity joints without pain at this time. Results CT head and neck is reviewed this demonstrates an AO C1 ring Type A/B fracture (Donny) and lateral mass fracture with displacement and doubtful JOSI integrity. There is no OA instability but AA stability is questionable due to displacement of lateral mass and ANAI of approximately 2 mm. - Labs Labs: Abnormal Lab Results - Last 24 Hours (Table) 03/17/20 03/17/20 03/17/20 Range/Units 06:56 06:56 06:56 RDW 15.9 H (11.5-15.5) % APTT 21.6 L (22.0-30.0) sec BUN 24 H (9-20) mg/dL Creatinine 0.64 L (0.66-1.25) mg/dL Glucose 157 H (74-99) mg/dL H & H 03/17/20 Range/Units 06:56 Hgb 14.8 (13.0-17.5) gm/dL Hct 46.5 (39.0-53.0) % Coagulation 03/17/20 Range/Units 06:56 INR 1.0 (<1.2) Result Diagrams: 03/17/20 06:56 03/17/20 06:56 Assessment and Plan Assessment: 1. C1 Donny fracture (AO type A/B) with questionable JOSI stability. 2. Complex medical history 3. S/P ffs w/BHT Plan: 1. Transfer to [place] for trauma admission and work up 2. Hard C collar and c spine precautions 3. Obtain CT Angio-Seal spine as well as MRI C-spine 4. Pain control as needed 5. Medical clearance for operative intervention on 03/19/2020
[2020-03-17 08:47] VITALS: BP 135/79
[2020-03-17 09:28] LABS: Appearance,Urine Clear (Clear); Bilirubin,Urine Negative (Negative); Blood,Urine Negative (Negative); Color,Urine Yellow; Glucose,Urine (UA) Negative (Negative); Ketones,Urine Negative (Negative); Leukocyte Esterase,Urine Negative (Negative); Nitrite,Urine Negative (Negative); Protein,Urine Negative (Negative); Urobilinogen,Urine <2.0 mg/dL (<2.0)
[2020-03-17 09:39] LABS: Amphetamine Screen,Urine Not Detected (NotDetected); Barbiturate Screen,Urine Detected (NotDetected); Benzodiazepines Screen,Urine Not Detected (NotDetected); Cocaine Screen,Urine Not Detected (NotDetected); Methadone Screen, Urine Not Detected (NotDetected); Opiate Screen,Urine Detected (NotDetected); Oxycodone Screen, Urine Not Detected (NotDetected); Phencyclidine Screen,Urine Not Detected (NotDetected); Tricyclic Antidepressant,Urine Not Detected (NotDetected); Urn Cannabinoid Scrn Not Detected (NotDetected)
== END 2020-03-17 09:16 | disposition other institution (70) ==
LOC: EC 06:26
DX: S12.000A Unspecified displaced fracture of first cervical vertebra, initial encounter for closed fracture (principal); J44.9 Chronic obstructive pulmonary disease, unspecified; E11.9 Type 2 diabetes mellitus without complications; E78.5 Hyperlipidemia, unspecified; G47.33 Obstructive sleep apnea (adult) (pediatric); F41.9 Anxiety disorder, unspecified; F32.9 Major depressive disorder, single episode, unspecified; Z99.89 Dependence on other enabling machines and devices; Z79.51 Long term (current) use of inhaled steroids; Z79.899 Other long term (current) drug therapy; Z79.01 Long term (current) use of anticoagulants; Z88.1 Allergy status to other antibiotic agents; Z91.048 Other nonmedicinal substance allergy status; Z87.891 Personal history of nicotine dependence; Z90.49 Acquired absence of other specified parts of digestive tract; Z86.711 Personal history of pulmonary embolism; W01.198A Fall on same level from slipping, tripping and stumbling with subsequent striking against other object, initial encounter
CPT/HCPCS: 36415; 93005; 86900; 86901; 80053; 84484; 85025; 85610; 85730; 86850; 81003; 80306; 80320; 72170; 71045; 72129; 72125; 72132; 70450; 71260; 74177; 99291; 96374; 96376; J1170; Q9967

== ENCOUNTER → 2020-06-25 | Outpatient (CLI) | payer BC ==
--- NOTE | 2020-06-25 21:38 | CT ---
EXAMINATION TYPE: CT cervical spine wo con DATE OF EXAM: 06/25/2020 COMPARISON: 03/17/2020 HISTORY: Follow up after sx CT DLP: 677 mGycm CONTRAST: None CT of the cervical spine is performed in the axial plane at 2 mm thick sections. Reconstructed image s in the coronal, and sagittal plane are reviewed on the computer. Postsurgical changes are within the occipital region extending posterior to the upper cervical spine with pedicle screws. The previous C1 fracture on the right remains present. There is nonunion of the fracture. There is straightening of the vertebral body alignment. There is disc space narrowing present throughout the cervical spine may be slightly greater in the up per cervical spine. Vertebral body heights are preserved. No spinal canal stenosis is evident Vertebral joint hypertrophy is present at C3-4 on the left with severe left foraminal narrowing. Josselyn re left foraminal stenosis is also present at C4-5 due to uncovertebral joint hypertrophy. Moderate t o severe right foraminal narrowing is present at the C4-5 level. Moderate to severe bilateral foramin al stenosis C5-6 is present due to uncovertebral joint hypertrophy. IMPRESSIONS: 1. Nonunion of the C1 fracture. 2. Fixation from the occiput through the C6 4 level is present. 3. Severe foraminal narrowing present upper cervical spine secondary to uncovertebral joint hypertrop hy.
== END | disposition home or self-care (01) ==
LOC: RADCTMAIN 14:50
PROVIDERS: ATTEND Orthopaedic Surgery
DX: S12.000A Unspecified displaced fracture of first cervical vertebra, initial encounter for closed fracture (principal); M48.02 Spinal stenosis, cervical region; Z88.1 Allergy status to other antibiotic agents
CPT/HCPCS: 72125

== ENCOUNTER → 2020-12-22 | Outpatient (CLI) | payer BC ==
[2020-12-23 01:23] LABS: Basophils # (A) 0.09 X 10*3/uL (0.00-0.10); Basophils % (A) 0.8 %; Eosinophils # (A) 0.12 X 10*3/uL (0.04-0.35); Eosinophils % (A) 1.1 %; HCT 45.7 % (39.6-50.0); HGB 14.9 g/dL (13.0-17.0); Lymphocytes # (A) 2.43 X 10*3/uL (0.90-5.00); Lymphocytes % (A) 22.4 %; MCH 29.7 pg (27.0-32.0); MCHC 32.6 g/dL (32.0-37.0); Mean Platelet Volume 10.8 fL (9.5-12.2); Monocytes # (A) 0.71 X 10*3/uL (0.20-1.00); Monocytes % (A) 6.5 %; Neutrophils # (A) 7.41 X 10*3/uL (1.80-7.70); Neutrophils % (A) 68.5 %; Platelet Count 178 X 10*3/uL (140-440); RBC 5.02 X 10*6/uL (4.40-5.60); RDW 17.4 % (11.5-14.5); WBC 10.84 X 10*3/uL (4.50-10.00)
[2020-12-23 04:25] LABS: Erythrocyte Sedimentation Rate 15 mm/Hr (0-20)
[2020-12-23 05:17] LABS: African American GFR (CKD) 114.1 (60.0-200.0); Albumin 4.4 g/dL (3.80-4.90); Albumin/Globulin Ratio 1.69 (1.60-3.17); Anion Gap 6.2 mmol/L (4.00-12.00); C Reactive Protein 5.2 mg/dL (0.0-0.8); Calcium 9.3 mg/dL (8.7-10.3); Carbon Dioxide 29.8 mmol/L (21.6-31.8); Globulin 2.6 g/dL (1.6-3.3); Magnesium 1.8 mg/dL (1.5-2.4); Non-African American GFR(CKD) 98.5 (60.0-200.0); Potassium 4.3 mmol/L (3.5-5.5); Total Bilirubin 0.4 mg/dL (0.3-1.2)
== END | disposition home or self-care (01) ==
LOC: LABWHC1 15:47
PROVIDERS: ATTEND Family Medicine
DX: R06.00 Dyspnea, unspecified (principal)
CPT/HCPCS: 36415; 80053; 83615; 83735; 84145; 85025; 85652; 86140; 87040

== ENCOUNTER → 2020-12-22 | Outpatient (CLI) | payer BC ==
--- NOTE | 2020-12-22 15:54 | XR ---
EXAMINATION TYPE: XR chest 2V DATE OF EXAM: 12/22/2020 COMPARISON: 03/17/2020 TECHNIQUE: PA and lateral views submitted. HISTORY: Shortness of breath FINDINGS: The lungs are clear and there is no pneumothorax, pleural effusion, or focal pneumonia. Cardiomegaly . Coarsened interstitium stable. Mild hyperinflation correlate for asthma or COPD. Biapical pleural t hickening. IMPRESSION: 1. Stable mild cardiomegaly and coarsened interstitium correlate for chronic interstitial lung diseas e.
== END | disposition home or self-care (01) ==
LOC: RADXRMAIN 15:22
PROVIDERS: ATTEND Nurse Practitioner
DX: R91.8 Other nonspecific abnormal finding of lung field (principal); I51.7 Cardiomegaly
CPT/HCPCS: 71046

== ENCOUNTER → 2020-12-23 | Outpatient (CLI) | payer BC ==
--- NOTE | 2020-12-23 18:07 | CT ---
EXAMINATION TYPE: CT angio chest DATE OF EXAM: 12/23/2020 COMPARISON: 03/17/2020 HISTORY: SOB, hx of PE CT DLP: 1616 mGycm Automated exposure control for dose reduction was used. CONTRAST: Performed with IV Contrast, patient injected with 100 mL of Isovue 370. Images obtained from the thoracic inlet to the diaphragm with IV contrast. There are 3-D post process ed images. The lungs are clear of consolidation. There is no evidence of a pulmonary mass. There is no mediastin al adenopathy. Thoracic aorta is intact. There is no aneurysm or dissection. There are no hilar zack s. There is normal contrast opacification of the pulmonary arteries. There are no filling defects. Heart size is normal. There is no pericardial effusion. There is some fatty infiltration of the liver . There are some emphysematous changes at the lung apices. Thoracic spine is intact. There is no compression significant deformity. There is 5% wedging of T4 ve rtebra. There is similar change at T2 vertebra. IMPRESSION: No evidence of pulmonary embolism. Mild emphysema. Stable minimal wedging of T2 and T4 vertebra. No acute lung disease.
== END | disposition home or self-care (01) ==
LOC: RADCTMAIN 17:18
PROVIDERS: ATTEND Nurse Practitioner
DX: J43.9 Emphysema, unspecified (principal)
CPT/HCPCS: 71275; Q9967

== ENCOUNTER 2021-04-14 16:34 | Emergency (ER) | payer BC ==
[2021-04-14 16:51] VITALS: TEMP 98.5
--- NOTE | 2021-04-14 19:23 | ED ---
URI HPI - General Chief Complaint: Upper Respiratory Infection Stated Complaint: SOB, headache Time Seen by Provider: 04/14/21 18:56 Source: patient, RN notes reviewed Mode of arrival: ambulatory Limitations: no limitations - History of Present Illness Initial Comments: This a 60-year-old male presents emergency Department with chief complaint of possible COVID-19. Patient states that multiple people his workup test positive reasonably. Patient states he's had cough congestion headache bodyaches. Patient states he does have COPD he's been doing breathing treatments. No chest pain no abdominal pain no leg swelling or leg pain all usual. - Related Data Home Medications Medication Instructions Recorded Confirmed Cholecalciferol [Vitamin D3 (25 1,000 unit PO BID 01/11/15 03/17/20 Mcg = 1000 Iu)] Montelukast [Singulair] 10 mg PO HS 01/11/15 03/17/20 Vit C/E/Zn/Coppr/Lutein/Zeaxan 1 cap PO BID 01/11/15 03/17/20 [Preservision Areds 2 Softgel] Citalopram Hydrobromide [CeleXA] 40 mg PO DAILY 04/26/16 03/17/20 Alyssa C 1,000 mg PO BID 04/26/16 03/17/20 Psyllium Husk [Metamucil] 0.8 gm PO BID 08/03/17 03/17/20 Testosterone Cypionate 200 mg IM Q21D 08/03/17 03/17/20 [Depo-Testosterone] Albuterol Inhaler [Ventolin Hfa 2 puff INHALATION RT-QID PRN 03/17/20 03/17/20 Inhaler] Atorvastatin [Lipitor] 20 mg PO HS 03/17/20 03/17/20 Butalb/Acetaminophen/Caffeine 1 - 2 cap PO Q4H PRN 03/17/20 03/17/20 [Fioricet 50-300-40 mg Capsule] Cyanocobalamin (Vitamin B-12) 1,000 mcg PO DAILY 03/17/20 03/17/20 [Vitamin B-12] Lactobacillus Acidophilus 1 tab PO DAILY 03/17/20 03/17/20 [Acidophilus] Metoprolol Tartrate [Lopressor] 25 mg PO DAILY 03/17/20 03/17/20 Multivit-Min/FA/Lycopen/Lutein 1 tab PO DAILY 03/17/20 03/17/20 [Centrum Silver Men Tablet] [place]-3 Fatty Acids/Fish Oil [Fish 2 cap PO BID 03/17/20 03/17/20 Oil 1,000 mg Softgel] Omeprazole 20 mg PO DAILY 03/17/20 03/17/20 buPROPion XL [Wellbutrin Xl] 150 mg PO DAILY 03/17/20 03/17/20 metFORMIN HCL [Glucophage] 1,000 mg PO BID 03/17/20 03/17/20 Previous Rx's Medication Instructions Recorded Budesonide-Formot 160-4.5 Mcg 2 puff INHALATION RT-BID #1 inh 08/09/17 [Symbicort 160-4.5 Mcg Inhaler] Allergies Allergy/AdvReac Type Severity Reaction Status Date / Time adhesive tape Allergy Rash/Hives Verified 03/17/20 08:51 levofloxacin [From Levaquin] Allergy Rash/Hives Verified 03/17/20 08:51 Review of Systems ROS Statement: Those systems with pertinent positive or pertinent negative responses have been documented in the HPI. ROS Other: All systems not noted in ROS Statement are negative. Past Medical History Past Medical History: COPD, Diabetes Mellitus, Hyperlipidemia, Pneumonia, Pulmonary Embolus (PE), Sleep Apnea/CPAP/BIPAP Additional Past Medical History / Comment(s): COPD, bullous emphysema, previous history of pulmonary embolism back in 2016, obstructive sleep apnea severe maintained on CPAP at a pressure of 10 cm of water, tic [place], hyperlipidemia, degenerative arthritis, diverticulosis, chronic back pain History of Any Multi-Drug Resistant Organisms: None Reported Past Surgical History: Appendectomy, Hernia Repair, Tonsillectomy Additional Past Surgical History / Comment(s): tic [place]aroux surgery, three incisonal hernias repairs and appendectomy for a perforated appendix, ulvula trimmed, deviated septum surgery, colonoscopy. Past Anesthesia/Blood Transfusion Reactions: No Reported Reaction Past Psychological History: Anxiety, Depression Smoking Status: Former smoker Past Alcohol Use History: Occasional Past Drug Use History: None Reported - Past Family History Father Additional Family Medical History / Comment(s): bronchitis pleuricy. dad's mom had leukemia Mother Additional Family Medical History / Comment(s): emphysemia General Exam Limitations: no limitations General appearance: alert, in no apparent distress Head exam: Present: atraumatic, normocephalic, normal inspection Eye exam: Present: normal appearance, PERRL, EOMI. Absent: scleral icterus, conjunctival injection, periorbital swelling ENT exam: Present: normal exam, normal oropharynx, mucous membranes moist Neck exam: Present: normal inspection, full ROM. Absent: tenderness, meningismus, lymphadenopathy Respiratory exam: Present: wheezes. Absent: normal lung sounds bilaterally, respiratory distress, rales, rhonchi, stridor Cardiovascular Exam: Present: regular rate, normal rhythm, normal heart sounds. Absent: systolic murmur, diastolic murmur, rubs, gallop, clicks Neurological exam: Present: alert, oriented X3, CN II-XII intact, reflexes normal. Absent: motor sensory deficit Skin exam: Present: warm, dry, intact, normal color. Absent: rash Course Vital Signs 04/14/21 04/14/21 16:48 19:51 Temperature 98.5 F Pulse Rate 78 79 Respiratory 19 18 Rate Blood Pressure 168/88 129/82 O2 Sat by Pulse 92 L Oximetry Medical Decision Making - Medical Decision Making 60-year-old male presented for possible COVID-19. Patient is negative for COVID-19 patient has mild COPD exacerbation be discharged stable condition to parameters discussed. - Lab Data Lab Results 04/14/21 Range/Units 16:51 Coronavirus (PCR) Not Detected (Not Detectd) Disposition Clinical Impression: COPD (chronic obstructive pulmonary disease), Upper respiratory infection Disposition: HOME SELF-CARE Condition: Stable Instructions (If sedation given, give patient instructions): Upper Respiratory Infection (ED) Additional Instructions: Please return to the Emergency Department if symptoms worsen or any other concerns. Is patient prescribed a controlled substance at d/c from ED?: No Referrals: Yvan Barton MD [Primary Care Provider] - 1-2 days Time of Disposition: 20:07
--- NOTE | 2021-04-14 19:53 | XR ---
EXAMINATION TYPE: XR chest 2V DATE OF EXAM: 04/14/2021 COMPARISON: 12/22/2020 HISTORY: Cough TECHNIQUE: 2 views FINDINGS: Heart and mediastinum are normal. Lungs are clear. Diaphragm is normal. Bony thorax is inta ct. IMPRESSION: Normal chest. No change.
[2021-04-14 19:54] VITALS: BP 129/82; PULSE 79; RESP 18
[2021-04-14] MEDS ORDERED: AZITHROMYCIN 250 MG TAB PO STA (20:05)
[2021-04-14] MEDS ORDERED: predniSONE 50 MG TAB PO STA (20:05)
== END 2021-04-14 21:20 | disposition home or self-care (01) ==
LOC: EC 16:34
DX: J44.9 Chronic obstructive pulmonary disease, unspecified (principal); J06.9 Acute upper respiratory infection, unspecified; E11.9 Type 2 diabetes mellitus without complications; E78.5 Hyperlipidemia, unspecified; Z79.899 Other long term (current) drug therapy; Z20.822 Contact with and (suspected) exposure to COVID-19; Z79.84 Long term (current) use of oral hypoglycemic drugs; Z91.09 Other allergy status, other than to drugs and biological substances; Z88.1 Allergy status to other antibiotic agents; Z87.891 Personal history of nicotine dependence
CPT/HCPCS: 87635; 71046; 99285; J7512

== ENCOUNTER → 2021-08-05 | Outpatient (CLI) | payer BC ==
[2021-08-05 10:12] LABS: African American GFR (CKD) >90 (>60 ml/min/1.73 sqM); Blood Urea Nitrogen 20 mg/dL (9-20); Non-African American GFR(CKD) >90 (>60 ml/min/1.73 sqM)
--- NOTE | 2021-08-05 10:58 | CT ---
EXAMINATION TYPE: CT angio chest DATE OF EXAM: 08/05/2021 COMPARISON: CT dated 12/23/2020 HISTORY: Dyspnea CT DLP: 586.20 mGy.cm. Automated Exposure Control for Dose Reduction was Utilized. TECHNIQUE AND CONTRAST: CTA scan of the thorax is performed with IV Contrast, patient injected with 100 mL of Isovue 370, pul [facility] angiogram protocol. MIP Images are created on an independent workstation and reviewed. FINDINGS: No definite filling defect within the pulmonary trunk, main pulmonary arteries, lobar and segmental b ranches to suggest pulmonary embolism. Subsegmental branches are suboptimally assessed. The pulmonary trunk measures 3.6 cm with more focal dilatation of the proximal portion of the pulmonary trunk river uring up to 4.5 cm, consistent with a small pulmonary trunk aneurysm. The ascending aorta measures 4. 1 cm. Scattered arterial atherosclerotic calcifications. No gross cardiomegaly or pericardial effusio n. Persistent COPD changes with paraseptal emphysema mainly involving the upper and midlung zones. Bilat eral peripheral pulmonary subpleural reticulations. No suspicious lung lesion or definite lung nodule . Patent trachea and main bronchi. No pleural effusion. No pathologically enlarged lymph nodes in the chest. Suspected hepatic steatosis. No aggressive bone lesion. IMPRESSION: No evidence of pulmonary embolism. 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 Persistent COPD changes. Other incidental findings as described above.
== END | disposition home or self-care (01) ==
LOC: RADCTMAIN 08:58
PROVIDERS: ATTEND Internal Medicine Critical Care Medicine
DX: J44.9 Chronic obstructive pulmonary disease, unspecified (principal); I28.1 Aneurysm of pulmonary artery
CPT/HCPCS: 82565; 84520; 71275; 36415; Q9967

== ENCOUNTER → 2021-09-15 | Outpatient (CLI) | payer BC ==
--- NOTE | 2021-10-07 15:18 | CA ---
Transthoracic Echo Report Name: Brandon Rosen Age: 61 Gender: M : 1960 Exam Date: 09/16/2021 14:17 Exam Location: [place] [facility] Ht (in): Wt (lb): Ordering Physician: Savita Carrillo MD Attending/Referring Phys: Computer Lab Aide Procedure CPT: Indications: I10, Hypertension Cardiac Hx: Technical Quality: Fair Contrast 1: Total Dose (mL): Contrast 2: Total Dose (mL): MEASUREMENTS (Male / Female) Normal Values 2D ECHO LV Diastolic Diameter PLAX 4.4 cm 4.2 - 5.9 / 3.9 - 5.3 cm LV Systolic Diameter PLAX 3.2 cm IVS Diastolic Thickness 1.7 cm 0.6 - 1.0 / 0.6 - 0.9 cm LVPW Diastolic Thickness 1.6 cm 0.6 - 1.0 / 0.6 - 0.9 cm LV Relative Wall Thickness 0.8 M-MODE Aortic Root Diameter MM 4.1 cm AV Cusp Separation MM 1.9 cm DOPPLER MV Peak Velocity 50.6 cm/s MV Peak Gradient 1.0 mmHg TV Peak Velocity 213.1 cm/s FINDINGS Left Ventricle Low normal left ventricular systolic function with no obvious regional wall motion abnormalities. Left ventricular cavity size normal. Moderately increased left ventricular wall thickness. Left ventricular ejection fraction is estimated at 50%. Right Ventricle Normal right ventricular size and function. Right ventricular systolic pressure within normal limits. Right Atrium Normal right atrial size. Left Atrium Normal left atrial size. No evidence for an atrial septal defect. Mitral Valve No mitral stenosis, regurgitation or prolapse. Aortic Valve Trileaflet aortic valve. Aortic valve sclerosis. No aortic regurgitation. Tricuspid Valve Mild tricuspid regurgitation. Pulmonic Valve Trace pulmonic regurgitation. Pericardium No pericardial effusion. Aorta Normal size aortic root and proximal ascending aorta. CONCLUSIONS Low-normal left ventricular ejection fraction 50%. Moderate LVH. No mitral regurgitation. Mild tricuspid regurgitation. Previewed by: Dr. Severo Trevizo DO (Electronically Signed) Final Date: 19 Sep 2021 08:34
== END | disposition home or self-care (01) ==
LOC: RADECHMAIN 13:45
PROVIDERS: ATTEND Internal Medicine Interventional Cardiology
DX: I10 Essential (primary) hypertension (principal); I08.8 Other rheumatic multiple valve diseases
CPT/HCPCS: 93306

== ENCOUNTER 2021-11-13 07:32 | Day surgery (SDC) | payer BC ==
[2021-11-13 08:44] VITALS: RESP 16; TEMP 98.8
[2021-11-13] MEDS ORDERED: diazePAM 5 MG TAB PO STA (08:55)
[2021-11-13 12:44] VITALS: BP 131/77
--- NOTE | 2021-11-13 13:22 | FL ---
PROCEDURE: FL cervical myelogram DATE: 11/13/2021 CLINICAL HISTORY: 61-year-old male M54.10, right-sided radiculopathy COMPLICATIONS: None SEDATION: 5 mg oral Valium administered by radiology nursing. The patient and the patient's vital signs were m onitored by qualified independent radiology personnel. TECHNIQUE: The procedure and potential risks were explained to patient and an informed consent was obtained with teach back. Site and side was verified. A time out was performed. The patient was placed prone on the fluoroscopy table and the L2-L4 level was localized and the skin was marked and was prepped and draped in the usual sterile fashion. Lidocaine was used for local anesthesia. Utilizing fluoroscopic guidance a 22-gauge 5 inch spinal nee dle was placed through the skin and into the subarachnoid space. Clear CSF was visualized. Subsequently, a total of 10 mL Isovue-M 300 was administered into the subar achnoid space during fluoroscopic control. The tip was manipulated to promote contrast passage to the cervical spine level. The patient tolerated the procedure well and was sent to CT in satisfactory condition. The estimated blood loss was minimal. The patient's condition was unchanged following the procedure. Fluoroscopy time: 1 minute 1 second Total images: 12 IMPRESSION: Successful myelogram injection via lumbar access for CT cervical spine to be performed subsequently.
[2021-11-13 14:10] VITALS: PULSE 82
--- NOTE | 2021-11-13 14:53 | CT ---
EXAMINATION TYPE: CT cervical spine w con DATE OF EXAM: 11/13/2021 COMPARISON: CT 06/25/2020 HISTORY: 61-year-old M54.10 male right-sided Radiculopathy TECHNIQUE: Contiguous axial scanning of the cervical spine performed after myelogram injection of 10 ML mL of Isovue M300. Coronal/sagittal reconstructions performed. CT DLP: 1381.2 mGycm Automated exposure control for dose reduction was used. FINDINGS: Post surgical change of posterior occipital cervical fusion extending down to the C4 level with trans pedicular screws from C2 through C4. The patient's C1 fracture appears to have healed. No craniocervical junction abnormally, predental space widening, or prevertebral soft tissue swelling . Interval development of partial interbody ankylosis across C2-C3 some partial fusion across the right posterior elements at C3-C4. Moderate distention of the degenerative change mid to lower cervical spine reveal reversal of the nor mal cervical lordosis and preserved alignment. Multilevel uncovertebral joint and facet arthropathy. Disc osteophyte complex at C4-C5 impresses onto the ventral thecal sac minimally flattening the ventr al cord and narrowing the AP canal dimension to 1.0 cm. No alan cord compression. No significant spinal canal stenosis at any level. At C2-C3, changes result in mild right neuroforaminal narrowing. At C3-C4, no significant neural foraminal narrowing. At C4-C5, there is severe left and moderate right neuroforaminal stenosis. At C5-C6, moderate to severe right and moderate left neuroforaminal stenosis. At C6/C7, moderate to severe right and moderate left neuroforaminal stenosis. At C7-T1, there is moderate to severe right neuroforaminal stenosis. Emphysematous changes in the visualized upper lungs. No surgical material along the medial left upper lobe. IMPRESSION: 1. MODERATE MULTILEVEL SPONDYLOTIC CHANGE. REVERSAL OF THE NORMAL CERVICAL LORDOSIS BUT WITH PRESERVE D ALIGNMENT. 2. CRANIOCERVICAL FUSION FROM THE POSTERIOR OCCIPUT DOWN THROUGH C4. THE PATIENT'S LEFT-SIDED C1 FRAC TURES HAVE HEALED. 3. MILD OVERALL SPINAL CANAL STENOSIS AT C5-C6 SECONDARY TO DISC OSTEOPHYTE COMPLEX. NO SIGNIFICANT S TERI CANAL STENOSIS SEEN. 4. VARIABLE NEUROFORAMINAL STENOSES OUTLINED ABOVE, MODERATE TO SEVERE AT SOME LEVELS SUCH ON T HE RIGHT AT C5-C6, C6-C7, C7-T1.
== END 2021-11-13 13:58 | disposition home or self-care (01) ==
LOC: RADPROMAIN 07:32
PROVIDERS: ATTEND Orthopaedic Surgery
DX: M54.12 Radiculopathy, cervical region (principal); J44.9 Chronic obstructive pulmonary disease, unspecified; J42 Unspecified chronic bronchitis; Z86.711 Personal history of pulmonary embolism; E78.00 Pure hypercholesterolemia, unspecified; F32.A Depression, unspecified; I87.2 Venous insufficiency (chronic) (peripheral); Z87.81 Personal history of (healed) traumatic fracture; Z98.890 Other specified postprocedural states; E11.9 Type 2 diabetes mellitus without complications; G47.30 Sleep apnea, unspecified; J43.8 Other emphysema; Z97.3 Presence of spectacles and contact lenses; M25.50 Pain in unspecified joint; M25.60 Stiffness of unspecified joint, not elsewhere classified; Z79.84 Long term (current) use of oral hypoglycemic drugs; Z79.51 Long term (current) use of inhaled steroids; Z79.52 Long term (current) use of systemic steroids; Z79.899 Other long term (current) drug therapy; Z88.1 Allergy status to other antibiotic agents
CPT/HCPCS: 62302; 72126; Q9967

== ENCOUNTER → 2021-12-09 | Outpatient (CLI) | payer BC ==
[2021-12-09 13:23] VITALS: BP 120/79; PULSE 77; RESP 18; TEMP 99.1
--- NOTE | 2021-12-09 13:40 | P.PAINPG ---
PQRS Measure Charge Sheet Comment: HISTORY OF PRESENT ILLNESS: 61 yr old male w at side as a referral from [facility] presents today with severe and chronic neck pain secondary to DDD, spinal stenosis, neuroforaminal stenoses and facet arthropathy for evaluation. Pt states his cervical pain is mostly on the R side w radiation towards the RUE. It is 2/10 in intensity but escalates as high as 7/10 w provocation. It is constant, sharp in character in the neck with numbness in RUE. Provoked with overhead reaching and lifting. Palliated with PT x 10 weeks in October 2021, massage integrated with PT, heat, ice, (Mobic, Tylenol), topicals, repositioning and rest. States he has an EMG scheduled in 1 week PMH: Asthma, COPD, Hyperlipidemia, Anxiety PSH: Appendectomy, Tonsillectomy, Hernia Repair x 3, Tic [place], ORIF w C1 fusion (Mar 2020), C2-C4 Fusion SH: Former tobacco user, Occasional ETOH use, No illicit drug use FH: Non contributory All: See list Meds: See list REVIEW OF ORGAN SYSTEMS: CONSTITUTIONAL: No fevers or chills. No recent weight loss. NEUROLOGICAL: + numbness and tingling along the distal extremities. No seizure disorders or headaches. MUSCULOSKELETAL: + pain PSYCHIATRIC: Denies current depression or suicidal though ts. Physical Examinations : Constitutional : Cooperative , not in acute distress . Neurologic : Cranial nerve II to XII intact. No focal neurological deficits. Psychiatric : alert & oriented x 3. Matching mood & appropriate affect. Judgment & insight intact. Musculoskeletal : Cervical Spine Motor strength in the deltoid and biceps: Normal right side. Normal Left side Motor strength biceps and the wrist extensors: Normal right side . Normal left side Motor strength in the triceps muscle: Normal right side. Normal left side Deep tendon reflexes: Normal at the biceps. Normal at Brachioradialis. Normal at triceps Vertebral body tenderness to deep palpation over C4, C5 Cervical facet loading test: positive bilaterally Spurling test: positive bilaterally Neck distraction test: positive bilaterally Dexter sign: positive bilaterally Lumbar spine Motor strength lower extremities ,thigh and legs 5/5 Right side , 5/5 Left side Deep tendon reflexes : Normal Knee Jerk. Normal Ankle Jerk Vertebral body tenderness over Lumbar facet Loading Test: positive Right / positive Left Range of motion of the lumbar spine Flexion 30 degrees, extension 10 degrees Straight Leg Raise test: Left/ Right positive at degree Brooklynn test: positive right / positive left. Severe tenderness over the Sacroiliac joint on the Right / Left sides Gaenslen test: positive bilaterally Seated flexion test: positive bilaterally. Sacral spine : Severe tenderness over the Sacroiliac joint: right side / left side Range of motion: Flexion of the lumbar spine <60 degrees Range of motion: Extension of the lumbar spine <20 degrees Gaenslen's Test positive Casey's Test positive Brooklynn test: positive right side / left side Thigh Thrust Test Sacral Thrust Test Imaging: CT with contrast of the cervical spine from 06/25/20 reviewed Assessment/ Plan : Cervical stenosis, Cervical spondylosis Recommendation of R TFESI C4-C5. May need a series of injections, up to 3 within a 6 mo time frame, for optimal pain relief. Risks, benefits of procedure discussed and patient verbalized understanding. Denies aspirin or anti- coag ulant use and admits to a medical history of diabetes. Protocol for discontinuation/ continuation of medications delmi procedure discussed. All questions answered. I have spent greater than 30 minutes on patient care today. Dr St was available by phone for the evaluation of this patient. The time was used to review the medical records including relevant urine studies and Prescription history (MAPs), review of the available imaging, evaluation and examination of the patient, coordination of care with the medical staff and if applicable referring physicians, as well as creation of the medical record PQRS Narrative: Smoking Status Former smoker Home Medications: Ambulatory Orders Cholecalciferol [Vitamin D3 (25 Mcg = 1000 Iu)] 1,000 unit PO BID 01/11/15 Montelukast [Singulair] 10 mg PO HS 01/11/15 Vit C/E/Zn/Coppr/Lutein/Zeaxan [Preservision Areds 2 Softgel] 1 cap PO BID 09/20 Citalopram Hydrobromide [CeleXA] 40 mg PO DAILY 04/26/16 Alyssa C 1,000 mg PO BID 04/26/16 Psyllium Husk [Metamucil] 0.8 gm PO BID 08/03/17 Testosterone Cypionate [Depo-Testosterone] 200 mg IM Q21D 08/03/17 Cyanocobalamin (Vitamin B-12) [Vitamin B-12] 1,000 mcg PO DAILY 03/17/20 Metoprolol Tartrate [Lopressor] 25 mg PO DAILY 03/17/20 Multivit-Min/FA/Lycopen/Lutein [Centrum Silver Men Tablet] 1 tab PO DAILY 03/17/20 [place]-3 Fatty Acids/Fish Oil [Fish Oil 1,000 mg Softgel] 1 - 2 cap PO BID 03/17/20 buPROPion XL [Wellbutrin Xl] 150 mg PO DAILY 03/17/20 metFORMIN HCL [Glucophage] 1,000 mg PO BID 03/17/20 Alpha Lipoic Acid 50 mg PO DAILY 10/30/21 Butalb/Acetaminophen/Caffeine [Fioricet 50-300-40 mg Capsule] 1 - 2 cap PO Q4HR PRN 10/30/21 Fluticasone/Umeclidin/Vilanter [Trelegy Ellipta 200-62.5-25] 1 puff INHALATION DAILY 10/30/21 Meloxicam [Mobic] 15 mg PO DAILY 10/30/21 Rosuvastatin Calcium 20 mg PO DAILY 10/30/21 Turmeric Root Extract [Turmeric] 500 mg PO DAILY 10/30/21 Zinc 50 mg PO DAILY 10/30/21 Controlled Substance Measures - Controlled Substance Measures Is patient prescribed a controlled substance at discharge?: No
== END ==
LOC: PNWHC3 12:28
PROVIDERS: ATTEND Specialist
DX: M47.22 Other spondylosis with radiculopathy, cervical region (principal); M48.02 Spinal stenosis, cervical region; J44.9 Chronic obstructive pulmonary disease, unspecified; E78.5 Hyperlipidemia, unspecified; F41.9 Anxiety disorder, unspecified; Z87.891 Personal history of nicotine dependence; Z91.048 Other nonmedicinal substance allergy status; Z88.1 Allergy status to other antibiotic agents
CPT/HCPCS: 99211

== ENCOUNTER → 2022-01-13 | Outpatient (CLI) | payer BC ==
--- NOTE | 2022-01-15 07:18 | MR ---
EXAMINATION TYPE: MR brain and iac wo/w con DATE OF EXAM: 01/13/2022 COMPARISON: None HISTORY: Right-sided hearing loss CONTRAST: Standard multiplanar, multisequence MRI departmental protocol images were obtained without contrast a nd with 14 mL intravenous gadolinium contrast. Diffusion images show no evidence of an acute infarct. There are scattered white matter high signal f oci at the right cerebral hemisphere that measure up to 7 mm. Total numbers less than 10. There is si ngle focus in the left frontal lobe white matter measuring 4 mm. The brainstem is intact. There is no mass effect or midline shift. No sign of intracranial hemorrhage. The corpus callosum is intact. The brainstem is intact. No evidence of orbital mass. Temporal bones have normal signal pattern. No evid ence of mastoiditis. The internal auditory canals appear normal. There is normal appearance of the acoustic nerve and vest ibular nerve no sign of cerebellopontine angle mass. The contrast images show no pathologic brain enhancement. There is normal enhancement of the venous s inuses. IMPRESSION: There are some white matter signal changes mainly on the right cerebral hemisphere that could relate to some microvascular ischemia. No acute intracranial abnormality. No evidence of a posterior fossa f ocal abnormality. I do not see a cause for right-sided hearing loss.
== END | disposition home or self-care (01) ==
LOC: RADMRIMAIN 07:54
PROVIDERS: ATTEND Otolaryngology
DX: G93.89 Other specified disorders of brain (principal)
CPT/HCPCS: 70553; A9585

== ENCOUNTER 2022-01-19 07:41 | Day surgery (SDC) | payer BC ==
[2022-01-18 12:35] VITALS: BMI 41.8
[~2022-01-19 07:41] MED LIST changes: +LACTATED RINGERS 1,000 ML IV SCH; +LIDOCAINE 1% (10MG/ML) FOR IV START INTRADERMA PRN; -REGADENOSON 0.4 MG/5 ML SYRINGE IV ONE
[2022-01-19 08:41] VITALS: TEMP 97.2
[2022-01-19 08:47] LABS: Glucose,Whole Blood 155 mg/dL (70-110)
[2022-01-19] MEDS ORDERED: IOPAMIDOL M200 10 ML VIAL ONE (08:49)
[2022-01-19] MEDS ORDERED: MIDAZOLAM 2 MG/2 ML VIAL ONE (08:49)
[2022-01-19] MEDS ORDERED: DEXAMETHASONE SOD PHOSPHATE 10 MG/ML 1 ML VIAL ONE (08:49)
[2022-01-19] MEDS ORDERED: fentaNYL (PF) 50 MCG/ML 2 ML AMP ONE (08:49)
--- NOTE | 2022-01-19 09:11 | P.PCN ---
Date of Procedure: 01/19/22 Procedure(s) Performed: PREOPERATIVE DIAGNOSIS: 1-cervical radiculopathy . 2-cervical foraminal stenosis POSTOPERATIVE DIAGNOSIS: Same as preoperative diagnoses. PROCEDURE 1. Transforaminal epidural steroid injection under fluoroscopic guidance at right C4-5 level. (Fluoroscopy images stored on file in the radiology Department ) 2. Cervical epidurogram . ANESTHESIA: Local with 1% lidocaine 3 ml , moderate sedation with intravenous Versed 2 mg and fentanyle 100 micrograms. Sedation start time : 0 852 . Sedation. stop time : 905 . EBL: Minimal PROCEDURE INDICATION: The patient with low back pain and radiculopathy symptoms unresponsive to conservative treatment. PROCEDURE DESCRIPTION / TECHNIQUE: The patient was seen and identified in the preoperative area. Risks, benefits, complications, and alternatives were discussed with the patient. The patient agreed to proceed with the procedure and signed the consent. IV was started, and vital signs were stable. Patient was taken to the OR and time out was completed. The patient was placed in the lateral position ( right side up ) on procedure table. The lumbosacral area was prepped and draped in the usual sterile fashion. Critical pause was taken. Vital signs were closely monitored during the procedure. Conscious sedation was used during the procedure to decrease patient s anxiety. Using oblique fluoroscopy, the chin of the ``Arnie dog at C4-5 level was identified, and the skin and deeper tissues just below was localized with 1% lidocaine. Subsequently, a 25-gauge 3.5-inch spinal needle was advanced under a tunneled view fluoroscopic guidance just underneath the chin of the ``Arnie dog at the right C4-5 Under lateral fluoroscopy, the needle was then advanced to the posterior border of the interforaminal space. After negative aspiration of CSF and blood and with no paresthesias, 1 mL Isovue 200 contrast dye was injected excellent epidurogram and outlining of the nerve root Subsequently, 3 mL of block solution containing 15 mg Dexamethasone and 2 mL of 0.9% normal saline PF was injected. Needle was removed . At the end of the procedure, skin was cleansed, and bandages were applied. COMPLICATIONS:none DISPOSITION / PLANS: The patient was placed in a supine position and transferred to the recovery area in a stable condition for observation. There was no evidence of lower extremity motor or sensory deficit after the procedure. Patient was discharged from the recovery room after meeting discharge criteria. Home discharge instructions were given to the patient by the staff. The patient was reexamined prior to discharge.
--- NOTE | 2022-01-19 09:16 | FL ---
EXAMINATION TYPE: FL guided pain mgmt statistic DATE OF EXAM: 01/19/2022 HISTORY: Fluoroscopy time 13 seconds of fluoroscopy provided. IMPRESSION: 1. Fluoroscopy time.
[2022-01-19 09:19] VITALS: RESP 15
[2022-01-19 09:30] VITALS: BP 132/86; PULSE 75
[2022-01-19 09:31] LABS: Glucose,Whole Blood 145 mg/dL (70-110)
== END 2022-01-19 09:50 | disposition home or self-care (01) ==
LOC: ORPAIN 07:41
PROVIDERS: ATTEND Specialist
DX: M48.02 Spinal stenosis, cervical region (principal); M54.12 Radiculopathy, cervical region; Z91.048 Other nonmedicinal substance allergy status; Z88.1 Allergy status to other antibiotic agents
CPT/HCPCS: 64479; J2250; J1100; J3010; Q9966

== ENCOUNTER → 2022-02-11 | Outpatient (CLI) | payer BC ==
[2022-02-11 14:14] VITALS: BP 109/73; PULSE 82; RESP 16; TEMP 98.5
--- NOTE | 2022-02-11 14:53 | P.PAINPG ---
Objective - Vital Signs Vital signs: Intake & Output 02/10/22 02/11/22 02/11/22 18:59 06:59 18:59 Weight 133.81 kg PQRS Measure Charge Sheet Comment: A 61 yr old male w at side with a history of severe and chronic neck pain secondary to degenerative disc diseases and spondylosis with facet arthropathy without myelopathy presents today for evaluation s/p R TFESI C4-C5. Pt states he experienced 0% pain relief s/p procedure. Pain level is currently at 3/10 in intensity, constant, localized in the lower cervical spine, sharp in character w shooting towards BL neck and up the head, as well as R shoulder. Pain is provoked as high as 7/10 by reaching w RUE or pressing RUE. Pain is alleviated with PT x 6 wks in November 2021, heat, ice, mediations (Lyrica, Mobic), topicals, repositioning, use of soft c collar and rest. Interventional pain procedures completed include R TFESI C4-5. Patient is currently on Lyrica, Mobic, Migraine medication Patient denies any side effects of the medication(s), denies excessive drowsiness or sleepiness, denies suicidal ideation and reports that the current pain medication is helping to control the pain and improve activities of daily living. Patient denies any motor or sensory deficits. Patient denies any fever or night sweats, denies any change in the bowel movements or urination. Physical Examination: -Constitutional: Cooperative. Not in acute distress . - Neurologic: Cranial nerve II to XII intact. No focal neurological deficits. - Psychatric: Alert & oriented x 3. Matching mood & appropriate affect. Judgment and insight intact. - Musculoskeletal: Cervical spine: Muscle bulk/ tone/ strength in the bilateral upper extremities normal Vertebral body tenderness to palpation over Spurling test positive Distraction test positive Facet loading test positive Thoracic spine Muscle bulk / tone/ strength in the bilateral paraspinal muscles normal Vertebral body tender to palpation over Facet loading test positive Lumbar spine: Motor bulk/ tone/ strength lower extremities , thigh and legs : 5/5 Deep tendon reflexes : Normal Knee Jerk. Normal Ankle Jerk . Vertebral body tenderness to palpation over Lumbar Facet Loading Test positive Straight Leg Raise: positive at 30 degrees right side/ left side Gaenslen's Test positive Sacral spine : Severe tenderness over the Sacroiliac joint: right side / left side Range of motion: Flexion of the lumbar spine <60 degrees Range of motion: Extension of the lumbar spine <20 degrees Gaenslen's Test positive Casey's Test positive Brooklynn test: positive right side / left side Thigh Thrust Test Sacral Thrust Test Assessment and plan: Chronic neck pain secondary to cervical degenerative disc disease , spondylosis with facet arthropathy without myelopathy Pt will follow up w his neurologist for Brain MRI as there was concern for "spots" on his brain. Also informed that Dr Montgomery is awaiting report from neurologist before he makes additional recomendations. Pt may return to this clinic on an as needed basis. Risks, benefits of procedure discussed and pt verbalized understanding. Denies anticoagulant use or medical history of diabetes. All patient questions answered I have spent less than 30 minutes on patient care today. Dr St was available by phone for the evaluation of this patient. The time was used to review the medical records including relevant urine studies and Prescription history (MAPs), review of the available imaging, evaluation and examination of the patient, coordination of care with the medical staff and if applicable referring physicians, as well as creation of the medical record PQRS Narrative: Smoking Status Former smoker Hx Alcohol Use (MH) Yes: Occasional Home Medications: Ambulatory Orders Cholecalciferol [Vitamin D3 (25 Mcg = 1000 Iu)] 1,000 unit PO BID 01/11/15 Montelukast [Singulair] 10 mg PO HS 01/11/15 Vit C/E/Zn/Coppr/Lutein/Zeaxan [Preservision Areds 2 Softgel] 1 cap PO BID 01/11/15 Citalopram Hydrobromide [CeleXA] 40 mg PO DAILY 04/26/16 Alyssa C 1,000 mg PO BID 04/26/16 Testosterone Cypionate [Depo-Testosterone] 200 mg IM Q21D 08/03/17 Metoprolol Tartrate [Lopressor] 25 mg PO DAILY 03/17/20 Multivit-Min/FA/Lycopen/Lutein [Centrum Silver Men Tablet] 1 tab PO DAILY 03/17/20 [place]-3 Fatty Acids/Fish Oil [Fish Oil 1,000 mg Softgel] 3 cap PO DAILY 03/17/20 buPROPion XL [Wellbutrin Xl] 150 mg PO DAILY 03/17/20 metFORMIN HCL [Glucophage] 1,000 mg PO BID 03/17/20 Alpha Lipoic Acid 50 mg PO HS 10/30/21 Butalb/Acetaminophen/Caffeine [Fioricet 50-300-40 mg Capsule] 1 - 2 cap PO Q4HR PRN 10/30/21 Fluticasone/Umeclidin/Vilanter [Trelegy Ellipta 200-62.5-25] 1 puff INHALATION DAILY 10/30/21 Meloxicam [Mobic] 15 mg PO HS 10/30/21 Rosuvastatin Calcium 20 mg PO HS 10/30/21 Turmeric Root Extract [Turmeric] 500 mg PO DAILY 10/30/21 Zinc 50 mg PO DAILY 10/30/21 Metamucil Cap 4 cap PO DAILY 01/18/22 Fluticasone/Umeclidin/Vilanter [Trelegy Ellipta 100-62.5-25] 1 inhalation INHALATION DAILY 01/19/22 Controlled Substance Measures - Controlled Substance Measures Is patient prescribed a controlled substance at discharge?: No
== END ==
LOC: PNWHC3 13:35
PROVIDERS: ATTEND Specialist
DX: M50.30 Other cervical disc degeneration, unspecified cervical region (principal); M47.812 Spondylosis without myelopathy or radiculopathy, cervical region; G89.29 Other chronic pain; F10.90 Alcohol use, unspecified, uncomplicated; Z87.891 Personal history of nicotine dependence
CPT/HCPCS: 99211

== ENCOUNTER → 2022-03-04 | Outpatient (CLI) | payer BC ==
--- NOTE | 2022-03-04 17:00 | MR ---
EXAMINATION TYPE: MR cervical spine wo con DATE OF EXAM: 03/04/2022 COMPARISON: CT cervical spine 11/13/2021. HISTORY: Headaches and Rt arm pain - Surgery Mar 2020 due to a fall and FX of C1 TECHNIQUE: Multiplanar, multisequence images of the cervical spine were acquired without contrast. FINDINGS: Postsurgical change of posterior occipitocervical fusion extending down to the C4 level with transped icular screws from C2 through C4. Straightening of the cervical spine. Healed C1 fracture. Partial in terbody ankylosis of C2-C3 with some partial fusion across the right posterior elements of C3-C4. Cer vical spinal cord is of normal signal. Craniovertebral junction relationships are within normal limi ts. Multilevel disc desiccation. C2-C3: No disc bulge/herniation or protrusion. No Canal stenosis. Uncovertebral joint hypertrophy w ith mild bilateral neural foraminal stenosis. C3-C4: Posterior disc osteophyte complex with mild effacement of the left central anterior thecal sac . Uncovertebral joint hypertrophy. Mild bilateral neuroforaminal stenosis. C4-C5: Posterior disc osteophyte complex that mildly effaces the anterior thecal sac. Uncovertebral j oint hypertrophy with moderate bilateral neural foraminal stenosis. C5-C6: Posterior disc osteophyte complex that minimally effaces the anterior thecal sac. Uncovertebra l joint hypertrophy with moderate to severe bilateral neural foraminal stenosis. C6-C7: Based disc bulge that minimally effaces the anterior thecal sac. Uncovertebral joint hypertrop hy with moderate to severe bilateral neural foraminal stenosis. C7-T1: No evidence for degenerative disc disease. No disc bulge/herniation or protrusion. No Canal stenosis. Foramina are patent bilaterally. IMPRESSION: 1. Moderate multilevel degenerative disc disease with mild stenosis at C4-C5 and varying neural fora logan stenosis as described above. 2. Postsurgical changes with craniocervical fusion from the posterior occiput down through C4.
== END | disposition home or self-care (01) ==
LOC: RADMRIMAIN 12:51
PROVIDERS: ATTEND Orthopaedic Surgery
DX: M50.321 Other cervical disc degeneration at C4-C5 level (principal); M48.02 Spinal stenosis, cervical region
CPT/HCPCS: 72141

== ENCOUNTER → 2022-04-22 | Outpatient (CLI) | payer BC ==
[2022-04-22 15:41] LABS: African American GFR (CKD) >90 (>60 ml/min/1.73 sqM); Blood Urea Nitrogen 29 mg/dL (9-20); Non-African American GFR(CKD) >90 (>60 ml/min/1.73 sqM)
--- NOTE | 2022-04-22 16:56 | CT ---
EXAMINATION TYPE: CT angio neck CT DLP: 528.80 mGycm, Automated exposure control for dose reduction was used. DATE OF EXAM: 04/22/2022 4:41 PM COMPARISON: 11/13/2021. CLINICAL INDICATION:Male, 61 years old with history of I65.23 OCCLUSION AND STENOSIS OF BILATERAL CAR OTID; PHH, carotid stenosis. TECHNIQUE: Axially acquired helical CT angiogram of the head and neck was obtained with contrast. Axi al images are supplemented with 3D reconstructions which [facility] NASCET criteria used. Contrast used:65 mL of Isovue 370 with IV Contrast, Oral contrast used: None. FINDINGS: Right Carotid System: The common carotid artery and external carotid artery are patent. The carotid bifurcation demonstrate s no evidence of hemodynamically significant stenosis. The remaining portions of the internal carotid artery demonstrate normal size without significant narrowing. Left Carotid System: The common carotid artery and external carotid artery are patent. The carotid bifurcation demonstrate s no evidence of hemodynamically significant stenosis. The remaining portions of the internal carotid artery demonstrate normal size without significant narrowing. Vertebral arteries are patent without evidence hemodynamically significant stenosis. There is a three-vessel aortic arch. The origins of the great vessels are patent. No evidence of hemo dynamically significant stenosis. Postsurgical changes to the spine. Mild multilevel disc degeneration changes throughout the spine. Pa raseptal emphysema changes are seen throughout the lungs. IMPRESSION: 1. No evidence of dissection of the cervical internal carotid arteries or vertebral arteries or any e vidence of significant stenosis at the carotid bifurcations. 2. Mild emphysema changes.
== END | disposition home or self-care (01) ==
LOC: RADCTMAIN 14:46
PROVIDERS: ATTEND Psychiatry & Neurology Neurology
DX: J43.9 Emphysema, unspecified (principal); I65.23 Occlusion and stenosis of bilateral carotid arteries
CPT/HCPCS: 82565; 84520; 70498; 36415; Q9967

== ENCOUNTER → 2022-08-02 | Outpatient (CLI) | payer BC ==
[2022-08-02 15:20] LABS: African American GFR (CKD) >90 (>60 ml/min/1.73 sqM); Blood Urea Nitrogen 20 mg/dL (9-20); Non-African American GFR(CKD) >90 (>60 ml/min/1.73 sqM)
--- NOTE | 2022-08-03 11:05 | CT ---
EXAMINATION TYPE: CT angio chest CT DLP: 1635.1 mGycm, Automated exposure control for dose reduction was used. DATE OF EXAM: 08/02/2022 4:10 PM COMPARISON: CT 08/05/2021 and dating back to 01/30/2016 CLINICAL INDICATION:Male, 61 years old with history of I28.1 ANEURYSM OF PULMONARY ARTERY; Pulmonary Aneurysm. TECHNIQUE/CONTRAST: CTA scan of the thorax is performed with IV Contrast, patient injected with 100cc mL of Isovue 370, p ulmonary embolism protocol. MIP images are created and reviewed these are created on a separate work station.. FINDINGS: Lungs/Pleura: No evidence of focal consolidation, pleural effusion or pneumothorax. Mild paraseptal e mphysema changes. Airway: Large airways are patent. Heart: Heart is mildly enlarged for size. Vasculature: No evidence of aortic aneurysm. The ascending thoracic aorta measures up to 3.6 cm. The descending thoracic aorta is within normal limits. Visualized abdominal aorta does not demonstrate an eurysmal dilation. There is minimal scattered atherosclerotic plaque. The pulmonary trunk is dilated up to 3.9 cm and near the root measuring similarly at 4.5 cm just past the tricuspid valve. This is m ildly increased from 2016 where it measured approximately 4.2 cm at the root. Mediastinum: No gross evidence of adenopathy. Musculoskeletal: Mild degenerative disc disease changes are present throughout the thoracolumbar spin e. Soft Tissues: Unremarkable. Lower neck: No significant findings. Upper Abdomen: Stable right hepatic lobe segment 7 arterial phase enhancing 7 mm focus likely represe nting flash filling hemangioma or other benign etiology. Layering hyperdensity in the gallbladder lum en likely representing small gallstones. Second portion duodenal diverticulum. Pancreatic lesion in t he tail measuring 2.0 x 1.6 cm is slowly increasing in size from 2020 where it measured 1.9 x 1.5 IMPRESSION: 1. Dilation of the pulmonary trunk measuring up to 3.9 cm and at the pulmonary trunk root measuring 4.5 cm just after the tricuspid valve. Previously in 2016 the root measures up to 4.2 cm. Correlate f or pulmonary hypertension and evaluation for tricuspid valve stenosis with poststenotic dilatation. 2. Pancreatic tail lesion measuring up to 2.0 x 1.6 cm is incompletely evaluated on this exam. Furth er evaluation with MRI with contrast and MRCP is recommended. 3. Mild cardiomegaly. 4. Mild emphysema.
== END | disposition home or self-care (01) ==
LOC: RADCTMAIN 14:42
PROVIDERS: ATTEND Surgery
DX: I07.1 Rheumatic tricuspid insufficiency (principal); J43.9 Emphysema, unspecified; I28.1 Aneurysm of pulmonary artery; K86.89 Other specified diseases of pancreas
CPT/HCPCS: 82565; 84520; 71275; 36415; Q9967

== ENCOUNTER 2022-09-27 18:07 | Observation (INO) | payer BC ==
[2022-09-27] MEDS ORDERED: LORazepam 2 MG/ML INJ IV STA (18:14)
[2022-09-27] MEDS ORDERED: SODIUM CHLORIDE 0.9% 1,000 ML IV STA (18:14)
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
[2022-09-27 18:31] LABS: Basophils # (A) 0.1 k/uL (0-0.2); Basophils % (A) 1 %; Eosinophils # (A) 0.1 k/uL (0-0.7); Eosinophils % (A) 1 %; HGB 16.1 gm/dL (13.0-17.5); Lymphocytes # (A) 2.9 k/uL (1.0-4.8); Lymphocytes % (A) 34 %; MCH 31.1 pg (25.0-35.0); MCHC 32.9 g/dL (31.0-37.0); MCV 94.5 fL (80.0-100.0); Mean Platelet Volume 7.9; Monocytes # (A) 0.3 k/uL (0-1.0); Monocytes % (A) 4 %; Neutrophils # (A) 5.1 k/uL (1.3-7.7); Neutrophils % (A) 59 %; Platelet Count 200 k/uL (150-450); RBC 5.18 m/uL (4.30-5.90); RDW 12.9 % (11.5-15.5); WBC 8.6 k/uL (3.8-10.6)
[2022-09-27 18:40] LABS: ALT 34 U/L (4-49); AST 34 U/L (17-59); African American GFR (CKD) >90 (>60 ml/min/1.73 sqM); Albumin 5.1 g/dL (3.5-5.0); Alkaline Phosphatase 63 U/L (38-126); Anion Gap 20 mmol/L; Blood Urea Nitrogen 18 mg/dL (9-20); Calcium 9.7 mg/dL (8.4-10.2); Carbon Dioxide 21 mmol/L (22-30); Chloride 100 mmol/L (98-107); Glucose 134 mg/dL (74-99); Non-African American GFR(CKD) >90 (>60 ml/min/1.73 sqM); Sodium 141 mmol/L (137-145); Total Bilirubin 0.6 mg/dL (0.2-1.3); Total Protein 8.5 g/dL (6.3-8.2)
[2022-09-27 18:45] LABS: Alcohol 287 mg/dL; Potassium 4.7 mmol/L (3.5-5.1)
[2022-09-27 18:47] LABS: Prothrombin Time 10.9 sec (9.0-12.0)
[2022-09-27 19:02] LABS: Partial Thromboplastin Time 21.2 sec (22.0-30.0)
[2022-09-27] MEDS ORDERED: ZIPRASIDONE 20 MG VIAL IM STA (19:03)
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
[2022-09-27] MEDS ORDERED: SODIUM CHLORIDE 0.9% 1,000 ML with MVI, ADULT NO.4 WITH VIT K 10 ML, THIAMINE 100 MG, F... IV ONE ×4 (21:00)
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
[2022-09-27] MEDS ORDERED: THIAMINE 100 MG/ML 2 ML VIAL IM STA (21:16)
[2022-09-27] MEDS ORDERED: LORazepam 2 MG/ML INJ IV PRN (21:16)
[2022-09-27 23:19] LABS: Amphetamine Screen,Urine Not Detected (NotDetected); Barbiturate Screen,Urine Not Detected (NotDetected); Benzodiazepines Screen,Urine Detected (NotDetected); Cocaine Screen,Urine Not Detected (NotDetected); Methadone Screen, Urine Not Detected (NotDetected); Opiate Screen,Urine Not Detected (NotDetected); Oxycodone Screen, Urine Not Detected (NotDetected); Phencyclidine Screen,Urine Not Detected (NotDetected); Tricyclic Antidepressant,Urine Not Detected (NotDetected); Urn Cannabinoid Scrn Not Detected (NotDetected)
[2022-09-28] MEDS: THIAMINE 100 MG TAB PO SCH (08:06)
[2022-09-28] MEDS ORDERED: Rimegepant Sulfate [Nurtec Odt] 75 MG Tablet PO PRN (12:01)
[2022-09-28] MEDS ORDERED: HYDROmorphone 0.5 MG/0.5 ML SYRINGE IVP PRN (12:03)
[2022-09-28] MEDS ORDERED: buPROPion XL 150 MG TAB.ER.24H PO SCH (12:15)
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
[2022-09-28] MEDS: ENOXAPARIN 40 MG/0.4 ML SYRINGE SQ SCH (12:40)
[2022-09-28] MEDS: ASPIRIN 81 MG PO SCH (12:40)
[2022-09-28] MEDS: HYDROcodone/APAP 5-325MG 1 EACH TAB PO PRN ×2 (12:43→21:20)
[2022-09-28 13:16] LABS: Glucose,Whole Blood 102 mg/dL (70-110)
[2022-09-28] MEDS ORDERED: DEXTROSE 50% SYRINGE 50 ML IVP PRN ×2 (14:24)
[2022-09-28] MEDS ORDERED: OLANZapine 10 MG VIAL IM PRN (15:11)
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
[2022-09-28] MEDS: SYMBICORT 160-4.5 MCG INHALER INHALATION SCH ×2 (15:18→20:42)
[2022-09-28] MEDS: IPRATROPIUM 0.5 MG/2.5 ML NEBU INHALATION SCH ×3 (15:18→20:42)
[2022-09-28 17:04] LABS: Glucose,Whole Blood 114 mg/dL (70-110)
[2022-09-28] MEDS: INSULIN ASPART (NovoLOG) 100 UNIT/ML VIAL SQ SCH ×2 (17:16→21:17)
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
[2022-09-28 20:22] LABS: Glucose,Whole Blood 111 mg/dL (70-110)
[2022-09-28] MEDS ORDERED: MONTELUKAST 10 MG TAB PO SCH (21:00)
[2022-09-28] MEDS ORDERED: NON FORMULARY DRUG (Alpha Lipoic Acid [Alpha Lipoic Acid] 50 MG Tablet) PO SCH (21:00)
[2022-09-28] MEDS ORDERED: ATORVASTATIN 40 MG TAB PO SCH (21:00)
[2022-09-28] MEDS ORDERED: MELOXICAM 7.5 MG TAB PO SCH (21:00)
[2022-09-28] MEDS: PREGABALIN 50 MG CAP PO SCH (21:17)
[2022-09-28] MEDS: ASCORBIC ACID 500 MG TAB PO SCH (21:17)
[2022-09-28] MEDS: VIT A,C & E-LUTEIN-MINERALS 1 EACH TAB PO SCH (21:17)
[2022-09-28] MEDS: metFORMIN 500 MG TAB PO SCH (21:17)
[2022-09-28] MEDS: CHOLECALCIFEROL 25 MCG (1000 IU) TABLET PO SCH (21:17)
[2022-09-29 07:40] LABS: Glucose,Whole Blood 133 mg/dL (70-110)
[2022-09-29] MEDS: INSULIN ASPART (NovoLOG) 100 UNIT/ML VIAL SQ SCH ×2 (07:44→12:26)
[2022-09-29 08:05] VITALS: BP 148/68; PULSE 80; RESP 15; TEMP 98.1
[2022-09-29] MEDS: ENOXAPARIN 40 MG/0.4 ML SYRINGE SQ SCH (08:17)
[2022-09-29] MEDS: metFORMIN 500 MG TAB PO SCH (08:18)
[2022-09-29] MEDS: VIT A,C & E-LUTEIN-MINERALS 1 EACH TAB PO SCH (08:18)
[2022-09-29] MEDS: CHOLECALCIFEROL 25 MCG (1000 IU) TABLET PO SCH (08:18)
[2022-09-29] MEDS: ASPIRIN 81 MG PO SCH (08:18)
[2022-09-29] MEDS: PREGABALIN 50 MG CAP PO SCH (08:19)
[2022-09-29] MEDS: THIAMINE 100 MG TAB PO SCH (08:19)
[2022-09-29] MEDS: ASCORBIC ACID 500 MG TAB PO SCH (08:19)
[2022-09-29] MEDS: SYMBICORT 160-4.5 MCG INHALER INHALATION SCH (08:36)
[2022-09-29] MEDS: IPRATROPIUM 0.5 MG/2.5 ML NEBU INHALATION SCH ×2 (08:36→11:38)
[2022-09-29] MEDS ORDERED: MULTIVITAMINS, THERA 1 EACH TAB PO SCH (09:00)
[2022-09-29] MEDS ORDERED: NON FORMULARY DRUG (Omega-3 Fatty Acids/Fish Oil [Fish Oil 1,000 Mg Softgel] 1 EACH Capsul PO SCH (09:00)
[2022-09-29] MEDS ORDERED: ZINC SULFATE 220 MG CAP PO SCH (09:00)
[2022-09-29] MEDS ORDERED: CITALOPRAM HYDROBROMIDE 20 MG TAB PO SCH ×2 (09:00)
[2022-09-29] MEDS ORDERED: METOPROLOL TARTRATE 25 MG TAB PO SCH (09:00)
[2022-09-29] MEDS ORDERED: PSYLLIUM HUSK 100% 6 GM PACKET PO SCH (09:00)
[2022-09-29] MEDS ORDERED: NON FORMULARY DRUG (Cyanocobalamin/Cobamamide [Vitamin B-12 5,000 Mcg Tab Sl] 1 EACH Tab) SUBLINGUAL SCH (09:00)
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
[2022-09-29 10:50] LABS: Basophils # (A) 0.08 X 10*3/uL (0.00-0.10); Basophils % (A) 1.1 %; Eosinophils % (A) 1.4 %; HCT 39.5 % (39.6-50.0); HGB 13.2 g/dL (13.0-17.0); Immature Grans, Automated 0.7 %; Lymphocytes # (A) 1.98 X 10*3/uL (0.90-5.00); MCH 31.5 pg (27.0-32.0); MCHC 33.4 g/dL (32.0-37.0); MCV 94.3 fL (80.0-97.0); Mean Platelet Volume 10.2 fL (9.5-12.2); Monocytes # (A) 0.75 X 10*3/uL (0.20-1.00); Monocytes % (A) 10.6 %; NRBC Per 100 WBC 0 /100 WBCS (0.0-0.0); Neutrophils # (A) 4.11 X 10*3/uL (1.80-7.70); Neutrophils % (A) 58.2 %; Platelet Count 156 X 10*3/uL (140-440); RBC 4.19 X 10*6/uL (4.40-5.60); RDW 13.2 % (11.5-14.5); WBC 7.07 X 10*3/uL (4.50-10.00)
[2022-09-29 11:08] LABS: African American GFR (CKD) 107.2 (60.0-200.0); Anion Gap 8.6 mmol/L (10.00-18.00); BUN/Creat Ratio 23.22 Ratio (12.00-20.00); Blood Urea Nitrogen 20.9 mg/dL (9.0-27.0); Calcium 9.4 mg/dL (8.7-10.3); Carbon Dioxide 29.4 mmol/L (20.0-27.5); Non-African American GFR(CKD) 92.5 (60.0-200.0); Potassium 4.6 mmol/L (3.5-5.5)
[2022-09-29 11:55] LABS: Glucose,Whole Blood 134 mg/dL (70-110)
[2022-09-29] MEDS: HYDROcodone/APAP 5-325MG 1 EACH TAB PO PRN (13:32)
--- NOTE | 2022-09-29 13:44 | DS ---
DISCHARGE SUMMARY FINAL DIAGNOSES: 1. Acute alcohol intoxication. 2. History of suicidal ideation, but currently cleared by psych. 3. Chronic obstructive pulmonary disease. 4. Diabetes mellitus, type 2. 5. Hyperlipidemia. 6. Multiple medical issues. 7. History of pulmonary embolism. DISCHARGE DISPOSITION: The patient will be discharged in stable condition and guarded prognosis. HISTORY OF PRESENT ILLNESS: A 62-year-old gentleman admitted with acute alcohol intoxication, other associated medical issues. Psychiatry saw the patient and cleared for discharge and a brain MRI was also done per Neurology recommendations which showed diffuse atrophy and small- vessel changes, so the patient will be discharged in stable condition and guarded prognosis. Further recommendations to follow in the outpatient setting, alcohol rehab and AA meetings. PHYSICAL EXAMINATION: VITAL SIGNS: Stable. CARDIOVASCULAR: S1, S2. ABDOMEN: Soft. NERVOUS SYSTEM: No focal deficits. DISCHARGE MEDICATIONS: Resume the home medications. Thiamine 100 mg p.o. daily and continue with Ecotrin 81 mg daily. Follow up with Dr. Barton in 2 to 3 days. Follow up with psych or [facility] as recommended. Attend AA meetings and alcohol rehab. MMEDGARDO / ETMON: [id number] /
--- NOTE | 2022-09-29 13:53 | P.PN ---
Progress Note - Text Progress Note Date: 09/29/22 Interval History: Patient was seen resting in bed and was directable and agreeable to speak with rewriter in his room. The next to the patient is his and [id number]. Currently, the patient is alert and oriented in all spheres. He is denying any suicidal or homicidal ideation, intention, and/or plan. He is not reporting any auditory or visual hallucinations. He denies any paranoia or other delusions. He does report that he had some visual disturbances at night however no other perceptual abnormalities are endorsed. He describes seeing bandages on the floor when he closes his eyes. Likely hypnagogic/hypnopompic hallucinations as they are not occurring in any other time for him. The patient remains future and goal oriented. He and his are interested in starting medications to address his migraines and depression. EKG displayed normal sinus rhythm. Furthermore, the patient is open to starting medications for alcohol cessation. Mental Status Exam: General Appearance: Patient appears to be stated age is alert, directable, and cooperative. Behavior: Patient is calmly seated without any agitated behavior. Eye contact is appropriate. Speech: Patient's speech is fluent and nonpressured. Mood/Affect: Mood is "doing okay," affect is congruent and constricted. Suicidality/Homicidality: Patient denies having any suicidal or homicidal ideation intent or plan. Perceptions: Patient denies any visual hallucinations and denies any auditory hallucinations Though content/process: There is no evidence of any delusional thought content and thought process is linear and goal-directed. Memory and concentration: AOX3, grossly intact for the purposes of this session Judgment and insight: Much improved Vital Signs Temp 98.1 F 09/29/22 07:23 Pulse 80 09/29/22 07:23 Resp 15 09/29/22 07:23 BP 148/68 09/29/22 07:23 Pulse Ox 94 L 09/29/22 08:36 FiO2 Intake & Output 09/28/22 09/29/22 09/29/22 18:59 06:59 18:59 Weight 181.437 kg Other: Voiding Method Toilet Toilet Toilet Urinal Urinal Urinal # Voids 1 2 Laboratory Results - Last 24 Hours 09/28/22 09/28/22 09/28/22 15:05 16:23 16:23 WBC RBC Hgb Hct MCV MCH MCHC RDW Plt Count MPV Immature Gran % (Auto) Absolute Nucleated RBC Neutrophils % Lymphocytes % Monocytes % Eosinophils % Basophils % Immature Gran # Neutrophils # Lymphocytes # Monocytes # Eosinophils # Basophils # NRBC/100 WBC Diff Sodium Potassium Chloride Carbon Dioxide Anion Gap BUN Creatinine Est GFR (CKD-EPI)AfAm Est GFR (CKD-EPI)NonAf BUN/Creatinine Ratio Glucose POC Glucose (mg/dL) POC Glu Popped Corn Oven Attendant ID Estimated Ave Glu mg/dL 151 Hemoglobin A1c 6.9 H Calcium Vitamin B12 514.0 Folate 25.20 TSH 2.550 09/28/22 09/28/22 09/29/22 17:03 20:20 06:13 WBC 7.07 RBC 4.19 L Hgb 13.2 Hct 39.5 L MCV 94.3 MCH 31.5 MCHC 33.4 RDW 13.2 Plt Count 156 MPV 10.2 Immature Gran % (Auto) 0.7 Absolute Nucleated RBC 0 Neutrophils % 58.2 Lymphocytes % 28.0 Monocytes % 10.6 Eosinophils % 1.4 Basophils % 1.1 Immature Gran # 0.05 H Neutrophils # 4.11 Lymphocytes # 1.98 Monocytes # 0.75 Eosinophils # 0.10 Basophils # 0.08 NRBC/100 WBC Diff 0 Sodium Potassium Chloride Carbon Dioxide Anion Gap BUN Creatinine Est GFR (CKD-EPI)AfAm Est GFR (CKD-EPI)NonAf BUN/Creatinine Ratio Glucose POC Glucose (mg/dL) 114 H 111 H POC Glu Popped Corn Oven Attendant ID Ellen Hernández Brenda [address] Glu mg/dL Hemoglobin A1c Calcium Vitamin B12 Folate TSH 09/29/22 09/29/22 09/29/22 06:13 07:37 11:53 WBC RBC Hgb Hct MCV MCH MCHC RDW Plt Count MPV Immature Gran % (Auto) Absolute Nucleated RBC Neutrophils % Lymphocytes % Monocytes % Eosinophils % Basophils % Immature Gran # Neutrophils # Lymphocytes # Monocytes # Eosinophils # Basophils # NRBC/100 WBC Diff Sodium 139 Potassium 4.6 Chloride 101 Carbon Dioxide 29.4 H Anion Gap 8.60 L BUN 20.9 Creatinine 0.9 Est GFR (CKD-EPI)AfAm 107.2 Est GFR (CKD-EPI)NonAf 92.5 BUN/Creatinine Ratio 23.22 H Glucose 123 H POC Glucose (mg/dL) 133 H 134 H POC Glu Popped Corn Oven Attendant ID Mima Voss Allison [address] Glu mg/dL Hemoglobin A1c Calcium 9.4 Vitamin B12 Folate TSH Assessment Alcohol-induced depressive disorder Alcohol use disorder, binge type Major depressive disorder Plan: -Appreciate neurology evaluation. No acute pathology noted. -Vitamin B12, folate, TSH are within normal limits -At this time patient DOES NOT meet criteria for inpatient psychiatric admission. The patient is not overtly manic or psychotic or endorsing any suicidal or homicidal ideation, intention, and/or plan. -Delirium precautions recommended with patient including - avoiding use of narcotics and [employer] sedatives, limit anticholinergic medications when possible, frequent re-orientation, minimize use of restraints, open window shades during the day and close them at night -Would recommend the following medication changes/additions: Discontinue Wellbutrin and citalopram. Patient will be discharged on a regimen of Elavil 25 mg by mouth at bedtime for management of migraines and depression/anxiety and Campral 333 mg by mouth 3 times a day for alcohol cessation -Patient does not require one-to-one sitter -Psychiatry will sign off at this time. Please call us reconsult us if necessary. Patient is cleared psychiatrically for discharge with recommendation for outpatient psychiatric follow-up.
--- NOTE | 2022-09-29 14:17 | P.PN ---
Subjective Progress Note Date: 09/29/22 The patient seen at bedside and he is accompanied with his and friend. Patient feels he is doing better. Per the did not had any further staring off episode with unresponsiveness today. He denies of any headache, focal weakness. Objective - Vital Signs Vital signs: Vital Signs Temp 98.1 F 09/29/22 07:23 Pulse 80 09/29/22 07:23 Resp 15 09/29/22 07:23 BP 148/68 09/29/22 07:23 Pulse Ox 94 L 09/29/22 08:36 FiO2 Intake & Output 09/28/22 09/29/22 09/29/22 18:59 06:59 18:59 Weight 181.437 kg Other: Voiding Method Toilet Toilet Toilet Urinal Urinal Urinal # Voids 1 2 - Exam GENERAL: The patient is lying in bed and is not in acute distress. NEUROLOGICAL: Higher mental function: The patient is awake, alert, oriented to self, place and time. Patient is following commands. No aphasia and no neglect. Cranial nerves: The pupils are round, equal and reactive to light and accommodation. Visual an are full to confrontation throughout. Extraocular movement is intact no nystagmus is noted. Facial sensation is normal to touch throughout. The facial strength is normal throughout. Hearing is normal bilaterally to hand rub. Tongue is midline and moved [id number] without any difficulty. No dysarthria is noted. Motor: The strength is hard to assess upper extremities individual muscles because of his chronic neck/shoulder pain but moving again gravity. Otherwise, lowers 5 over 5 throughout. Normal tone and bulk. Cerebellum: Normal finger to nose bilaterally. Sensation: Sensation is normal to touch throughout. Reflexes (right/left): 3+ brachioradialis. Otherwise 2+ throughout. Plantars are mute bilaterally. Some of the workup during his hospital visit consisted of: CBC differential is unremarkable. Glucose is 134. Calcium, magnesium, HDL to within normal limits. Sodium is within normal limits Serum alcohol 287 Serum folate is 25.2 Vitamin B12 is 540 TSH is 2.55 Hemoglobin A1c is 6.9 Urine drug screen is positive for benzo. CT of the head is reported as no acute process. Follow-up MRI can be performed as clinically indicated. I personally reviewed the CT and I agree with the rep ort. CT cervical spine is reported as no acute osseous abnormality cervical spine. MR the brain is reported as background of mild diffuse cerebral atrophy and mild to moderate chronic small vessel ischemic change is redemonstrated. No significant change from prior MRI. Surgical change posteroinferior aspect of the calvarium is again seen. No suspicious and has been noted. I personally reviewed the MRI and agree with report. - Labs CBC & Chem 7: 09/29/22 06:13 09/29/22 06:13 Labs: Abnormal Lab Results - Last 24 Hours (Table) 09/28/22 09/28/22 09/28/22 Range/Units 15:05 17:03 20:20 RBC (4.40-5.60) X 10*6/uL Hct (39.6-50.0) % Immature Gran # (0.00-0.04) X 10*3/uL Carbon Dioxide (20.0-27.5) mmol/L Anion Gap (10.00-18.00) mmol/L BUN/Creatinine Ratio (12.00-20.00) Ratio Glucose (70-110) mg/dL POC Glucose (mg/dL) 114 H 111 H (70-110) mg/dL Hemoglobin A1c 6.9 H (0.0-6.0) % 09/29/22 09/29/22 09/29/22 Range/Units 06:13 06:13 07:37 RBC 4.19 L (4.40-5.60) X 10*6/uL Hct 39.5 L (39.6-50.0) % Immature Gran # 0.05 H (0.00-0.04) X 10*3/uL Carbon Dioxide 29.4 H (20.0-27.5) mmol/L Anion Gap 8.60 L (10.00-18.00) mmol/L BUN/Creatinine Ratio 23.22 H (12.00-20.00) Ratio Glucose 123 H (70-110) mg/dL POC Glucose (mg/dL) 133 H (70-110) mg/dL Hemoglobin A1c (0.0-6.0) % 09/29/22 Range/Units 11:53 RBC (4.40-5.60) X 10*6/uL Hct (39.6-50.0) % Immature Gran # (0.00-0.04) X 10*3/uL Carbon Dioxide (20.0-27.5) mmol/L Anion Gap (10.00-18.00) mmol/L BUN/Creatinine Ratio (12.00-20.00) Ratio Glucose (70-110) mg/dL POC Glucose (mg/dL) 134 H (70-110) mg/dL Hemoglobin A1c (0.0-6.0) % Assessment and Plan Assessment: Staring off episodes since 09/28 after alcohol intoxication event ( I witnessed an episode and was very brief). Unsure exact cause. Unsure if patient had head concussion and result had these episodes ( unsure if he had head trauma)---improved. On EEG no evidence of seizure or discharges. MRI Brain is negative. Alcohol intoxication. History of questionable TIA Diabetes mellitus and his recent hemoglobin A1c is 6.9 Depression History of COPD Morbid obesity History of cervical surgery Depression History of alcohol abuse once every 2-3 month Plan: Preliminary routine EEG: Normal. There is no focal slowing, epileptiform discharges or seizure on the EEG. Continue thiamine 100mg daily. Agree with holding Wellbutrin since it can lower the seizure threshold Patient was counseled alcohol cessation We'll defer CIWA protocol to his primary team. Upon discharge recommend the patient to follow-up with his neurologist (Dr. Nunez) within 2 weeks. I discussed with the patient and his was at bedside Otherwise no additional neurological work-up. Time with Patient: Less than 30
--- NOTE | 2022-09-29 17:08 | EEG ---
ELECTROENCEPHALOGRAM REPORT CLINICAL HISTORY: This is a 62-year-old gentleman who had staring off episode. The video EEG is obtained to evaluate for seizure epileptiform activity. RELEVANT MEDICATIONS: Lyrica, amitriptyline. EEG TYPE: A routine 21-channel EEG is performed with video using the 10/20 electrode placement system. DESCRIPTION: Wakefulness is only obtained. During awake state, the posterior-dominant rhythm consists of [id number] voltage of 9 to 10 hertz activity that is well modulated and well sustained. There is no physiological stage 2 sleep architecture. There is no focal slowing. There is moderate amount of myogenic artifact over predominantly left hemisphere. Interictal and ictal is none. ACTIVATION PROCEDURE: Photic stimulation did not evoke a posterior driving response. There is no abnormality during the photic stimulation. Hyperventilation is not performed. CLINICAL INTERPRETATION: This is a normal routine EEG. There is no focal slowing, epileptiform discharge or seizure on the EEG. A normal routine EEG does not rule out underlying epilepsy. Clinical correlation is recommended. RAIZA / CORI: [id number] / OZZIE
[2022-11-05] MEDS ORDERED: AUTO INJCT SQ SCH (09:00)
[2022-11-05] MEDS ORDERED: FREMANEZUMAB VFRM 225 MG/1.5 ML SQ SCH (09:00)
== END 2022-09-29 13:57 | disposition home or self-care (01) ==
LOC: EC 18:07 → INTOOBSV 21:17 → 5NMEDONC 21:17
PROVIDERS: ADMIT Hospitalist; ATTEND Hospitalist
DX: F10.129 Alcohol abuse with intoxication, unspecified (principal); F10.14 Alcohol abuse with alcohol-induced mood disorder; F32.9 Major depressive disorder, single episode, unspecified; J43.9 Emphysema, unspecified; R45.851 Suicidal ideations; G50.0 Trigeminal neuralgia; G43.909 Migraine, unspecified, not intractable, without status migrainosus; E11.9 Type 2 diabetes mellitus without complications; G47.33 Obstructive sleep apnea (adult) (pediatric); K57.90 Diverticulosis of intestine, part unspecified, without perforation or abscess without bleeding; E78.5 Hyperlipidemia, unspecified; M19.90 Unspecified osteoarthritis, unspecified site; G89.29 Other chronic pain; M54.9 Dorsalgia, unspecified; M54.2 Cervicalgia; F41.9 Anxiety disorder, unspecified; Y90.8 Blood alcohol level of 240 mg/100 ml or more; E66.01 Morbid (severe) obesity due to excess calories; V86.59XA Driver of other special all-terrain or other off-road motor vehicle injured in nontraffic accident, initial encounter; Z68.43 Body mass index [BMI] 50.0-59.9, adult; Z79.82 Long term (current) use of aspirin; Z79.84 Long term (current) use of oral hypoglycemic drugs; Z79.1 Long term (current) use of non-steroidal anti-inflammatories (NSAID); Z79.51 Long term (current) use of inhaled steroids; Z79.899 Other long term (current) drug therapy; Z86.711 Personal history of pulmonary embolism; Z86.73 Personal history of transient ischemic attack (TIA), and cerebral infarction without residual deficits; Z87.891 Personal history of nicotine dependence; Z87.01 Personal history of pneumonia (recurrent); Z90.49 Acquired absence of other specified parts of digestive tract; Z98.890 Other specified postprocedural states; Z88.1 Allergy status to other antibiotic agents; Z91.048 Other nonmedicinal substance allergy status; Z81.8 Family history of other mental and behavioral disorders; Z82.5 Family history of asthma and other chronic lower respiratory diseases; Z80.6 Family history of leukemia
CPT/HCPCS: 96372 ×3; 96361; 96365; 96366 ×2; 96375; 99285; 36415; 94640; 94760; 95816; 93005; 86900; 86901; 80053; 80048; 84443; 82607; 82746; 83735; 84484; 85025 ×2; 85610; 85730; 86850; 80306; 80320; 83036; 72170; 71045; 72125; 70450; 71260; 74177; 70553; G0378 ×2; J2060; J3411; J1650 ×2; J3486; Q9967; A9585

== ENCOUNTER → 2023-06-15 | Outpatient (CLI) | payer BC ==
--- NOTE | 2023-06-15 09:59 | US ---
EXAMINATION TYPE: US abdomen complete DATE OF EXAM: 06/15/2023 COMPARISON: 09/27/2022 CLINICAL INDICATION: Male, 62 years old with history of R10.9 UNSPECIFIED ABDOMINAL PAIN; Patient sta baldo that he is having RUQ pain and nausea that comes and goes. TECHNIQUE: Multiple sonographic images of the abdomen are obtained. FINDINGS: EXAM MEASUREMENTS: Liver Length: 19.4 cm Gallbladder Wall: 0.3 cm CBD: obscured by bowel gas cm Spleen: 10.4 cm Right Kidney: 11.0 x 7.2 x 6.1 cm Left Kidney: 13.2 x 6.5 x 5.3 cm CONTACT CENTER PROFESSIONAL NOTES: *Limited due to bowel gas and patient body habitus Pancreas: Obscured by bowel gas Liver: Increased attenuation Gallbladder: multiple small, mobile echogenic foci seen within. Wall normal Evidence for sonographic Mondragon's sign: No CBD: Obscured by overlying bowel gas Spleen: wnl Right Kidney: No hydronephrosis or masses seen Left Kidney: There is a small, exophytic anechoic lesion seen laterally measuring 0.8 x 0.7 x 0.8 Upper IVC: wnl Abd Aorta: Obscured by overlying bowel gas The liver is homogenous with increased echotexture, no dilated ducts or cystic structures. No suspici ous liver masses.. The intrahepatic portion of the IVC and proximal abdominal aorta are within dayan l limits. There is no evidence of cholelithiasis. Common bile duct is unremarkable. The visualized portions of the pancreas are homogenous. The spleen is unremarkable. Kidneys are symmetric and eduardo e of hydronephrosis. No renal lesions are seen. IMPRESSION: 1. Cholelithiasis. 2. Hepatic steatosis.
== END | disposition home or self-care (01) ==
LOC: RADUSWWP 09:00
PROVIDERS: ATTEND Family Medicine
DX: K80.20 Calculus of gallbladder without cholecystitis without obstruction (principal); K76.0 Fatty (change of) liver, not elsewhere classified
CPT/HCPCS: 76700

== ENCOUNTER → 2023-08-05 | Outpatient (CLI) | payer BC ==
--- NOTE | 2023-08-11 11:35 | CT ---
EXAMINATION TYPE: CT chest wo con CT DLP: 836.6 mGycm, Automated exposure control for dose reduction was used. DATE OF EXAM: 08/05/2023 10:46 AM COMPARISON: Chest radiograph from same day. Multiple CTs of the chest with most recent on . CLINICAL INDICATION:Male, 62 years old with history of I28.1 ANEURYSM OF PULMONARY ARTERY; PHH, ANEUR YSM OF PULMONARY ARTERY TECHNIQUE: Multiple axial images were obtained through the chest. Sagittal and coronal reformats were created for review. Contrast used: mL of (None if empty) Oral contrast used: (None if empty) FINDINGS: LUNGS/ PLEURA: Emphysema including peripheral blebs AIRWAY: Patent and unremarkable. HEART: Size within normal limits. MEDIASTINUM: No gross evidence of adenopathy. VASCULATURE: The main pulmonary artery just proximal to the bifurcation 37 mm diameter. MUSCULOSKELETAL: No acute osseous abnormalities SOFT TISSUES/LYMPH NODES: Unremarkable. LOWER NECK: No significant findings. UPPER ABDOMEN: Cholelithiasis. No acute pathology. IMPRESSION: Ectatic 37 mm pulmonary artery to be related to pulmonary hypertension. Aneurysm is considered above 45 mm diameter. Follow up recommendations for incidental pulmonary nodules, if there are any, are per [employer] [place] [employer] or [employer]. [email or web address].org/articles/[email or web address]?lang=us
== END | disposition home or self-care (01) ==
LOC: RADCTMAIN 10:29
PROVIDERS: ATTEND Surgery
DX: I77.819 Aortic ectasia, unspecified site (principal); I28.1 Aneurysm of pulmonary artery
CPT/HCPCS: 71250

== ENCOUNTER → 2023-09-14 | Outpatient (CLI) | payer BC ==
[2023-09-14 15:12] LABS: African American GFR (CKD) >90 (>60 ml/min/1.73 sqM); Blood Urea Nitrogen 21 mg/dL (9-20); Non-African American GFR(CKD) >90 (>60 ml/min/1.73 sqM)
--- NOTE | 2023-09-14 15:46 | CT ---
EXAMINATION TYPE: CT abdomen pelvis w con CT DLP: 1886 mGycm, Automated exposure control for dose reduction was used. DATE OF EXAM: 09/14/2023 3:33 PM COMPARISON: 09/27/2022 CLINICAL INDICATION:Male, 63 years old with history of K86.89 OTHER SPECIFIED DISEASES OF PANCREAS; P atient states that scan x 1 year ago showed a pancreatic lesion on the tail. TECHNIQUE: Axial CT abdomen pelvis w con;Sagittal and coronal reformats were created on a separate w orkstation. Contrast used:100 mL of Isovue 300 with IV Contrast, (none if empty) Oral contrast used: without Oral Contrast (none if empty) FINDINGS: LOWER CHEST: Unremarkable ABDOMEN LIVER: Arterial phase enhancing lesion in the dome of the liver. Similar to prior in 2021 measuring 9 mm. GALLBLADDER AND BILE DUCTS: Layering increased densities within the lumen consistent with gallstones are present. PANCREAS: Pancreatic tail lesion measuring 25 mm previously 25 mm. SPLEEN: Unremarkable. ADRENAL GLANDS: Unremarkable. KIDNEYS AND URETERS: No evidence of hydronephrosis or renal calculus. The ureters are unremarkable. PELVIS BLADDER: Unremarkable REPRODUCTIVE: Unremarkable. ABDOMEN & PELVIS STOMACH AND BOWEL: No evidence of bowel obstruction. PERITONEUM/RETROPERITONEUM: No evidence of pneumoperitoneum or free fluid. VASCULATURE: No evidence of aortic aneurysm. MUSCULOSKELETAL: No acute osseous abnormalities LYMPH NODES: No gross evidence for lymphadenopathy. SOFT TISSUE/ABDOMINAL WALL: Left fat-containing inguinal hernia.r IMPRESSION: 1. Stable size of Pancreatic tail lesion measuring 25 mm which is indeterminate. This may have been present on prior in 2022. Further evaluation MRI pancreatic mass protocol with IV contrast recommende d. Findings could represent pseudocyst versus side branch intraductal papillary mucinous neoplasm saud kamran other cystic pancreatic neoplasms. 2. Arterial enhancing lesion in the dome of the right hepatic lobe similar to prior in 2022. 3. Cholelithiasis.
== END | disposition home or self-care (01) ==
LOC: RADCTMAIN 14:33
PROVIDERS: ATTEND Family Medicine
DX: K86.89 Other specified diseases of pancreas (principal); K80.20 Calculus of gallbladder without cholecystitis without obstruction
CPT/HCPCS: 82565; 84520; 74177; 36415; Q9967

== ENCOUNTER → 2024-11-14 | Outpatient (CLI) | payer MEDICARE ==
[2024-11-14 19:40] LABS: ALT 29 U/L (10-49); AST 19 U/L (14-35); Albumin 4.4 g/dL (3.8-4.9); Albumin/Globulin Ratio 1.57 Ratio (1.60-3.17); Alkaline Phosphatase 75 U/L (41-126); Anion Gap 10.30 mmol/L (4.00-12.00); BUN/Creat Ratio 18.62 Ratio (12.00-20.00); Blood Urea Nitrogen 14.9 mg/dL (9.0-27.0); Calcium 9.7 mg/dL (8.7-10.3); Carbon Dioxide 27.7 mmol/L (21.6-31.8); Chloride 101 mmol/L (96-109); Globulin 2.8 g/dL (1.6-3.3); Glucose 125 mg/dL (70-110); Potassium 4.6 mmol/L (3.5-5.5); Sodium 139 mmol/L (135-145); Total Protein 7.2 g/dL (6.2-8.2)
[2024-11-14 19:49] LABS: Basophils # (A) 0.09 X 10*3/uL (0.00-0.10); Basophils % (A) 1.2 %; Eosinophils # (A) 0.11 X 10*3/uL (0.04-0.35); Eosinophils % (A) 1.4 %; HCT 51.0 % (39.6-50.0); HGB 16.7 g/dL (13.0-17.0); Immature Grans, Automated 0.70 %; Lymphocytes # (A) 2.28 X 10*3/uL (0.90-5.00); Lymphocytes % (A) 29.7 %; MCH 29.0 pg (27.0-32.0); MCHC 32.7 g/dL (32.0-37.0); MCV 88.7 FL (80.0-97.0); Monocytes # (A) 0.68 X 10*3/uL (0.20-1.00); Monocytes % (A) 8.9 %; NRBC Per 100 WBC 0 X 10*3/uL (0.00-0.01); Neutrophils # (A) 4.46 X 10*3/uL (1.80-7.70); Neutrophils % (A) 58.1 %; Platelet Count 184 X 10*3/uL (140-440); RBC 5.75 X 10*6/uL (4.40-5.60); RDW 16.4 % (11.5-14.5); WBC 7.67 X 10*3/uL (4.50-10.00)
== END | disposition home or self-care (01) ==
LOC: LABWHC1 15:44
PROVIDERS: ATTEND Internal Medicine Gastroenterology
DX: K52.9 Noninfective gastroenteritis and colitis, unspecified (principal); R19.5 Other fecal abnormalities
CPT/HCPCS: 36415; 80053; 83516; 85025